=== PATIENT | female | born 1990 | race Caucasian/White ===

== ENCOUNTER 2016-11-08 14:32 | Emergency (ER) | payer OTHER ==
[2016-11-08 14:39] VITALS: BP 137/76; RESP 20; TEMP 97.5
[2016-11-08] MEDS ORDERED: IPRATROPIUM-ALBUTEROL 3 ML NEB INHALATION STA (15:11)
[2016-11-08] MEDS ORDERED: ACETAMINOPHEN TAB 500 MG TAB PO STA (15:12)
--- NOTE | 2016-11-08 15:16 | ED ---
General Adult HPI - General Chief complaint: Recheck/Abnormal Lab/Rx Stated complaint: Abd Pain Time Seen by Provider: 11/08/16 15:06 Source: patient Mode of arrival: ambulatory Limitations: no limitations - History of Present Illness Initial comments: This 25-year-old white female presents with a complaint of some suprapubic abdominal pain which started approximately 3 hours ago. She also complains of some shortness of breath. She has had a cough for the past 3 days. She does have a history of asthma. She denies any production. She denies any actual fever. Severity is mild. The abdominal pain has resolved upon evaluation. She denies any urinary symptoms or possibility of . No other complaints or modifying factors. - Related Data Previous Rx's Medication Instructions Recorded Albuterol Sulfate [Proair Hfa] 1 - 2 puff INHALATION Q6HR PRN #1 11/08/16 inhaler Allergies Allergy/AdvReac Type Severity Reaction Status Date / Time No Known Allergies Allergy Verified 11/08/16 15:13 Review of Systems ROS Statement: Those systems with pertinent positive or pertinent negative responses have been documented in the HPI. ROS Other: All systems not noted in ROS Statement are negative. Past Medical History Past Medical History: Asthma History of Any Multi-Drug Resistant Organisms: None Reported Past Surgical History: Appendectomy, Section Additional Past Surgical History / Comment(s): duodenal surgery in childhood Past Anesthesia/Blood Transfusion Reactions: No Reported Reaction Past Psychological History: No Psychological Hx Reported Smoking Status: Never smoker - Past Family History Mother Family Medical History: No Reported History General Exam - General Exam Comments Initial Comments: GENERAL: The patient is well nourished and well hydrated. VITAL SIGNS: Heart rate, blood pressure, respiratory rate reviewed as recorded in nurse's notes. EYES: Pupils are round and reactive. Extraocular movements are intact. No conjunctival / lid redness or swelling. ENT: No external evidence of injury, swelling, or ecchymosis. Airway is patent. Throat is clear. NECK: Nontender. No swelling or evidence of injury. No subcutaneous emphysema. Trachea is midline. No thyroid mass. HEART: Regular rate and rhythm. Good peripheral pulses. LUNGS/CHEST: Breath sounds clear and equal bilaterally. No rales, rhonchi, or wheezes. No ecchymosis, subcutaneous emphysema, or tenderness. ABDOMEN: Abdomen soft without tenderness. No palpable masses or organomegaly. No peritoneal signs. No abdominal wall swelling or ecchymosis. EXTREMITIES: No extremity tenderness. Normal muscle tone and function. No thoracolumbar tenderness. NEUROLOGIC: Sensation is grossly intact. Cranial nerve exam reveals face is symmetrical, tongue is midline, speech is clear. SKIN: No abrasions or ecchymosis is noted. No induration or masses noted. PSYCHIATRIC: Alert and oriented. Appropriate behavior and judgment. Limitations: no limitations Course Vital Signs 11/08/16 11/08/16 11/08/16 14:36 15:16 15:35 Temperature 97.5 F L Pulse Rate 99 99 102 H Respiratory 20 Rate Blood Pressure 137/76 O2 Sat by Pulse 100 Oximetry Medical Decision Making - Medical Decision Making The patient was seen and examined. All diagnostics were reviewed. She does receive some Tylenol as well as DuoNeb breathing treatment. The chest x-ray does not show any acute processes. The abdominal portion x-rays negative. The urinalysis does not show any evidence of infection. The test is negative. The exact cause of patient's symptoms are not definitively determined. It is felt as though she is stable for discharge. She may have had a slight degree of asthma exacerbation will be prescribed an inhaler. She is instructed to take Tylenol and/or Motrin if needed for pain and leaves in no distress. - Lab Data Lab Results 11/08/16 11/08/16 Range/Units 15:19 15:19 Urine Color Yellow Urine Appearance Clear (Clear) Urine pH 7.0 (5.0-8.0) Ur Specific [place] 1.017 (1.001-1.035) Urine Protein Trace H (Negative) Urine Glucose (UA) Negative (Negative) Urine Ketones Negative (Negative) Urine Blood Negative (Negative) Urine Nitrite Negative (Negative) Urine Bilirubin Negative (Negative) Urine Urobilinogen <2.0 (<2.0) mg/dL Ur Leukocyte Esterase Negative (Negative) Urine HCG, Qual Not Detected (Not Detectd) Disposition Clinical Impression: Abdominal pain, Dyspnea, Asthma Disposition: HOME SELF-CARE Condition: Good Instructions: Abdominal Pain (ED), Dyspnea (ED), Asthma (ED) Additional Instructions: Please take Tylenol and/or Motrin if needed for pain. Prescriptions: Albuterol Sulfate [Proair Hfa] 1 - 2 puff INHALATION Q6HR PRN #1 inhaler PRN Reason: Shortness Of Breath Or Wheezing Referrals: None,Stated [Primary Care Provider] - 1-2 days Time of Disposition: 17:03
[2016-11-08 15:24] LABS: Appearance,Urine Clear (Clear); Bilirubin,Urine Negative (Negative); Glucose,Urine (UA) Negative (Negative); Ketones,Urine Negative (Negative); Leukocyte Esterase,Urine Negative (Negative); Nitrite,Urine Negative (Negative); Protein,Urine Trace (Negative); Specific Gravity,Urine 1.017 (1.001-1.035); UA Billing (MACRO vs. MICRO) CHEM; Urobilinogen,Urine <2.0 mg/dL (<2.0)
[2016-11-08 15:35] VITALS: PULSE 102
--- NOTE | 2016-11-08 16:52 | XR ---
EXAMINATION TYPE: XR abdomen acute w cxr DATE OF EXAM: 11/08/2016 COMPARISON: NONE HISTORY: Chest pain TECHNIQUE: Supine, upright, and left side down lateral decubitus views of the abdomen are obtained. FINDINGS: Heart and mediastinum are normal. Lungs are clear. Diaphragm is normal. Bowel gas pattern is normal. There is no sign of intestinal obstruction or pneumoperitoneum. Fecal pa ttern is normal. There are no pathologic calcifications over the kidneys. IMPRESSION: Nonacute abdomen. Normal chest. Chest is stable compared to 10/12/2008.
== END 2016-11-08 17:19 | disposition home or self-care (01) ==
LOC: EC 14:32
DX: J45.909 Unspecified asthma, uncomplicated (principal); R10.30 Lower abdominal pain, unspecified; Z90.49 Acquired absence of other specified parts of digestive tract
CPT/HCPCS: 74022; 81003; 81025; 94640; 99285

== ENCOUNTER 2016-12-21 06:22 | Emergency (ER) | payer OTHER ==
[2016-12-21 06:26] VITALS: BP 156/72; PULSE 105; TEMP 97.1
--- NOTE | 2016-12-21 06:27 | ED ---
General Adult HPI - General Stated complaint: BRANDEN Time Seen by Provider: 12/21/16 06:22 Source: RN notes reviewed - History of Present Illness Initial comments: This is a 26-year-old female with past medical history significant for asthma. Patient states she was at work he started having some difficulty breathing took a couple of puffs on her inhaler and then became anxious she states that she couldn't tell she is having difficulty breathing or was anxiety. Patient called the ambulance and was arrived they stated that she was 98% on room air and having no ability breathing objectively. They did give the patient one breathing treatment when she arrived at the emergency department she was oxygenating 100%. Patient denies any fever chills or cough. Patient denies any chest pain or palpitations. Patient states she's feeling back to her baseline at this time. - Related Data Previous Rx's Medication Instructions Recorded Albuterol Sulfate [Proair Hfa] 1 - 2 puff INHALATION Q6HR PRN #1 11/08/16 inhaler Allergies Allergy/AdvReac Type Severity Reaction Status Date / Time No Known Allergies Allergy Verified 11/08/16 15:13 Review of Systems ROS Statement: Those systems with pertinent positive or pertinent negative responses have been documented in the HPI. ROS Other: All systems not noted in ROS Statement are negative. Past Medical History Past Medical History: Asthma History of Any Multi-Drug Resistant Organisms: None Reported Past Surgical History: Appendectomy, Section Additional Past Surgical History / Comment(s): duodenal surgery in childhood Past Anesthesia/Blood Transfusion Reactions: No Reported Reaction Past Psychological History: No Psychological Hx Reported Smoking Status: Never smoker - Past Family History Mother Family Medical History: No Reported History General Exam - General Exam Comments Initial Comments: GENERAL: Patient is well-developed and well-nourished. Patient is nontoxic and well- hydrated and is in no distress. ENT: Neck is soft and supple. No significant lymphadenopathy is noted. Oropharynx is clear. Moist mucous membranes. Neck has full range of motion without eliciting any pain. EYES: The sclera were anicteric and conjunctiva were pink and moist. Extraocular movements were intact and pupils were equal round and reactive to light. Eyelids were unremarkable. PULMONARY: Unlabored respirations. Good breath sounds bilaterally. No audible rales rhonchi or wheezing was noted. CARDIOVASCULAR: There is a regular rate and rhythm without any murmurs gallops or rubs. ABDOMEN: Soft and nontender with normal bowel sounds. SKIN: Skin is clear with no lesions or rashes and otherwise unremarkable. NEUROLOGIC: Patient is alert and oriented x3. Cranial nerves II through XII are grossly intact. Motor and sensory are also intact. Normal speech, volume and content. Symmetrical smile. MUSCULOSKELETAL: Normal extremities with adequate strength and full range of motion. No lower extremity swelling or edema. No calf tenderness. LYMPHATICS: No significant lymphadenopathy is noted PSYCHIATRIC: Normal psychiatric evaluation. Disposition Clinical Impression: Asthma attack Disposition: HOME SELF-CARE Condition: Good Instructions: Asthma (ED) Referrals: None,Stated [Primary Care Provider] - 1-2 days Time of Disposition: 06:27
[2016-12-21 06:31] VITALS: RESP 18
== END 2016-12-21 06:51 | disposition home or self-care (01) ==
LOC: EC 06:22
DX: J45.909 Unspecified asthma, uncomplicated (principal)
CPT/HCPCS: 99285

== ENCOUNTER 2017-09-22 11:37 | Emergency (ER) | payer OTHER ==
[2017-09-22 11:46] VITALS: BP 138/94; PULSE 92; RESP 20; TEMP 98.1
--- NOTE | 2017-09-22 12:23 | ED ---
Extremity Problem HPI - General Chief complaint: Extremity Problem,Nontraumatic Stated complaint: Foot Pain Time Seen by Provider: 09/22/17 12:08 Source: patient, RN notes reviewed Mode of arrival: ambulatory Limitations: no limitations - History of Present Illness Initial comments: This this is a 26-year-old female who presents to the emergency department with chief complaint of left foot pain. Patient states that she has been experiencing plantar foot pain for the past couple of months. Pain is from the heel to the pad of the foot. She states that the pain is made worse after working. Patient describes the pain as sharp and shooting. She states that she has to walk on the lateral aspect of her foot to take pressure off of the bottom of her foot. She currently states that she is experiencing no pain, however over the past few days she has been unable to walk on the foot due to pain. Patient denies any specific injuries or trauma. She does state that her foot becomes swollen after being on it all day. She states that she has been elevating it and taking ibuprofen with minimal relief. Denies fevers or chills , chest pain or shortness of breath, abdominal pain, nausea or vomiting. - Related Data Previous Rx's Medication Instructions Recorded Albuterol Sulfate [Proair Hfa] 1 - 2 puff INHALATION Q6HR PRN #1 11/08/16 inhaler Allergies Allergy/AdvReac Type Severity Reaction Status Date / Time No Known Allergies Allergy Verified 09/22/17 11:46 Review of Systems ROS Statement: Those systems with pertinent positive or pertinent negative responses have been documented in the HPI. ROS Other: All systems not noted in ROS Statement are negative. Past Medical History Past Medical History: Asthma History of Any Multi-Drug Resistant Organisms: None Reported Past Surgical History: Appendectomy, Section Additional Past Surgical History / Comment(s): duodenal surgery in childhood Past Anesthesia/Blood Transfusion Reactions: No Reported Reaction Past Psychological History: No Psychological Hx Reported Smoking Status: Never smoker Past Alcohol Use History: None Reported Past Drug Use History: None Reported - Past Family History Mother Family Medical History: No Reported History General Exam - General Exam Comments Initial Comments: General: Awake and alert, well-developed; in no apparent distress. Patient sitting comfortably on ED stretcher. HEENT: Head atraumatic, normocephalic. Pupils are equal, round and reactive to light. Extraocular movements intact. Oropharynx moist without erythema or exudate. Neck: Supple. Normal ROM. Cardiovascular: Regular rate and rhythm. No murmurs, rubs or gallops. Chest symmetrical. Respiratory: Lungs clear to auscultation bilaterally. No wheezes, rales or rhonchi. Normal respiratory effort with no use of accessory muscles. Musculoskeletal: Normal range of motion of the left foot and digits. No tenderness on palpation of entire foot. No erythema, swelling, ecchymosis or gross deformities noted. Sensation is intact. Pedal pulses are 2+ equal and palpable bilaterally. Ambulating normally. Skin: Coqui, warm and dry without rashes or lesions. Neurological: Alert and oriented x3. CN II-XII grossly intact. Speech is fluent and answers are appropriate. No focal neuro deficits. Psychiatric: Normal mood and affect. No overt signs of depression or anxiety noted. Limitations: no limitations Course Vital Signs 09/22/17 11:43 Temperature 98.1 F Pulse Rate 92 Respiratory 20 Rate Blood Pressure 138/94 O2 Sat by Pulse 98 Oximetry Medical Decision Making - Medical Decision Making This is a 26 year-old female who presents to the emergency department with chief complaint of left foot pain for two months. Pain increases after being on the foot for long periods of time, specifically after finishing her shift at work. Pain is described as sharp and shooting from the heel to the pad of the left foot. Currently, no pain is reported. Patient is ambulating normally and there is no tenderness on palpation. X-ray of the left foot was obtained and revealed no acute fractures but did note a small plantar spur. Patient likely suffering from plantar fasciitis. Recommended ibuprofen, ice and arch support shoe inserts. Recommended following up with PCP. Vital signs are stable and patient is in no acute distress. She will be discharged home at this time. She is in agreement with plan and voices understanding. All questions answered. - Radiology Data Radiology results: report reviewed, image reviewed X-ray left foot impression: Small plantar spur. Disposition Clinical Impression: Plantar fasciitis, Calcaneal spur Disposition: HOME SELF-CARE Condition: Good Instructions: Plantar Fasciitis (ED), Heel Spur (ED) Additional Instructions: Please rest, ice, elevate, take ibuprofen and use heel/arch support shoe inserts. Please follow up with primary care provider within 1-2 days. Return to emergency department if symptoms should worsen or any concerns arise. Is patient prescribed a controlled substance at d/c from ED?: No Referrals: Prudence Forrest MD [Primary Care Provider] - 1-2 days Time of Disposition: 12:41
--- NOTE | 2017-09-22 12:34 | XR ---
Left foot HISTORY: Left foot pain 3 views of the left foot Bone mineralization, joint spaces and alignment are maintained. There is no fracture or dislocation. No periostitis or radiopaque foreign body. There is a small plantar cranial spur. IMPRESSION: Small plantar spur.
== END 2017-09-22 12:47 | disposition home or self-care (01) ==
LOC: EC 11:37
DX: M72.2 Plantar fascial fibromatosis (principal); M77.32 Calcaneal spur, left foot
CPT/HCPCS: 99283

== ENCOUNTER 2017-10-10 13:30 | Emergency (ER) | payer OTHER ==
[2017-10-10 13:42] VITALS: RESP 18
--- NOTE | 2017-10-10 13:51 | ED ---
General Adult HPI - General Chief complaint: Extremity Injury, Upper Stated complaint: Fingernail removed Time Seen by Provider: 10/10/17 13:50 Source: patient, RN notes reviewed Mode of arrival: ambulatory Limitations: no limitations - History of Present Illness Initial comments: This is a 26-year-old female with past medical history of asthma who presents today for chief complaint of right third finger nail hanging off. Patient states that about a month ago she slammed her right middle finger into a door, the nail bruise and eventually began to fall off. Patient denies pain in the finger since the time of injury. Patient states that for the past 2 weeks the finger-nose but again, and everything, she states that this is bothersome and [facility] the right middle nail. Patient denies any pain in the right middle finger today, paresthesias, numbness, tingling, loss of sensation, erythema of the right middle finger, lacerations or abrasions to the nailbed or striking tissues of the right middle finger. In addition patient denies any recent fever, chills, shortness of breath, chest pain, back pain, abdominal pain, nausea or vomiting, numbness or tingling, dysuria or hematuria, constipation or diarrhea, headaches or visual changes, or any other complaints. - Related Data Home Medications Medication Instructions Recorded Confirmed No Known Home Medications 10/10/17 10/10/17 Allergies Allergy/AdvReac Type Severity Reaction Status Date / Time No Known Allergies Allergy Verified 10/10/17 13:48 Review of Systems ROS Statement: Those systems with pertinent positive or pertinent negative responses have been documented in the HPI. ROS Other: All systems not noted in ROS Statement are negative. Past Medical History Past Medical History: Asthma History of Any Multi-Drug Resistant Organisms: None Reported Past Surgical History: Appendectomy, Section Additional Past Surgical History / Comment(s): duodenal surgery in childhood Past Anesthesia/Blood Transfusion Reactions: No Reported Reaction Past Psychological History: No Psychological Hx Reported Smoking Status: Never smoker Past Alcohol Use History: None Reported Past Drug Use History: None Reported - Past Family History Mother Family Medical History: No Reported History General Exam - General Exam Comments Initial Comments: General: The patient is awake and alert, in no distress, and does not appear acutely ill. Eye: Pupils are equal, round and reactive to light, extra-ocular movements are intact. No nystagmus. There is normal conjunctiva bilaterally. No signs of icterus. Ears, nose, mouth and throat: There are moist mucous membranes and no oral lesions. Neck: The neck is supple, there is no tenderness or JVD. Cardiovascular: There is a regular rate and rhythm. No murmur, rub or gallop is appreciated. Respiratory: Lungs are clear to auscultation, respirations are non-labored, breath sounds are equal. No wheezes, stridor, rales, or rhonchi. Musculoskeletal: Upon inspection of the right hand the right middle finger nail is not adhered to the nailbed, there is new nail growth present. No evidence of damage to the nailbed or surrounding soft tissues. Patient is full sensation of the right hand and all 5 digits equally bilaterally. Full range of motion and strength of the DIP, PIP and MCP joint of all 5 digits of the right hand that is equal in comparison of the left. No tenderness to palpation over the right middle finger. Pulses equal bilaterally 2+ radial. Neurological: A&O x 3. CN II-XII intact, There are no obvious motor or sensory deficits. Coordination appears grossly intact. Speech is normal. Skin: Skin is warm and dry and no rashes or lesions are noted. Psychiatric: Cooperative, appropriate mood & affect, normal judgment. Limitations: no limitations Course Vital Signs 10/10/17 13:38 Temperature 98.1 F Pulse Rate 84 Respiratory 18 Rate Blood Pressure 121/76 O2 Sat by Pulse 98 Oximetry Medical Decision Making - Medical Decision Making Area was cleansed with a chlorhexidine White, 3/4 of the right middle nail were removed using scissors. The remaining 1/4 was adhered to the nail bed. Pt was instructed to leave this area on for nail bed protection and to cut it back with finger nail clippers as it grow out with the new nail growth. A bandage was applied to the nail. Procedure went without complications. pt was instructed to return to the ER if the are became red, pain, warm or began draining. Pt agreed with plan. Plan was discussed with Dr. Esquivel in detail. pt was discharged in stable condition. Disposition Clinical Impression: Nail remnant, finger Disposition: HOME SELF-CARE Condition: Good Instructions: Nail Removal (ED) Additional Instructions: Please follow-up with family doctor in the next 2 days of symptoms have not improved. Please return to emergency room if the symptoms increase or worsen or for any other concerns. Is patient prescribed a controlled substance at d/c from ED?: No Referrals: Prudence Forrest MD [Primary Care Provider] - 1-2 days Time of Disposition: 14:08
[2017-10-10 14:15] VITALS: BP 131/88; PULSE 90; TEMP 96.4
== END 2017-10-10 14:13 | disposition home or self-care (01) ==
LOC: EC 13:30
DX: S61.302A Unspecified open wound of right middle finger with damage to nail, initial encounter (principal); W22.8XXA Striking against or struck by other objects, initial encounter; Y92.009 Unspecified place in unspecified non-institutional (private) residence as the place of occurrence of the external cause
CPT/HCPCS: 11730; 99283

== ENCOUNTER → 2017-12-05 | Outpatient (CLI) | payer OTHER ==
--- NOTE | 2017-12-05 09:12 | US ---
EXAMINATION TYPE: US abdomen complete DATE OF EXAM: 12/05/2017 COMPARISON: NONE CLINICAL HISTORY: R11.0 Chronic nausea. x 3 months EXAM MEASUREMENTS: Liver Length: 12.1 cm Gallbladder Wall: 0.1 cm CBD: 0.3 cm Spleen: 11.5 cm Right Kidney: 10.5 x 3.6 x 3.4 cm Left Kidney: 10.6 x 4.8 x 4.7 cm Pancreas: Partially obscured by overlying bowel gas Liver: Increased attenuation Gallbladder: wnl Evidence for sonographic Keating's sign: No CBD: wnl Spleen: wnl Right Kidney: Obscured by overlying bowel gas, Difficult to evaluate mid/lower pole. Left Kidney: wnl Upper IVC: wnl Abd Aorta: wnl The visualized liver is heterogeneously hyperechoic. No worrisome intrahepatic ductal dilatation is s een. Evaluation for focal masses suboptimal due to the heterogeneity. The intrahepatic portion of the IVC and proximal abdominal aorta are within normal limits. There is no evidence of cholelithiasis. Common bile duct is unremarkable. The visualized portions of the pancreas are homogenous. Portions of pancreatic head and tail are obscured by overlying bowel gas on images saved. The spleen is unrema rkable. Kidneys are symmetric and free of hydronephrosis. No renal lesions are seen. IMPRESSION: Suboptimal study without acute finding identified to account for patient's symptoms.
== END ==
LOC: RADUSWWP 07:31
PROVIDERS: ATTEND Family Medicine
DX: R11.0 Nausea (principal)
CPT/HCPCS: 76700

== ENCOUNTER → 2018-02-21 | Outpatient (CLI) | payer OTHER ==
--- NOTE | 2018-02-21 10:55 | NM ---
EXAMINATION TYPE: NM hepatobiliary w EF DATE OF EXAM: 02/21/2018 COMPARISON: NONE HISTORY: R11.0 Nausea alone / R74.8 Abn serum enzymes TECHNIQUE: After the intravenous administration of 5.17 mCi Tc 99m Mebrofenin hepatobiliary scintigra phy is performed. Immediate images post injection. FINDINGS: There is satisfactory initial accumulation of tracer by the liver. The gallbladder is visualized wit hin 8 minutes. The small bowel activity is noted within 54 minutes. At one hour 8 ounces of oral en sure plus is given to mimic CCK and gallbladder ejection fraction is calculated at 86%. IMPRESSION: Elevated gallbladder ejection fraction may reflect hypercontractile state.
== END | disposition home or self-care (01) ==
LOC: RADNMMAIN 08:14
PROVIDERS: ATTEND Family Medicine
DX: R11.0 Nausea (principal); R74.8 Abnormal levels of other serum enzymes
CPT/HCPCS: 78226; A9537

== ENCOUNTER 2018-03-13 07:29 | Observation (INO) | payer OTHER ==
[2018-03-10 15:30] VITALS: BMI 39.2
[~2018-03-13 07:29] MED LIST: DEXAMETHASONE SOD PHOSPHATE 10 MG/ML 1 ML VIAL IV ONE; HEPARIN SODIUM,PORCINE 5,000 UNIT/ML 1 ML VIAL SQ ONE; LIDOCAINE 1% 20 ML VIAL (10MG/ML) FOR IV START INTRADERMA PRN; MIDAZOLAM (PF) 2 MG/2 ML VIAL IV PRN; ONDANSETRON 4 MG/2 ML VIAL IVP ONE; ceFAZolin IN SWFI 2 GM/20 ML SYRINGE IVP ONE; fentaNYL (PF) 50 MCG/ML 2 ML AMP IV PRN
--- NOTE | 2018-03-13 08:10 | P.GSHP ---
History of Present Illness H&P Date: 03/13/18 Chief Complaint: Right upper quadrant pain This is a 27-year-old female who's had complete the right quadrant pain. Her recent HIDA scan shows an elevated ejection fraction consistent with biliary hyperkinesia's. She presents today for laparoscopic cholecystectomy. Past Medical History Past Medical History: Asthma Additional Past Medical History / Comment(s): GALLBLADDER DISORDER History of Any Multi-Drug Resistant Organisms: None Reported Past Surgical History: Appendectomy, Section Additional Past Surgical History / Comment(s): duodenal surgery in childhood Past Anesthesia/Blood Transfusion Reactions: No Reported Reaction Smoking Status: Never smoker - Past Family History Mother Family Medical History: No Reported History Medications and Allergies Home Medications Medication Instructions Recorded Confirmed Type Ranitidine HCl 150 mg PO BID 03/10/18 03/13/18 History Allergies Allergy/AdvReac Type Severity Reaction Status Date / Time No Known Allergies Allergy Verified 03/13/18 07:53 Surgical - Exam Vital Signs Pulse Resp BP Pulse Ox 89 16 144/88 98 03/13/18 08:04 03/13/18 08:04 03/13/18 08:04 03/13/18 08:04 - General well developed, no distress - Eyes PERRL - ENT normal pinna - Neck no masses - Respiratory normal expansion - Cardiovascular Rhythm: regular - Abdomen Abdomen: soft, non tender Assessment and Plan Assessment: Right upper quadrant pain Abnormal HIDA scan Chronic cholecystitis We'll perform laparoscopic cholecystectomy
[2018-03-13] MEDS: LACTATED RINGERS 1,000 ML IV SCH ×2 (08:27→09:06)
[2018-03-13] MEDS ORDERED: ceFAZolin IN SWFI 2 GM/20 ML SYRINGE IVP ONE (08:38)
[2018-03-13] MEDS ORDERED: BUPIVACAIN-EPI 0.25%-1:200,000 30 ML VIAL SQ ONE (08:51)
[2018-03-13] MEDS ORDERED: ONDANSETRON 4 MG/2 ML VIAL IVP PRN (10:14)
[2018-03-13] MEDS ORDERED: traMADol 50 MG TAB PO PRN (10:14)
[2018-03-13] MEDS ORDERED: NALOXONE 0.4 MG/ML 1 ML VIAL IV PRN (10:14)
[2018-03-13] MEDS ORDERED: ACETAMINOPHEN TAB 325 MG TAB PO PRN (10:14)
[2018-03-13] MEDS ORDERED: LACTATED RINGERS 1,000 ML IV ONE (10:14)
--- NOTE | 2018-03-13 10:21 | P.OP ---
Date of Procedure: 03/13/18 Preoperative Diagnosis: Cholecystitis Postoperative Diagnosis: Adhesions Cholecystitis Procedure(s) Performed: Laparoscopic lysis of extensive adhesions Open cholecystectomy Anesthesia: ALIN Surgeon: Javi Cooley Estimated Blood Loss (ml): 10 Pathology: other (Gallbladder) Condition: stable Disposition: PACU Operative Findings: Extensive adhesions Description of Procedure: Patient's placed the operative table in the supine position. She received general anesthesia. Her abdomen was prepped and draped usual sterile fashion. Patient had a transverse right mid abdominal incision and evidence of previous drains on the left side of the abdomen. Per history she had a duodenal injury as an 9-year-old child. The skin incision sites were anesthetized 1% local Xylocaine. Using 11 blade in an infraumbilical skin incision was made and then using a pair of [place] clamps the fascia was grasped and a Veress needles placed into the peritoneal Cavity. Position of the Veress needle was confirmed with a positive drop test. After adequate insufflation a 5 mm trochars placed into the peritoneal cavity. The laparoscope was placed the pleural cavity. The patient had significant adhesions across the midabdomen. Another 5 mm trocar was placed under direct vision in the right upper quadrant. And then approximately 20 minutes of operative time used to lyse adhesions. It was determined that there were 2 adhesions to safely do anal laparoscopic cholestatic. And at this point the procedure is converted to the open procedure. The trochars withdrawn. A standard right subcostal incision was made and then using cautery the abdominal wall was transected. The Leblanc retractors placed in the wound. Adhesions were lysed using sharp dissection. The gallbladder is visualized. The gallbladder was then grasped. Yasmeen clamps and then the gallbladder was taken down in a dome down fashion. The cystic artery was visualized and dissected. Cystic artery was then clipped and divided. Next the cystic duct was visualized. In the PDS Endoloop was placed around the gallbladder and secured around the cystic duct. The cystic duct was then transected and then the cystic stump was clipped. The Bovie was used to provide hemostasis of liver bed. The abdomen was irrigated. There is no bleeding seen. The fascia was closed in 2 layers using the PDS #1 suture. The skin was closed hussein. Patient tolerated the procedure well and was sent to recovery room in stable condition.
[2018-03-13] MEDS: KETOROLAC 30 MG/ML 1 ML VIAL IVP SCH ×3 (12:35→23:14)
[2018-03-13] MEDS: HYDROmorphone 0.5 MG/0.5 ML SYRINGE IVP PRN ×2 (12:50→17:43)
--- NOTE | 2018-03-13 14:53 | P.CONS ---
History of Present Illness - Reason for Consult Perioperative complication management - History of Present Illness 27-year-old admitted for elective to laparoscopic cholecystectomy for biliary hypokinesia, patient was having right upper quadrant abdominal pain. Patient successfully underwent surgery. Patient is still coming out of anesthesia denied any symptoms except for right upper quadrant abdominal pain denied any nausea and vomiting. Denied any fever chills dysuria. Review of Systems REVIEW OF SYSTEMS: CONSTITUTIONAL: No fever, no malaise, no fatigue. HEENT: No recent visual problems or hearing problems. Denied any sore throat. CARDIOVASCULAR: No chest pain, orthopnea, PND, no palpitations, no syncope. PULMONARY: No shortness of breath, no cough, no hemoptysis. GASTROINTESTINAL: No diarrhea, no nausea, no vomiting, NEUROLOGICAL: No headaches, no weakness, no numbness. HEMATOLOGICAL: Denies any bleeding or petechiae. GENITOURINARY: Denies any burning micturition, frequency, or urgency. MUSCULOSKELETAL/RHEUMATOLOGICAL: Denies any joint pain, swelling, or any muscle pain. ENDOCRINE: Denies any polyuria or polydipsia. The rest of the 14-point review of systems is negative. Past Medical History Past Medical History: Asthma Additional Past Medical History / Comment(s): GALLBLADDER DISORDER History of Any Multi-Drug Resistant Organisms: None Reported Past Surgical History: Appendectomy, Section Additional Past Surgical History / Comment(s): duodenal surgery in childhood Past Anesthesia/Blood Transfusion Reactions: No Reported Reaction Past Psychological History: No Psychological Hx Reported Smoking Status: Never smoker Past Alcohol Use History: None Reported Past Drug Use History: None Reported - Past Family History Mother Family Medical History: No Reported History Brother(s) Family Medical History: No Reported History Medications and Allergies Home Medications Medication Instructions Recorded Confirmed Type Ranitidine HCl 150 mg PO BID 03/10/18 03/13/18 History Allergies Allergy/AdvReac Type Severity Reaction Status Date / Time No Known Allergies Allergy Verified 03/13/18 07:53 Physical Exam Vitals: Vital Signs Temp Pulse Resp BP Pulse Ox 03/13/18 11:05 78 16 136/92 96 03/13/18 10:45 74 16 148/98 96 03/13/18 10:30 72 16 142/93 100 03/13/18 10:18 71 16 133/89 100 03/13/18 10:02 97.0 F L 71 18 146/97 95 03/13/18 08:05 98.4 F 03/13/18 08:04 89 16 144/88 98 Intake and Output 03/12/18 03/13/18 03/13/18 22:59 06:59 14:59 Intake Total 1600 Output Total 10 Balance 1590 Intake: IV 1600 Output: Estimated Blood Loss 10 Other: Weight 107.048 kg PHYSICAL EXAMINATION: GENERAL: The patient is alert and oriented x3, not in any acute distress. Well developed, well nourished. HEENT: Pupils are round and equally reacting to light. EOMI. No scleral icterus. No conjunctival pallor. Normocephalic, atraumatic. No pharyngeal erythema. No thyromegaly. CARDIOVASCULAR: S1 and S2 present. No murmurs, rubs, or gallops. PULMONARY: Chest is clear to auscultation, no wheezing or crackles. ABDOMEN: Soft, nontender, vaginal site area appears to be clean. MUSCULOSKELETAL: No joint swelling or deformity. EXTREMITIES: No cyanosis, clubbing, or pedal edema. NEUROLOGICAL: Gross neurological examination did not reveal any focal deficits. SKIN: No rashes. Assessment and Plan Plan: -Postoperative day 0 status post laparoscopic cholecystectomy for biliary hypokinesia: Pain management and due to prophylaxis as per primary service -Gastroesophageal reflux disease patient will be started on Pepcid IV Will monitor for any postoperative complications including infection, hypotension and will treat appropriately if she ends up having any of these.
[2018-03-14] MEDS: HYDROmorphone 0.5 MG/0.5 ML SYRINGE IVP PRN (03:08)
[2018-03-14] MEDS: KETOROLAC 30 MG/ML 1 ML VIAL IVP SCH ×4 (05:00→21:24)
[2018-03-14] MEDS: HYDROcodone/APAP 5-325MG 1 EACH TAB PO PRN ×2 (07:34→23:37)
[2018-03-14] MEDS: LACTATED RINGERS 1,000 ML IV SCH (10:33)
--- NOTE | 2018-03-14 10:33 | P.PN ---
Subjective 27-year-old admitted for laparoscopic cholecystectomy successfully underwent surgery does have good bowel sounds not pass gas yet did burp today. Does have good bowel sounds. It is comparing of some soreness in the surgical site area. Constitutional: Denied any fatigue denied any fever. Cardio vascular: denied any chest pain, palpitations Gastrointestinal denied any nausea vomiting Pulmonary: Denied any shortness of breath cough Neurologic denied any new focal deficits All inpatient medications were reviewed and appropriate changes in these medications as dictated in the interval history and assessment and plan. Objective - Vital Signs Vital signs: Vital Signs Temp 98.5 F 03/13/18 23:18 Pulse 89 03/13/18 23:18 Resp 16 03/13/18 23:18 BP 149/102 03/13/18 23:18 Pulse Ox 100 03/13/18 23:18 Intake & Output 03/13/18 03/14/18 03/14/18 18:59 06:59 18:59 Intake Total 1780 1250 Output Total 260 Balance 1520 1250 Weight 107.048 kg Intake: IV 1600 Intake, IV Titration 1250 Amount Lactated Ringers 1,000 ml 1250 @ 125 mls/hr IV .Q8H [facility] Rx#:[id number] Oral 180 Output: Urine 250 Estimated Blood Loss 10 Other: # Voids 1 - Exam PHYSICAL EXAMINATION: GENERAL: The patient is alert and oriented x3, not in any acute distress. Well developed, well nourished. HEENT: Pupils are round and equally reacting to light. EOMI. No scleral icterus. No conjunctival pallor. Normocephalic, atraumatic. No pharyngeal erythema. No thyromegaly. CARDIOVASCULAR: S1 and S2 present. No murmurs, rubs, or gallops. PULMONARY: Chest is clear to auscultation, no wheezing or crackles. ABDOMEN: Soft, nontender, vaginal site area appears to be clean. MUSCULOSKELETAL: No joint swelling or deformity. EXTREMITIES: No cyanosis, clubbing, or pedal edema. NEUROLOGICAL: Gross neurological examination did not reveal any focal deficits. SKIN: No rashes. Assessment and Plan Plan: -Postoperative day 0 status post laparoscopic cholecystectomy for biliary hypokinesia: Pain management and due to prophylaxis as per primary service -Gastroesophageal reflux disease, patient will continue Zantac upon discharge Patient probably will be discharged today, I asked patient to ambulate in the hallways
[2018-03-14] MEDS: ENOXAPARIN 40 MG/0.4 ML SYRINGE SQ SCH (10:35)
--- NOTE | 2018-03-14 14:03 | P.PN ---
Progress Note - Text Progress Note Date: 03/14/18 The patient's postoperative day 1 from scopic lysis of adhesions and open cholecystectomy. She has complaints of incisional pain. On exam her vital signs are stable. Her abdomen soft. Incision site is clean dry and intact. Patient is doing fairly well. She will discharge home tomorrow.
[2018-03-15] MEDS: KETOROLAC 30 MG/ML 1 ML VIAL IVP SCH (03:53)
[2018-03-15 07:38] VITALS: BP 142/97; PULSE 88; RESP 16; TEMP 98.1
[2018-03-15] MEDS: LACTATED RINGERS 1,000 ML IV SCH (07:41)
[2018-03-15] MEDS: HYDROcodone/APAP 5-325MG 1 EACH TAB PO PRN (07:44)
[2018-03-15] MEDS: ENOXAPARIN 40 MG/0.4 ML SYRINGE SQ SCH (07:44)
--- NOTE | 2018-03-15 10:05 | P.PN ---
Subjective Progress Note Date: 03/15/18 Principal diagnosis: Cholecystitis Patient doing well today. Pain is improved. Tolerating some of her diet. Not very active thus far. No labs. Objective - Vital Signs Vital signs: Vital Signs Temp 98.1 F 03/15/18 07:00 Pulse 88 03/15/18 07:00 Resp 16 03/15/18 07:45 BP 142/97 03/15/18 07:00 Pulse Ox 96 03/15/18 07:00 Intake & Output 03/14/18 03/15/18 03/15/18 18:59 06:59 18:59 Intake Total 160 Balance 160 Intake: Intake, IV Titration 160 Amount Lactated Ringers 1,000 ml 160 @ 20 mls/hr IV .Q24H [facility] Rx#:[id number] Other: Voiding Method Toilet - Exam Endocrine: Soft, nondistended, incision is clean and dry, mild tenderness Assessment and Plan Plan: Check morning labs. Possible discharge later today or tomorrow morning if more active. Prescription for [place] provided.
[2018-03-15 10:59] LABS: Basophils % (A) 0 %; Eosinophils # (A) 0.1 k/uL (0-0.7); Eosinophils % (A) 1 %; HCT 36.9 % (34.0-46.0); Lymphocytes # (A) 2.4 k/uL (1.0-4.8); Lymphocytes % (A) 26 %; MCH 25.8 pg (25.0-35.0); MCHC 32.4 g/dL (31.0-37.0); MCV 79.8 fL (80.0-100.0); Monocytes # (A) 0.8 k/uL (0-1.0); Monocytes % (A) 8 %; Neutrophils # (A) 5.6 k/uL (1.3-7.7); Neutrophils % (A) 62 %; Platelet Count 238 k/uL (150-450); RBC 4.63 m/uL (3.80-5.40); RDW 14.5 % (11.5-15.5)
[2018-03-15 11:18] LABS: ALT 61 U/L (9-52); AST 54 U/L (14-36); Albumin 3.5 g/dL (3.5-5.0); Alkaline Phosphatase 93 U/L (38-126); Anion Gap 6 mmol/L; Blood Urea Nitrogen 11 mg/dL (7-17); Calcium 9.2 mg/dL (8.4-10.2); Carbon Dioxide 29 mmol/L (22-30); Chloride 105 mmol/L (98-107); Glucose 88 mg/dL (74-99); Potassium 4.1 mmol/L (3.5-5.1); Sodium 140 mmol/L (137-145); Total Bilirubin 0.3 mg/dL (0.2-1.3); Total Protein 6.4 g/dL (6.3-8.2)
--- NOTE | 2018-03-15 12:03 | P.PN ---
Subjective 27-year-old admitted for laparoscopic cholecystectomy successfully underwent surgery does have good bowel sounds not pass gas yet did burp today. Does have good bowel sounds. It is comparing of some soreness in the surgical site area. 03/15/2018 Patient is clinically doing well at this time no overnight events did pass gas last night did not move her bowel yet still complaining of some soreness in the right upper quadrant Constitutional: Denied any fatigue denied any fever. Cardio vascular: denied any chest pain, palpitations Gastrointestinal denied any nausea vomiting Pulmonary: Denied any shortness of breath cough Neurologic denied any new focal deficits All inpatient medications were reviewed and appropriate changes in these medications as dictated in the interval history and assessment and plan. Objective - Vital Signs Vital signs: Vital Signs Temp 98.1 F 03/15/18 07:00 Pulse 88 03/15/18 07:00 Resp 16 03/15/18 07:45 BP 142/97 03/15/18 07:00 Pulse Ox 96 03/15/18 07:00 Intake & Output 03/14/18 03/15/18 03/15/18 18:59 06:59 18:59 Intake Total 160 Balance 160 Intake: Intake, IV Titration 160 Amount Lactated Ringers 1,000 ml 160 @ 20 mls/hr IV .Q24H [facility] Rx#:[id number] Other: Voiding Method Toilet - Exam PHYSICAL EXAMINATION: GENERAL: The patient is alert and oriented x3, not in any acute distress. Well developed, well nourished. HEENT: Pupils are round and equally reacting to light. EOMI. No scleral icterus. No conjunctival pallor. Normocephalic, atraumatic. No pharyngeal erythema. No thyromegaly. CARDIOVASCULAR: S1 and S2 present. No murmurs, rubs, or gallops. PULMONARY: Chest is clear to auscultation, no wheezing or crackles. ABDOMEN: Soft, nontender, vaginal site area appears to be clean. MUSCULOSKELETAL: No joint swelling or deformity. EXTREMITIES: No cyanosis, clubbing, or pedal edema. NEUROLOGICAL: Gross neurological examination did not reveal any focal deficits. SKIN: No rashes. - Labs CBC & Chem 7: 03/15/18 10:36 03/15/18 10:36 Labs: Abnormal Lab Results - Last 24 Hours (Table) 03/15/18 03/15/18 Range/Units 10:36 10:36 MCV 79.8 L (80.0-100.0) fL AST 54 H (14-36) U/L ALT 61 H (9-52) U/L Assessment and Plan Plan: -Postoperative day 0 status post laparoscopic cholecystectomy for biliary hypokinesia: Pain management and due to prophylaxis as per primary service -Gastroesophageal reflux disease, patient will continue Zantac upon discharge Patient probably will be discharged today.
== END 2018-03-15 14:06 | disposition home health service (06) ==
LOC: OR 07:29 → 4SSUR 10:11 → OR 03-14 05:55
PROVIDERS: ADMIT Surgery; ATTEND Surgery
DX: K81.1 Chronic cholecystitis (principal); K66.0 Peritoneal adhesions (postprocedural) (postinfection); J45.909 Unspecified asthma, uncomplicated; Z79.899 Other long term (current) drug therapy; K21.9 Gastro-esophageal reflux disease without esophagitis
CPT/HCPCS: 81025; 88304; 80053; 85025; 47600; G0378 ×2; J1644; J1100; J2405; J1650 ×2; J1885 ×3; J1170 ×2; J0690

== ENCOUNTER 2018-04-07 16:09 | Emergency (ER) | payer OTHER ==
[2018-04-07 16:35] VITALS: TEMP 98
[2018-04-07] MEDS ORDERED: KETOROLAC 30 MG/ML 1 ML VIAL IVP STA (17:51)
[2018-04-07] MEDS ORDERED: SODIUM CHLORIDE 0.9% 1,000 ML IV STA (17:51)
--- NOTE | 2018-04-07 18:43 | XR ---
EXAMINATION TYPE: XR chest 2V DATE OF EXAM: 04/07/2018 COMPARISON: 10/12/2008 HISTORY: Right-sided pain TECHNIQUE: Frontal and lateral views of the chest are obtained. FINDINGS: Heart and mediastinum are normal. Lungs are clear. Diaphragm is normal. Bony thorax appear s normal. IMPRESSION: Normal chest. No change.
--- NOTE | 2018-04-07 19:01 | CT ---
EXAMINATION TYPE: CT abdomen pelvis wo con DATE OF EXAM: 04/07/2018 COMPARISON: None HISTORY: Upper right quadrant and flank pain. CT DLP: 993.9 mGycm Automated exposure control for dose reduction was used. TECHNIQUE: Helical acquisition of images was performed from the lung bases through the pelvis. FINDINGS: Lung bases are clear. There is no pleural effusion. Heart appears enlarged. Spleen is slightly enlarg ed and measures 14 cm. Stomach appears normal. There are clips from cholecystectomy. Liver shows norm al size and contour. Bile ducts are not dilated. There is no adrenal mass. There is some lobulation of the contours of the kidneys and more on the rig ht side. There is a small right kidney. There is no retroperitoneal adenopathy. Ureters are do not ap pear dilated. Bladder distends smoothly. There is no inguinal hernia. There are a few bilateral ingui nal lymph nodes. There is no ascites. Uterus is anteverted. I see no free fluid in the pelvis. There is no mesenteric edema or adenopathy. There is no ascites. There is no evidence of a bowel obstructio n. There is no intestinal wall thickening. There is no evidence of thickened appendix. The lumbar vertebra have fairly normal spacing and alignment. There is no compression fracture. Poste rior elements are intact. Bony pelvis is intact. IMPRESSION: THERE IS DEFORMITY OF BOTH KIDNEYS AND MUCH MORE ON THE RIGHT SIDE CONSISTENT WITH SCARRING AND CHRON IC PYELONEPHRITIS. RIGHT RENAL ATROPHY. NO EVIDENCE OF RENAL STONE OR OBSTRUCTION. MILD SPLENOMEGALY.
[2018-04-07 19:08] LABS: Basophils % (A) 0 %; Eosinophils # (A) 0.2 k/uL (0-0.7); Eosinophils % (A) 2 %; HCT 37.8 % (34.0-46.0); HGB 12.4 gm/dL (11.4-16.0); Lymphocytes # (A) 3.2 k/uL (1.0-4.8); Lymphocytes % (A) 37 %; MCHC 32.9 g/dL (31.0-37.0); MCV 78.8 fL (80.0-100.0); Mean Platelet Volume 6.7; Monocytes # (A) 0.7 k/uL (0-1.0); Monocytes % (A) 8 %; Neutrophils # (A) 4.3 k/uL (1.3-7.7); Neutrophils % (A) 49 %; Platelet Count 300 k/uL (150-450); RBC 4.79 m/uL (3.80-5.40); WBC 8.7 k/uL (3.8-10.6)
[2018-04-07 19:16] LABS: Appearance,Urine Cloudy (Clear); Bacteria,Urine Occasional /hpf; Bilirubin,Urine Negative (Negative); Blood,Urine Negative (Negative); Color,Urine Yellow; Glucose,Urine (UA) Negative (Negative); Ketones,Urine Negative (Negative); Leukocyte Esterase,Urine Negative (Negative); Mucus,Urine Rare /hpf; Nitrite,Urine Negative (Negative); PH, Urine 6.5 (5.0-8.0); Protein,Urine Trace (Negative); RBC,Urine 1 /hpf (0-5); Specific Gravity,Urine 1.019 (1.001-1.035); Squamous Epithelial Cell,Urine 7 /hpf (0-4); Urobilinogen,Urine <2.0 mg/dL (<2.0); WBC,Urine 3 /hpf (0-5)
--- NOTE | 2018-04-07 19:16 | ED ---
Abdominal Pain HPI - General Chief Complaint: Abdominal Pain Stated Complaint: side pain Time Seen by Provider: 04/07/18 17:50 Source: patient Mode of arrival: ambulatory Limitations: no limitations - History of Present Illness Initial Comments: 27 year [id number] with past medical history of recent cholecystectomy and asthma presenting for right upper quadrant and right flank pain x 1 week. Patient states that she had her gallbladder removed the summer, she states she had postoperative pain however this resolved shortly after. Patient states that about a week ago she began experiencing fluctuating pain in the right upper quadrant and right flank region. Patient has any nausea, vomiting, diarrhea, fever, chills, urgency, frequency or dysuria. Patient denies any cough. Patient denies or vaginal discharge. Patient states that she presented to the [facility] for evaluation yesterday evening, where abdominal x-rays were obtained as well as laboratory studies revealing no Sudafed findings and patient was discharged. Patient presents today for evaluation when symptoms persisted. Remainder of ROS negative, patient denies any recent fever, chills, shortness of breath, chest pain, back pain, nausea or vomiting, numbness or tingling, dysuria or hematuria, constipation or diarrhea, headaches or visual changes, or any other complaints. Upon arrival pt appear uncomfortable, but no acute distress or toxicity. - Related Data Home Medications Medication Instructions Recorded Confirmed Ibuprofen [Motrin Ib] 800 mg PO Q6H PRN 04/07/18 04/07/18 Allergies Allergy/AdvReac Type Severity Reaction Status Date / Time No Known Allergies Allergy Verified 04/07/18 17:20 Review of Systems ROS Statement: Those systems with pertinent positive or pertinent negative responses have been documented in the HPI. ROS Other: All systems not noted in ROS Statement are negative. Past Medical History Past Medical History: Asthma Additional Past Medical History / Comment(s): GALLBLADDER DISORDER History of Any Multi-Drug Resistant Organisms: None Reported Past Surgical History: Appendectomy, Section, Cholecystectomy Additional Past Surgical History / Comment(s): duodenal surgery in childhood Past Anesthesia/Blood Transfusion Reactions: No Reported Reaction Past Psychological History: No Psychological Hx Reported Smoking Status: Never smoker Past Alcohol Use History: None Reported Past Drug Use History: None Reported - Past Family History Mother Family Medical History: No Reported History Brother(s) Family Medical History: No Reported History General Exam - General Exam Comments Initial Comments: General: The patient is awake and alert, in no distress, and does not appear acutely ill. Eye: Pupils are equal, round and reactive to light, extra-ocular movements are intact. No nystagmus. There is normal conjunctiva bilaterally. No signs of icterus. Ears, nose, mouth and throat: There are moist mucous membranes and no oral lesions. Neck: The neck is supple, there is no tenderness or JVD. Cardiovascular: There is a regular rate and rhythm. No murmur, rub or gallop is appreciated. Respiratory: Lungs are clear to auscultation, respirations are non-labored, breath sounds are equal. No wheezes, stridor, rales, or rhonchi. Gastrointestinal: Upon inspection there is a large surgical incision over the right upper quadrant. Soft, non-distended, abdomen without masses or organomegaly noted. There is mild RUQ pain to deep palpation, no epigastric pain. There is no rebound or guarding present. No CVA tenderness. Bowel sounds are unremarkable. Musculoskeletal: Normal ROM, no tenderness. Strength 5/5. Sensation intact. Pulses equal bilaterally 2+. Neurological: A&O x 3. CN II-XII intact, There are no obvious motor or sensory deficits. Coordination appears grossly intact. Speech is normal. Skin: Skin is warm and dry and no rashes or lesions are noted. Psychiatric: Cooperative, appropriate mood & affect, normal judgment. Limitations: no limitations Course Vital Signs 04/07/18 16:32 Temperature 98.0 F Pulse Rate 93 Respiratory 18 Rate Blood Pressure 136/84 O2 Sat by Pulse 98 Oximetry Medical Decision Making - Medical Decision Making 27yo female s/p cystectomy on 03/13/2018 presents today for right upper quadrant /right flank pain. Patient appears well, nontoxic. No evidence of jaundice. Patient is tender in the right upper quadrant to palpation. No CVA tenderness. Urinalysis unremarkable. Laboratory studies revealed mild elevation of AST and ALT however upon chart review this is present on 03/15/2018. No acute findings. CT was obtained given differential diagnosis of renal calculi. Negative for renal calculi, there is noted and malleus of the kidney, however these appear chronic. There is no evidence of current infection, including pyelonephritis. No elevation of white blood cell count. I discussed these findings with patient who will follow up with primary care provider for further evaluation. Kidney function including creatinine and BUN are within acceptable limits. At this time because of the Route of dental pain is unclear, I do feel patient is stable for discharge, patient does have a scheduled appointment with her surgeon tomorrow at 2:30 PM for evaluation. Patient states that she does feel couple discharge and outpatient follow-up. Patient was given strict return for worse for any worsening symptoms. Patient is agreeable plan discharge. Patient discharged in stable condition appearing well. Case discussed with Dr Holly who agreed with impression and plan. - Lab Data Result diagrams: 04/07/18 18:47 04/07/18 18:47 Lab Results 04/07/18 04/07/18 04/07/18 Range/Units 18:47 18:47 18:47 WBC 8.7 (3.8-10.6) k/uL RBC 4.79 (3.80-5.40) m/uL Hgb 12.4 (11.4-16.0) gm/dL Hct 37.8 (34.0-46.0) % MCV 78.8 L (80.0-100.0) fL MCH 26.0 (25.0-35.0) pg MCHC 32.9 (31.0-37.0) g/dL RDW 15.0 (11.5-15.5) % Plt Count 300 (150-450) k/uL Neutrophils % 49 % Lymphocytes % 37 % Monocytes % 8 % Eosinophils % 2 % Basophils % 0 % Neutrophils # 4.3 (1.3-7.7) k/uL Lymphocytes # 3.2 (1.0-4.8) k/uL Monocytes # 0.7 (0-1.0) k/uL Eosinophils # 0.2 (0-0.7) k/uL Basophils # 0.0 (0-0.2) k/uL Sodium 142 (137-145) mmol/L Potassium 4.3 (3.5-5.1) mmol/L Chloride 108 H (98-107) mmol/L Carbon Dioxide 26 (22-30) mmol/L Anion Gap 8 mmol/L BUN 16 (7-17) mg/dL Creatinine 0.91 (0.52-1.04) mg/dL Est GFR (CKD-EPI)AfAm >90 (>60 ml/min/1.73 sqM) Est GFR (CKD-EPI)NonAf 87 (>60 ml/min/1.73 sqM) Glucose 88 (74-99) mg/dL Calcium 9.7 (8.4-10.2) mg/dL Total Bilirubin 0.3 (0.2-1.3) mg/dL AST 58 H (14-36) U/L ALT 69 H (9-52) U/L Alkaline Phosphatase 115 (38-126) U/L Total Protein 6.9 (6.3-8.2) g/dL Albumin 3.9 (3.5-5.0) g/dL Amylase 97 (30-110) U/L Lipase 163 (23-300) U/L Urine Color Yellow Urine Appearance Cloudy H (Clear) Urine pH 6.5 (5.0-8.0) Ur Specific [place] 1.019 (1.001-1.035) Urine Protein Trace H (Negative) Urine Glucose (UA) Negative (Negative) Urine Ketones Negative (Negative) Urine Blood Negative (Negative) Urine Nitrite Negative (Negative) Urine Bilirubin Negative (Negative) Urine Urobilinogen <2.0 (<2.0) mg/dL Ur Leukocyte Esterase Negative (Negative) Urine RBC 1 (0-5) /hpf Urine WBC 3 (0-5) /hpf Ur Squamous Epith Cells 7 H (0-4) /hpf Urine Bacteria Occasional H (None) /hpf Urine Mucus Rare H (None) /hpf Disposition Clinical Impression: RUQ pain Disposition: HOME SELF-CARE Condition: Good Instructions: Abdominal Pain (ED) Additional Instructions: Please use medication as discussed. Please follow-up with Dr. Hanson as scheduled for tomorrow at 2:30 PM. Please return to emergency room if the symptoms increase or worsen or for any other concerns. Is patient prescribed a controlled substance at d/c from ED?: No Referrals: Prudence Forrest MD [Primary Care Provider] - 1-2 days Javi Cooley MD [STAFF PHYSICIAN] - 1-2 days Time of Disposition: 19:38
[2018-04-07 19:22] LABS: ALT 69 U/L (9-52); AST 58 U/L (14-36); Albumin 3.9 g/dL (3.5-5.0); Alkaline Phosphatase 115 U/L (38-126); Amylase 97 U/L (30-110); Anion Gap 8 mmol/L; Blood Urea Nitrogen 16 mg/dL (7-17); Calcium 9.7 mg/dL (8.4-10.2); Carbon Dioxide 26 mmol/L (22-30); Chloride 108 mmol/L (98-107); Glucose 88 mg/dL (74-99); Lipase 163 U/L (23-300); Potassium 4.3 mmol/L (3.5-5.1); Sodium 142 mmol/L (137-145); Total Bilirubin 0.3 mg/dL (0.2-1.3); Total Protein 6.9 g/dL (6.3-8.2)
[2018-04-07 19:56] VITALS: BP 137/93; PULSE 87; RESP 19
== END 2018-04-07 19:54 | disposition home or self-care (01) ==
LOC: EC 16:09
DX: R10.11 Right upper quadrant pain (principal); Z87.19 Personal history of other diseases of the digestive system; Z90.49 Acquired absence of other specified parts of digestive tract; Z98.890 Other specified postprocedural states
CPT/HCPCS: 36415; 80053; 82150; 83690; 85025; 81001; 71046; 74176; 99284; 96374; 96361; J1885

== ENCOUNTER 2018-05-16 13:02 | Emergency (ER) | payer OTHER ==
[2018-05-16 13:06] VITALS: BP 159/95; PULSE 86; RESP 20; TEMP 98.9
--- NOTE | 2018-05-16 13:20 | ED ---
Lower Extremity Injury HPI - General Chief Complaint: Extremity Injury, Lower Stated Complaint: Fall,knee injury Time Seen by Provider: 05/16/18 13:09 Source: patient Mode of arrival: ambulatory Limitations: no limitations - History of Present Illness Initial Comments: 27-year-old female with no pertinent past medical history presenting today for chief complaint of right knee pain. Patient states 2 days prior she tripped down 2 stairs landing on her right knee. Patient denies falling hitting head, loss of conciousness, neck or back injury patient denies any injury to the chest or abdomen. Patient states she did hit her left elbow however this has not been bothering her since the fall,She states there is a small superficial bruise however she is able to fully range without difficulty or pain. Patient states that since the fall she noticed mild right knee swelling, a bruise and increased pain with range of motion. Patient is able to fully weight-bear and ambulate. She is able to extend at the right knee. She denies any numbness, tingling, loss sensation, pallor or coolness of the extremity. Patient denied any dislocation. Remaining review of systems negative, patient denies any recent fever, chills, shortness of breath, chest pain, back pain, abdominal pain , nausea or vomiting, numbness or tingling, dysuria or hematuria, constipation or diarrhea, headaches or visual changes, or any other complaints. Upon arrival patient is pleasant, well-appearing. - Related Data Home Medications Medication Instructions Recorded Confirmed Ibuprofen [Motrin Ib] 800 mg PO Q6H PRN 04/07/18 04/07/18 Allergies Allergy/AdvReac Type Severity Reaction Status Date / Time No Known Allergies Allergy Verified 05/16/18 13:05 Review of Systems ROS Statement: Those systems with pertinent positive or pertinent negative responses have been documented in the HPI. ROS Other: All systems not noted in ROS Statement are negative. Past Medical History Past Medical History: Asthma Additional Past Medical History / Comment(s): GALLBLADDER DISORDER History of Any Multi-Drug Resistant Organisms: None Reported Past Surgical History: Appendectomy, Section, Cholecystectomy Additional Past Surgical History / Comment(s): duodenal surgery in childhood Past Anesthesia/Blood Transfusion Reactions: No Reported Reaction Past Psychological History: No Psychological Hx Reported Smoking Status: Never smoker Past Alcohol Use History: None Reported Past Drug Use History: None Reported - Past Family History Mother Family Medical History: No Reported History Brother(s) Family Medical History: No Reported History General Exam - General Exam Comments Initial Comments: General: The patient is awake and alert, in no distress, and does not appear acutely ill. Eye: Pupils are equal, round and reactive to light, extra-ocular movements are intact. No nystagmus. There is normal conjunctiva bilaterally. No signs of icterus. Ears, nose, mouth and throat: There are moist mucous membranes and no oral lesions. Neck: The neck is supple, there is no tenderness or JVD. Cardiovascular: There is a regular rate and rhythm. No murmur, rub or gallop is appreciated. Respiratory: Lungs are clear to auscultation, respirations are non-labored, breath sounds are equal. No wheezes, stridor, rales, or rhonchi. Musculoskeletal: Upon inspection of the knees bilaterally there are equal. There is no sniff Soft tissue swelling or ecchymosis, contusions abrasions or lacerations. Patient is tender to palpation of the knee anteriorly. Patient is able to fully range at the knees bilaterally with full extension and flexion complain of mild discomfort of the right knee. Extensor mechanism intact bilaterally. Strength 5/5 of the upper and lower extremities equal comparison. Including at the right knees.. Sensation intact of the upper and lower extremities equal bilaterally including proximal distal to the right knee. Compartments soft and compressible. No evidence of foot drop. DP pulses equal bilaterally 2+. Capillary refill less than 2 seconds Neurological: A&O x 3. CN II-XII intact, There are no obvious motor or sensory deficits. Coordination appears grossly intact. Speech is normal. Skin: Skin is warm and dry and no rashes or lesions are noted. Psychiatric: Cooperative, appropriate mood & affect, normal judgment. 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 No significant examination findings patient does have mild tenderness. This does not appear out of proportion. Patient neurovascularly intact. Patient was given Toradol which she states helped alleviate symptoms. Patient was instructed to use rest and ice, compression and elevation. In addition take [id number] ibuprofen and Tylenol. This time I do feel patient is stable for discharge I have low suspicion for any ligamentous or tendinous injury at this time given physical exam findings and history. Patient denies any head injury or any other areas of complaints. Patient discharged in stable condition appearing well denied questions at this time. Return parameters were discussed at length the patient who verbalized understanding. Patient was instructed to follow-up with orthopedic surgery if symptoms are persistent. Disposition Clinical Impression: Strain of right knee, Right anterior knee pain Disposition: HOME SELF-CARE Condition: Good Instructions (If sedation given, give patient instructions): Knee Sprain (ED), R.I.C.E. Treatment (ED) Additional Instructions: Please use medication as discussed. Please follow-up with family doctor in the next 2 days. Please return to emergency room if the symptoms increase or worsen or for any other concerns. Is patient prescribed a controlled substance at d/c from ED?: No Referrals: Prudence Forrest MD [Primary Care Provider] - 1-2 days Santos Pritchett DO [Medical Doctor] - 1-2 days Time of Disposition: 13:47
[2018-05-16] MEDS ORDERED: KETOROLAC 60 MG/2 ML VIAL IM STA (13:21)
--- NOTE | 2018-05-16 13:39 | XR ---
EXAMINATION TYPE: XR knee complete RT DATE OF EXAM: 05/16/2018 COMPARISON: None HISTORY: Pain, swelling TECHNIQUE: Three-view right knee FINDINGS: No acute fractures are evident. Soft tissues are normal. No joint effusion is evident. IMPRESSION: 1. Normal three-view Right knee
== END 2018-05-16 14:00 | disposition home or self-care (01) ==
LOC: EC 13:02
DX: S86.811A Strain of other muscle(s) and tendon(s) at lower leg level, right leg, initial encounter (principal); W10.9XXA Fall (on) (from) unspecified stairs and steps, initial encounter
CPT/HCPCS: 96372; 99283

== ENCOUNTER → 2018-09-30 | Outpatient (CLI) | payer OTHER ==
--- NOTE | 2018-09-30 08:34 | US ---
EXAMINATION TYPE: US abdomen complete DATE OF EXAM: 09/30/2018 COMPARISON: ct 2019, us 2018 CLINICAL HISTORY: R74.8 Abnormal levels of other serum enzymes. Large body habitus, hx cholecystectomy 2018 EXAM MEASUREMENTS: Liver Length: 12.4 cm Gallbladder Wall: Surgically absent CBD: 0.4 cm Spleen: 10.9 cm Right Kidney: 6.2 x 3.2 x 2.7 cm Left Kidney: 10.1 x 4.5 x 4.4 cm Pancreas: Obscured by bowel gas Liver: wnl Gallbladder: Surgically absent Evidence for sonographic Keating's sign: No CBD: wnl Spleen: wnl Right Kidney: Lobular contour may represent prior renal scarring. Poor cortical medullary differentia tion and atrophy are seen. Left Kidney: Lobulated contour. Upper IVC: wnl Abd Aorta: wnl The liver is homogenous. The intrahepatic portion of the IVC and proximal abdominal aorta are within normal limits. Common bile duct is unremarkable. The visualized portions of the pancreas are homoge nous. The spleen is unremarkable. Kidneys are symmetric and free of hydronephrosis. No renal lesio ns are seen. IMPRESSION: 1. Lobulated contour of both kidneys is seen with right renal atrophy is noted on the prior CT. Evalu ation for renal mass is markedly suboptimal and dynamic enhanced CT abdomen or MRI would be recommend ed to exclude mass, particularly on the right given the focal lobulated contour laterally in the midp ole. 2. Surgical absence of the gallbladder and partial obscuration the pancreas.
== END | disposition home or self-care (01) ==
LOC: RADUSWWP 07:31
PROVIDERS: ATTEND Family Medicine
DX: N26.1 Atrophy of kidney (terminal) (principal); Z90.49 Acquired absence of other specified parts of digestive tract; Z90.411 Acquired partial absence of pancreas
CPT/HCPCS: 76700

== ENCOUNTER → 2018-12-27 | Outpatient (CLI) | payer OTHER ==
--- NOTE | 2018-12-27 15:04 | CT ---
EXAMINATION TYPE: CT abdomen w con DATE OF EXAM: 12/27/2018 COMPARISON: 04/07/2018 HISTORY: Elevated liver enzymes CT DLP: 1298.5 mGycm Automated exposure control for dose reduction was used. TECHNIQUE: Helical acquisition of images was performed from the lung bases through the top of iliac crest to include entire abdomen. CONTRAST: Performed with Oral Contrast and with IV Contrast, patient injected with 100 mL of Isovue 300. FINDINGS: Lung bases are clear. There is no pleural effusion. Heart size is normal. There is no pericardial eff usion. Liver spleen stomach pancreas appear normal. Bile ducts are not dilated. There are clips from cholecystectomy. There is no adrenal mass. There are multiple areas of cortical thinning in both kidneys and much more severe in the right kidney consistent with scarring and chronic pyelonephritis. There is no hydronep hrosis. There is no retroperitoneal adenopathy. Ureters are not dilated. The noncontrast images show no renal calculus. Appendix is not definitely seen. There is no sign of thickened appendix. There is no bowel obstruction. There is no mesenteric edema. There is no sign of ascites or free air. Lumbar spine is intact. IMPRESSION: CHANGES IN BOTH KIDNEYS CONSISTENT WITH SCARRING AND CHRONIC PYELONEPHRITIS. NO CHANGE COMPARED TO OL D EXAM.
== END | disposition home or self-care (01) ==
LOC: RADCTMAIN 07:33
PROVIDERS: ATTEND Family Medicine
DX: N11.9 Chronic tubulo-interstitial nephritis, unspecified (principal); N28.89 Other specified disorders of kidney and ureter
CPT/HCPCS: 74160; Q9967

== ENCOUNTER → 2019-05-23 | Outpatient (CLI) | payer OTHER ==
--- NOTE | 2019-05-23 12:03 | MR ---
EXAMINATION TYPE: MR knee RT wo con DATE OF EXAM: 05/23/2019 11:44 AM COMPARISON: NONE HISTORY: Right knee pain TECHNIQUE: Multiplanar, multiecho imaging of the right knee is performed without IV contrast. FINDINGS: There is a small joint effusion. Mild degree of bone bruising noted involving the medial femoral condyle. There is more extensive bony bruising involving the lateral femoral condyle and the lateral aspect of tibial plateau as well as t he sulcus terminalis. There is some pseudocyst formation just inferior to the intercondylar spines wi thin the tibia. The posterior cruciate ligament is intact. Anterior cruciate ligament is torn and cannot be positivel y identified. Both menisci appear intact. There is grade 3 strain of the medial collateral ligament. The lateral collateral ligament complexes intact. Iliotibial band inserts normally upon Gerdy's tubercle. The popliteus muscle and tendon are intact. There is moderate swelling in the Hoffa fat space. There is no significant chondromalacia. IMPRESSION: 1. COMPLETE TEAR OF THE ANTERIOR CRUCIATE LIGAMENT WITH ASSOCIATED KISSING CONTUSIONS.
== END | disposition home or self-care (01) ==
LOC: RADMRIMAIN 10:27
PROVIDERS: ATTEND Family Medicine
DX: S83.511D Sprain of anterior cruciate ligament of right knee, subsequent encounter (principal); S80.01XD Contusion of right knee, subsequent encounter

== ENCOUNTER 2020-09-30 | Emergency (ER) | payer OTHER | END 2020-09-30 13:50 | disposition home or self-care (01) ==

== ENCOUNTER 2020-10-27 16:55 | Emergency (ER) | payer OTHER ==
[2020-10-27] MEDS ORDERED: predniSONE 20 MG TAB PO STA (17:18)
[2020-10-27] MEDS ORDERED: IPRATROPIUM-ALBUTEROL 3 ML NEB INHALATION STA ×2 (17:18→18:31)
[2020-10-27] MEDS ORDERED: ASPIRIN 81 MG PO STA (17:20)
[2020-10-27 17:44] LABS: Basophils # (A) 0.1 k/uL (0-0.2); Basophils % (A) 1 %; Eosinophils # (A) 0.4 k/uL (0-0.7); Eosinophils % (A) 4 %; HCT 37.5 % (34.0-46.0); Lymphocytes % (A) 28 %; MCH 24.4 pg (25.0-35.0); MCHC 31.9 g/dL (31.0-37.0); MCV 76.4 fL (80.0-100.0); Mean Platelet Volume 7.8; Microcytosis Slight; Monocytes # (A) 0.6 k/uL (0-1.0); Monocytes % (A) 6 %; Neutrophils # (A) 6.3 k/uL (1.3-7.7); Neutrophils % (A) 59 %; Platelet Count 359 k/uL (150-450); RBC 4.91 m/uL (3.80-5.40); WBC 10.6 k/uL (3.8-10.6)
[2020-10-27 17:50] LABS: HCG,Qualitative Serum Not Detected
[2020-10-27 17:58] LABS: African American GFR (CKD) >90 (>60 ml/min/1.73 sqM); Anion Gap 9 mmol/L; Blood Urea Nitrogen 12 mg/dL (7-17); Calcium 9.3 mg/dL (8.4-10.2); Carbon Dioxide 21 mmol/L (22-30); Chloride 106 mmol/L (98-107); Glucose 126 mg/dL (74-99); INR 0.9 (<1.2); Magnesium 1.9 mg/dL (1.6-2.3); Non-African American GFR(CKD) 89 (>60 ml/min/1.73 sqM); Partial Thromboplastin Time 22.9 sec (22.0-30.0); Potassium 3.6 mmol/L (3.5-5.1); Prothrombin Time 9.7 sec (9.0-12.0); Sodium 136 mmol/L (137-145)
--- NOTE | 2020-10-27 18:07 | XR ---
EXAMINATION TYPE: XR chest 2V DATE OF EXAM: 10/27/2020 COMPARISON: 04/07/2018 HISTORY: Difficulty breathing TECHNIQUE: Frontal and lateral views of the chest are obtained. FINDINGS AND IMPRESSION: No evidence of focal airspace disease, pneumothorax or pleural effusion. Normal cardiomediastinal silhouette noted. No acute osseous abnormality. No significant change since prior.
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
[2020-10-27 19:58] VITALS: BP 159/89; PULSE 92; RESP 18; TEMP 98
== END 2020-10-27 19:58 | disposition home or self-care (01) ==
LOC: EC 16:55
DX: J45.901 Unspecified asthma with (acute) exacerbation (principal)
CPT/HCPCS: 36415; 94640; 93005; 85379; 80048; 83735; 84484; 85025; 85610; 85730; 84703; 71046; 99285; J7512

== ENCOUNTER 2020-10-29 20:41 | Emergency (ER) | payer OTHER ==
[2020-10-29] MEDS ORDERED: IPRATROPIUM-ALBUTEROL 3 ML NEB INHALATION STA (21:01)
[2020-10-29] MEDS ORDERED: SODIUM CHLORIDE 0.9% 1,000 ML IV STA (21:01)
[2020-10-29] MEDS ORDERED: LORazepam 2 MG/ML INJ IV STA (21:02)
--- NOTE | 2020-10-29 21:22 | XR ---
EXAMINATION TYPE: XR chest 2V DATE OF EXAM: 10/29/2020 COMPARISON: 10/27/2020 HISTORY: Chest pain TECHNIQUE: 2 views FINDINGS: Heart and mediastinum are normal. Lungs are clear. Diaphragm is normal. Bony thorax is inta ct. IMPRESSION: Normal chest. No change.
[2020-10-29 21:27] LABS: Basophils # (A) 0.1 k/uL (0-0.2); Basophils % (A) 0 %; Eosinophils % (A) 0 %; HCT 33.4 % (34.0-46.0); HGB 10.8 gm/dL (11.4-16.0); Hypochromasia Slight; Lymphocytes # (A) 2.9 k/uL (1.0-4.8); Lymphocytes % (A) 22 %; MCHC 32.5 g/dL (31.0-37.0); MCV 76.8 fL (80.0-100.0); Microcytosis Slight; Monocytes # (A) 0.8 k/uL (0-1.0); Monocytes % (A) 6 %; Neutrophils # (A) 9.3 k/uL (1.3-7.7); Neutrophils % (A) 70 %; Platelet Count 347 k/uL (150-450); RBC 4.35 m/uL (3.80-5.40); RDW 15.7 % (11.5-15.5); WBC 13.3 k/uL (3.8-10.6)
[2020-10-29 21:32] LABS: ALT 21 U/L (4-34); AST 21 U/L (14-36); African American GFR (CKD) >90 (>60 ml/min/1.73 sqM); Albumin 3.6 g/dL (3.5-5.0); Alkaline Phosphatase 119 U/L (38-126); Anion Gap 9 mmol/L; Blood Urea Nitrogen 13 mg/dL (7-17); Calcium 8.9 mg/dL (8.4-10.2); Carbon Dioxide 18 mmol/L (22-30); Chloride 110 mmol/L (98-107); Glucose 132 mg/dL (74-99); Non-African American GFR(CKD) >90 (>60 ml/min/1.73 sqM); Potassium 3.7 mmol/L (3.5-5.1); Sodium 137 mmol/L (137-145); Total Bilirubin <0.1 mg/dL (0.2-1.3); Total Protein 6.3 g/dL (6.3-8.2)
[2020-10-29 21:41] LABS: INR 0.9 (<1.2); Prothrombin Time 9.7 sec (9.0-12.0)
[2020-10-29 21:44] LABS: Partial Thromboplastin Time 21.3 sec (22.0-30.0)
--- NOTE | 2020-10-29 22:10 | ED ---
General Adult HPI - General Chief complaint: Shortness of Breath Stated complaint: BRANDEN Time Seen by Provider: 10/29/20 20:51 Source: patient, EMS Mode of arrival: EMS Limitations: no limitations - History of Present Illness Initial comments: 29-year-old female with history of anxiety, asthma presenting to emergency Department with a chief complaint of shortness of breath. Patient reports she was here 2 days ago and she is experiencing similar symptoms. Patient reports she was eating until when she felt sudden onset of shortness of breath and some chest tightness. States she also felt a flushing sensation and some paresthesias in her arms that have since resolved. She reports she contacted the ambulance and was brought here by EMS. States she was also here 2 days ago for similar occurrence and was discharged after treatment for asthma exac erbation. States she has been taking the steroids at home as directed. She denies any visual changes or headaches nausea vomiting diarrhea. - Related Data Previous Rx's Medication Instructions Recorded Albuterol Inhaler [Ventolin Hfa 1 puff INHALATION RT-QID #1 inhaler 10/27/20 Inhaler] predniSONE [Deltasone] 40 mg PO DAILY 5 Days #10 tab 10/27/20 ALPRAZolam [Xanax] 0.5 mg PO TID PRN #9 tablet 10/29/20 Allergies Allergy/AdvReac Type Severity Reaction Status Date / Time No Known Allergies Allergy Verified 10/29/20 21:23 Review of Systems ROS Statement: Those systems with pertinent positive or pertinent negative responses have been documented in the HPI. ROS Other: All systems not noted in ROS Statement are negative. Past Medical History Past Medical History: Asthma Additional Past Medical History / Comment(s): GALLBLADDER DISORDER History of Any Multi-Drug Resistant Organisms: None Reported Past Surgical History: Appendectomy, Section, Cholecystectomy Additional Past Surgical History / Comment(s): duodenal surgery in childhood Past Anesthesia/Blood Transfusion Reactions: No Reported Reaction Past Psychological History: No Psychological Hx Reported Smoking Status: Never smoker Past Alcohol Use History: None Reported Past Drug Use History: None Reported - Past Family History Mother Family Medical History: No Reported History Brother(s) Family Medical History: No Reported History General Exam Limitations: no limitations General appearance: alert, in no apparent distress, anxious, obese Head exam: Present: atraumatic, normocephalic, normal inspection Eye exam: Present: normal appearance, PERRL, EOMI Pupils: Present: normal accommodation ENT exam: Present: normal exam, normal oropharynx, mucous membranes moist Neck exam: Present: normal inspection, full ROM. Absent: tenderness, lymphadenopathy Respiratory exam: Present: normal lung sounds bilaterally. Absent: respiratory distress, wheezes, rales, rhonchi, stridor, chest wall tenderness, accessory muscle use Cardiovascular Exam: Present: regular rate, normal rhythm, normal heart sounds. Absent: systolic murmur GI/Abdominal exam: Present: soft. Absent: distended, tenderness Extremities exam: Present: normal inspection, full ROM, normal capillary refill. Absent: tenderness, pedal edema, joint swelling Back exam: Present: normal inspection, full ROM. Absent: tenderness, CVA tenderness (R), CVA tenderness (L) Neurological exam: Present: alert, oriented X3, CN II-XII intact, normal gait Psychiatric exam: Present: normal affect, normal mood, anxious Skin exam: Present: warm, dry, intact, normal color Course Vital Signs 10/29/20 10/29/20 10/29/20 20:43 20:54 21:44 Temperature 98.0 F Pulse Rate 76 74 Respiratory 18 18 18 Rate Blood Pressure 164/98 152/110 O2 Sat by Pulse 100 100 Oximetry 10/29/20 10/29/20 10/29/20 22:17 22:39 23:19 Temperature Pulse Rate 80 88 104 H Respiratory 18 Rate Blood Pressure 136/81 O2 Sat by Pulse 98 Oximetry 10/29/20 23:40 Temperature 98.1 F Pulse Rate 100 Respiratory 20 Rate Blood Pressure 138/90 O2 Sat by Pulse 100 Oximetry Medical Decision Making - Medical Decision Making 29-year-old female with history of anxiety, asthma presenting to emergency Department with a chief complaint of shortness of breath. On physical examination, patient is quite anxious and is hyperventilating. She is tachycardic as well. Patient was given a breathing treatment and Ativan which helped improve her symptoms. Lungs are clear to auscultation. No signs of wheezing. Oxygen saturation is 100% on room air. I do not suspect asthma exacerbation to because of her symptoms. Laboratory work obtained showed a mild leukocytosis. She'll had a negative d-dimer, however she was here 2 days ago and she continued to complain of the same chest pain. So CT was obtained to rule out a pulmonary embolism. Given the results were negative for PE. I suspect the patient's symptoms are secondary to her acute anxiety. Her brother and mother also agreed that she has panic attacks and they appear to be rather similar. Patient does not have any homicidal, suicidal thoughts or ideations. I will give the patient Xanax for the next 3 days until she is able to follow with the primary care and then go to a therapist. Strict return parameters were thoroughly discussed the patient was understanding and agreeable. Case discussed with physician. - Lab Data Result diagrams: 10/29/20 21:04 10/29/20 21:04 Lab Results 10/29/20 10/29/20 10/29/20 Range/Units 21:04 21:04 21:04 WBC 13.3 H (3.8-10.6) k/uL RBC 4.35 (3.80-5.40) m/uL Hgb 10.8 L (11.4-16.0) gm/dL Hct 33.4 L (34.0-46.0) % MCV 76.8 L (80.0-100.0) fL MCH 25.0 (25.0-35.0) pg MCHC 32.5 (31.0-37.0) g/dL RDW 15.7 H (11.5-15.5) % Plt Count 347 (150-450) k/uL MPV 7.0 Neutrophils % 70 % Lymphocytes % 22 % Monocytes % 6 % Eosinophils % 0 % Basophils % 0 % Neutrophils # 9.3 H (1.3-7.7) k/uL Lymphocytes # 2.9 (1.0-4.8) k/uL Monocytes # 0.8 (0-1.0) k/uL Eosinophils # 0.0 (0-0.7) k/uL Basophils # 0.1 (0-0.2) k/uL Hypochromasia Slight Microcytosis Slight PT 9.7 (9.0-12.0) sec INR 0.9 (<1.2) APTT 21.3 L (22.0-30.0) sec D-Dimer 0.20 (<0.60) mg/L FEU Sodium 137 (137-145) mmol/L Potassium 3.7 (3.5-5.1) mmol/L Chloride 110 H (98-107) mmol/L Carbon Dioxide 18 L (22-30) mmol/L Anion Gap 9 mmol/L BUN 13 (7-17) mg/dL Creatinine 0.78 (0.52-1.04) mg/dL Est GFR (CKD-EPI)AfAm >90 (>60 ml/min/1.73 sqM) Est GFR (CKD-EPI)NonAf >90 (>60 ml/min/1.73 sqM) Glucose 132 H (74-99) mg/dL Calcium 8.9 (8.4-10.2) mg/dL Total Bilirubin <0.1 L (0.2-1.3) mg/dL AST 21 (14-36) U/L ALT 21 (4-34) U/L Alkaline Phosphatase 119 (38-126) U/L Troponin I (0.000-0.034) ng/mL Total Protein 6.3 (6.3-8.2) g/dL Albumin 3.6 (3.5-5.0) g/dL 10/29/20 Range/Units 21:04 WBC (3.8-10.6) k/uL RBC (3.80-5.40) m/uL Hgb (11.4-16.0) gm/dL Hct (34.0-46.0) % MCV (80.0-100.0) fL MCH (25.0-35.0) pg MCHC (31.0-37.0) g/dL RDW (11.5-15.5) % Plt Count (150-450) k/uL MPV Neutrophils % % Lymphocytes % % Monocytes % % Eosinophils % % Basophils % % Neutrophils # (1.3-7.7) k/uL Lymphocytes # (1.0-4.8) k/uL Monocytes # (0-1.0) k/uL Eosinophils # (0-0.7) k/uL Basophils # (0-0.2) k/uL Hypochromasia Microcytosis PT (9.0-12.0) sec INR (<1.2) APTT (22.0-30.0) sec D-Dimer (<0.60) mg/L FEU Sodium (137-145) mmol/L Potassium (3.5-5.1) mmol/L Chloride (98-107) mmol/L Carbon Dioxide (22-30) mmol/L Anion Gap mmol/L BUN (7-17) mg/dL Creatinine (0.52-1.04) mg/dL Est GFR (CKD-EPI)AfAm (>60 ml/min/1.73 sqM) Est GFR (CKD-EPI)NonAf (>60 ml/min/1.73 sqM) Glucose (74-99) mg/dL Calcium (8.4-10.2) mg/dL Total Bilirubin (0.2-1.3) mg/dL AST (14-36) U/L ALT (4-34) U/L Alkaline Phosphatase (38-126) U/L Troponin I <0.012 (0.000-0.034) ng/mL Total Protein (6.3-8.2) g/dL Albumin (3.5-5.0) g/dL Disposition Clinical Impression: Acute anxiety Disposition: HOME SELF-CARE Condition: Stable Instructions (If sedation given, give patient instructions): Anxiety (ED) Additional Instructions: Please return to the Emergency Department if symptoms worsen or any other concerns. Follow up with a psychiatrist. Take prescribed medication as directed. Prescriptions: ALPRAZolam [Xanax] 0.5 mg PO TID PRN #9 tablet PRN Reason: Anxiety Is patient prescribed a controlled substance at d/c from ED?: Yes If prescribed controlled substance>3 days was MAPS reviewed?: Prescribed <3 Days Referrals: Prudence Forrest MD [Primary Care Provider] - 1-2 days Time of Disposition: 23:23
--- NOTE | 2020-10-29 23:20 | CT ---
EXAMINATION TYPE: CT chest angio for PE DATE OF EXAM: 10/29/2020 COMPARISON: None HISTORY: sob and chest pain CT DLP: 526.8 mGycm Automated exposure control for dose reduction was used. CONTRAST: Performed with IV Contrast, patient injected with 60 mL of Isovue 370. Images obtained from the thoracic inlet to the diaphragm with IV contrast. There are 3-D post process ed images. The lungs are clear of consolidation. There is no pleural effusion. There is no evidence of a pulmona ry mass. There is no pericardial effusion. Heart appears borderline enlarged. There is no evidence of filling defect in the pulmonary arteries. There are no hilar masses. There is no mediastinal adenopathy. Thoracic aorta is intact. There is no aneurysm. The ascending aorta measu res 3.4 cm. The bony thorax is intact. IMPRESSION: Negative exam. No evidence of pulmonary embolism.
[2020-10-29 23:42] VITALS: BP 138/90; PULSE 100; RESP 20; TEMP 98.1
== END 2020-10-29 23:42 | disposition home or self-care (01) ==
LOC: EC 20:41
DX: F41.9 Anxiety disorder, unspecified (principal); R06.02 Shortness of breath; R07.89 Other chest pain; J45.909 Unspecified asthma, uncomplicated
CPT/HCPCS: 36415; 94640; 93005; 85379; 80053; 84484; 85025; 85610; 85730; 71046; 71275; 99285; 96374; 96361; J2060; Q9967

== ENCOUNTER → 2020-12-06 | Outpatient (CLI) | payer OTHER | END | disposition home or self-care (01) | LOC: CPPFTMAIN 08:46 | PROVIDERS: ATTEND Family Medicine | DX: R06.02 Shortness of breath (principal) | CPT/HCPCS: 94060; 94726; 94729 ==

== ENCOUNTER → 2021-02-24 | Outpatient (CLI) | payer OTHER ==
[2021-02-24 17:08] LABS: HCT 35.8 % (34.0-46.0); HGB 11.5 gm/dL (11.4-16.0); Hypochromasia Slight; MCH 24.3 pg (25.0-35.0); MCV 75.8 fL (80.0-100.0); Mean Platelet Volume 7.6; Microcytosis Slight; Platelet Count 299 k/uL (150-450); RBC 4.73 m/uL (3.80-5.40); RDW 14.7 % (11.5-15.5); WBC 8.5 k/uL (3.8-10.6)
[2021-02-24 17:21] LABS: African American GFR (CKD) >90 (>60 ml/min/1.73 sqM); Anion Gap 8 mmol/L; Blood Urea Nitrogen 15 mg/dL (7-17); Carbon Dioxide 25 mmol/L (22-30); Chloride 106 mmol/L (98-107); Non-African American GFR(CKD) 87 (>60 ml/min/1.73 sqM); Potassium 4.2 mmol/L (3.5-5.1); Sodium 139 mmol/L (137-145)
== END | disposition home or self-care (01) ==
LOC: LABPAT 14:30
PROVIDERS: ATTEND Internal Medicine Cardiovascular Disease
DX: Z01.812 Encounter for preprocedural laboratory examination (principal); I42.0 Dilated cardiomyopathy
CPT/HCPCS: 36415; 80051; 82565; 84520; 85027

== ENCOUNTER 2021-03-06 09:07 | Day surgery (SDC) | payer OTHER ==
[2021-03-02 11:34] VITALS: BMI 39.9
[~2021-03-06 09:07] MED LIST changes: +ALPRAZolam 0.25 MG TAB PO PRN; +ALPRAZolam 0.5 MG TAB PO PRN; +ASPIRIN 325 MG TAB PO STA; +ATORVASTATIN 80 MG TAB PO STA; -DEXAMETHASONE SOD PHOSPHATE 10 MG/ML 1 ML VIAL IV ONE; -HEPARIN SODIUM,PORCINE 5,000 UNIT/ML 1 ML VIAL SQ ONE; -LIDOCAINE 1% 20 ML VIAL (10MG/ML) FOR IV START INTRADERMA PRN; -MIDAZOLAM (PF) 2 MG/2 ML VIAL IV PRN; +NITROGLYCERIN SL TABS 0.4 MG TAB SUBLINGUAL PRN; -ONDANSETRON 4 MG/2 ML VIAL IVP ONE; +SODIUM CHLORIDE 0.9% 1,000 ML in EMPTY BAG 1 BAG IV SCH; -ceFAZolin IN SWFI 2 GM/20 ML SYRINGE IVP ONE; -fentaNYL (PF) 50 MCG/ML 2 ML AMP IV PRN
[2021-03-06] MEDS ORDERED: SODIUM CHLORIDE 0.9% 1,000 ML IV ONE (09:52)
[2021-03-06 10:02] VITALS: RESP 16; TEMP 98.8
[2021-03-06] MEDS ORDERED: HEPARIN SODIUM 1,000 UN/ML (10ML VL) ONE (10:24)
[2021-03-06] MEDS ORDERED: VERAPAMIL 2.5 MG/ML 2 ML AMP ONE (10:24)
[2021-03-06] MEDS ORDERED: LIDOCAINE 1% INJ 10MG/ML (20 ML MDV) ONE (10:24)
[2021-03-06] MEDS: MIDAZOLAM 2 MG/2 ML VIAL IV ONE ×2 (10:39→10:57)
[2021-03-06] MEDS: fentaNYL (PF) 50 MCG/ML 5 ML AMP IV ONE ×2 (10:39→10:57)
[2021-03-06] MEDS ORDERED: LIDOCAINE 1% INJ 10MG/ML (20 ML MDV) SQ ONE (10:43)
[2021-03-06] MEDS ORDERED: VERAPAMIL SYRINGE (5 MG/10 ML) INTRAARTER ONE ×2 (10:45→10:54)
[2021-03-06] MEDS ORDERED: HEPARIN SODIUM 1,000 UN/ML (10ML VL) IV ONE (10:47)
[2021-03-06] MEDS ORDERED: IOPAMIDOL-370 125ML BTL INJ ONE (11:08)
[2021-03-06] MEDS ORDERED: HYDROmorphone 0.5 MG/0.5 ML SYRINGE IVP STA (11:30)
[2021-03-06] MEDS ORDERED: NITROGLYCERIN OINT 1 INCH/GM PACKET TOPICAL ONE (11:33)
[2021-03-06] MEDS ORDERED: NITROGLYCERIN OINT 1 INCH/GM PACKET TOPICAL STA (11:40)
[2021-03-06] MEDS ORDERED: RX INFO: IV CONTRAST WAS GIVEN 1 EACH MISC MISCELLANE PRN (12:34)
[2021-03-06] MEDS ORDERED: SODIUM CHLORIDE 0.9% 1,000 ML IV SCH (12:45)
--- NOTE | 2021-03-06 14:16 | CC ---
CARDIAC CATHETERIZATION REPORT INDICATION: New-onset cardiomyopathy. PROCEDURE NOTE: After obtaining informed consent, left heart catheterization and coronary angiogram were performed via the right radial artery using a size 4 right Guy catheter and size 3.5 left Guy catheter. Left ventricular pressures were obtained by the left Guy. Patient tolerated the procedure well without any obvious immediate complications. Patient received moderate conscious sedation. Total sedation time was 26 minutes. The right radial artery access was obtained using Seldinger technique. Local and IV sedation was given. Under fluoroscopic guidance, guidewire and subsequently catheters were manipulated into the ascending aorta and catheters were exchanged in the ascending aorta. Patient received 5 mg of verapamil initially and I repeated a second dose of 5 mg of verapamil to deal with vasospasm. Patient also received 4000 units of intravenous heparin and completed the procedure uneventfully. A TR band was used for hemostasis using the standard protocol, and 100% pulse ox was documented. FINDINGS: HEMODYNAMICS: Left ventricular end-diastolic pressure is 18 to 20 mm. There is no significant gradient across the aortic valve. LEFT VENTRICULOGRAM: Left ventriculogram was not performed. ANGIOGRAPHIC DATA: Left main coronary artery: Left main coronary artery is a normal-sized vessel and is free of stenosis. It divides into left anterior descending coronary artery and circumflex coronary artery. Circumflex coronary artery is a small nondominant vessel and is free of significant disease. LAD and its branches are free of significant disease. Right coronary artery is a large dominant vessel and is without any stenosis. CONCLUSIONS: 1. Normal coronary arteries. 2. Elevated left ventricular end-diastolic pressure. 3. Nonischemic cardiomyopathy. PLAN: Patient will be treated with optimal medical therapy and we will repeat an echo on her [address] MMODL / IJN: [id number] /
[2021-03-06 15:06] VITALS: PULSE 77
[2021-03-06 15:17] VITALS: BP 117/53
== END 2021-03-06 15:52 | disposition home or self-care (01) ==
LOC: CATHCVL 09:07
PROVIDERS: ATTEND Internal Medicine Cardiovascular Disease
DX: I42.0 Dilated cardiomyopathy (principal); Z20.822 Contact with and (suspected) exposure to COVID-19; Z79.899 Other long term (current) drug therapy
CPT/HCPCS: 93458; 81025; 87635; C1894; C1769; J2250; J2001; J3010; J1644; J1170; Q9967

== ENCOUNTER 2021-05-29 10:20 | Emergency (ER) | payer OTHER ==
[2021-05-29 10:27] VITALS: TEMP 97.6
[2021-05-29] MEDS ORDERED: KETOROLAC 15 MG/ML 1 ML VIAL IM STA (10:45)
--- NOTE | 2021-05-29 10:58 | XR ---
Left shoulder HISTORY: Pain 3 views of the left shoulder Bone mineralization, joint spaces and alignment are maintained. Distal acromion is downturned. Left l audrey apex as visualized is normal. No fracture or dislocation. IMPRESSION: Correlate for possible impingement. Shoulder MRI may be of benefit.
--- NOTE | 2021-05-29 10:58 | ED ---
Upper Extremity HPI - General Chief Complaint: Extremity Injury, Upper Stated Complaint: Lt shoulder pain Time Seen by Provider: 05/29/21 10:29 Source: patient, RN notes reviewed Mode of arrival: ambulatory Limitations: no limitations - History of Present Illness Initial Comments: This is a 30-year-old female who presents to the emergency department for 2 weeks of left shoulder pain. The pain radiates up into the side of her left neck, and down into her elbow. Most of the pain is in the anterior aspect of the shoulder. Denies any known injury. States that the pain occurs intermittently, so she is unsure if is worse in the morning or at night. Denies any rashes or swelling. She has tried using a heat pack, Tylenol, and Motrin, without any relief. 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 This pain is significantly impacting her ability to work. Onset/Timin -: week(s) Worsens With: movement of extremity - Related Data Home Medications Medication Instructions Recorded Confirmed Losartan Potassium [Cozaar] 25 mg PO DAILY 03/02/21 05/29/21 Metoprolol Succinate (ER) [Toprol 25 mg PO DAILY 03/02/21 05/29/21 Xl] Furosemide [Lasix] 20 mg PO DAILY 05/29/21 05/29/21 Loratadine [Claritin] 10 mg PO DAILY 05/29/21 05/29/21 Potassium Chloride ER [K-Dur 10] 10 meq PO DAILY 05/29/21 05/29/21 Previous Rx's Medication Instructions Recorded methylPREDNISolone Dose Pack 4 mg PO DIRECTED #1 packet 05/29/21 [Medrol Dose Pack] Allergies Allergy/AdvReac Type Severity Reaction Status Date / Time No Known Allergies Allergy Verified 05/29/21 11:17 Review of Systems ROS Statement: Those systems with pertinent positive or pertinent negative responses have been documented in the HPI. ROS Other: All systems not noted in ROS Statement are negative. Constitutional: Denies: fever, chills ENT: Denies: ear pain, throat pain Respiratory: Denies: cough, dyspnea Cardiovascular: Denies: chest pain, palpitations Gastrointestinal: Denies: abdominal pain, nausea, vomiting, diarrhea Musculoskeletal: Reports: back pain, other (left shoulder pain) Skin: Denies: rash, lesions Neurological: Denies: headache Past Medical History Past Medical History: Asthma Additional Past Medical History / Comment(s): GALLBLADDER DISORDER History of Any Multi-Drug Resistant Organisms: None Reported Past Surgical History: Appendectomy, Section, Cholecystectomy Additional Past Surgical History / Comment(s): duodenal surgery in childhood Past Anesthesia/Blood Transfusion Reactions: No Reported Reaction Past Psychological History: No Psychological Hx Reported Smoking Status: Never smoker Past Alcohol Use History: None Reported Past Drug Use History: None Reported - Past Family History Mother Family Medical History: No Reported History Brother(s) Family Medical History: No Reported History General Exam Limitations: no limitations General appearance: alert, in distress Head exam: Present: atraumatic, normocephalic, normal inspection Respiratory exam: Present: normal lung sounds bilaterally. Absent: respiratory distress, wheezes, rales, rhonchi, stridor Cardiovascular Exam: Present: regular rate, normal rhythm, normal heart sounds. Absent: systolic murmur, diastolic murmur, rubs, gallop, clicks Left Shoulder Exam: Present: normal inspection, tenderness over AC joint. Absent: full ROM (Unable to lift arm past 90 degrees due to pain), swelling, abrasion, laceration, ecchymosis, deformity, crepitus, dislocation, erythema Upper Arm exam: Present: normal inspection. Absent: tenderness, swelling, ab rasion, laceration, ecchymosis, deformity Elbow exam: Present: normal inspection. Absent: tenderness, swelling, laceration, ecchymosis, deformity, crepitus, dislocation Forearm Wrist exam: Present: normal inspection Hand Wrist exam: Present: normal inspection Vascular: Present: normal capillary refill. Absent: vascular compromise, Pallo Neurological exam: Present: alert, oriented X3, CN II-XII intact Psychiatric exam: Present: normal affect, normal mood Skin exam: Present: warm, dry, intact, normal color. Absent: rash Course Vital Signs 05/29/21 05/29/21 10:25 11:16 Temperature 97.6 F Pulse Rate 94 79 Respiratory 18 16 Rate Blood Pressure 150/90 120/77 O2 Sat by Pulse 100 99 Oximetry Medical Decision Making - Medical Decision Making This is a 30-year-old female who presents to the emergency department for left shoulder pain. X-ray obtained, revealing impingement syndrome. This is likely related to the patient's overuse at work. Toradol was administered in the ED, with no relief. Patient given a starter pack for Tylenol No. 3, and a prescription for a Medrol Dose [place]. Referral placed to orthopedics. Continue with Tylenol and heat for pain relief, NSAIDS can be used as well, however they should not be used in combination with the Medrol Dosepak. Return precautions reviewed in depth, the patient is instructed to return to the emergency department if symptoms worsen or do not improve. Patient verbalized understanding. This case was discussed in detail with the attending ED physician. Presentation, findings, and treatment plan discussed in detail as well. Disposition Clinical Impression: Impingement syndrome, shoulder, left Disposition: HOME SELF-CARE Instructions (If sedation given, give patient instructions): Shoulder Impingement Syndrome (ED) Additional Instructions: Return to the emergency department if symptoms worsen or do not improve. Make an appointment with the orthopedic provider as scheduled on your discharge paperwork for further evaluation. Prescriptions: methylPREDNISolone Dose Pack [Medrol Dose Pack] 4 mg PO DIRECTED #1 packet Is patient prescribed a controlled substance at d/c from ED?: No Referrals: Prudence Forrest MD [Primary Care Provider] - 1-2 days Davi Diehl PAC [PHYSICIAN PROPULSION MOTOR AND GENERATOR REPAIRER] - 1-2 days
[2021-05-29 11:18] VITALS: BP 120/77; PULSE 79; RESP 16
[2021-05-29] MEDS ORDERED: ACET/COD 300 MG/30 MG STARTER PACK 6 TAB BTL PO STA (12:00)
== END 2021-05-29 12:10 | disposition home or self-care (01) ==
LOC: EC 10:20
DX: M75.42 Impingement syndrome of left shoulder (principal); J45.909 Unspecified asthma, uncomplicated
CPT/HCPCS: 73030; 99283; 96372; J1885

== ENCOUNTER → 2021-06-08 | Outpatient (CLI) | payer OTHER ==
[2021-06-08 18:03] LABS: African American GFR (CKD) 100.1 (60.0-200.0); Anion Gap 12.4 mmol/L (10.00-18.00); BUN/Creat Ratio 21.22 Ratio (12.00-20.00); Blood Urea Nitrogen 19.1 mg/dL (9.0-27.0); Calcium 8.9 mg/dL (8.7-10.3); Carbon Dioxide 24.6 mmol/L (20.0-27.5); Non-African American GFR(CKD) 86.4 (60.0-200.0); Potassium 3.9 mmol/L (3.5-5.5)
== END | disposition home or self-care (01) ==
LOC: LABWHC1 08:34
PROVIDERS: ATTEND Internal Medicine Cardiovascular Disease
DX: Z00.00 Encounter for general adult medical examination without abnormal findings (principal)
CPT/HCPCS: 36415; 80048; 83880

== ENCOUNTER 2021-06-21 08:25 | Emergency (ER) | payer OTHER ==
[2021-06-21 08:27] VITALS: TEMP 98.4
[2021-06-21] MEDS ORDERED: HYDROcodone/APAP 5-325MG 1 EACH TAB PO STA (08:51)
[2021-06-21] MEDS ORDERED: CYCLOBENZAPRINE 10 MG TAB PO STA (08:51)
[2021-06-21] MEDS ORDERED: ACET/COD 300 MG/30 MG STARTER PACK 6 TAB BTL PO STA (08:52)
--- NOTE | 2021-06-21 08:55 | ED ---
Upper Extremity HPI - General Chief Complaint: Extremity Injury, Upper Stated Complaint: Lt shoulder pain Time Seen by Provider: 06/21/21 08:32 Source: patient, RN notes reviewed Mode of arrival: ambulatory Limitations: no limitations - History of Present Illness Initial Comments: This a 30-year-old female presents emergency Department with chief complaint of left shoulder pain. Patient states pain started approximately one month ago and has progressively worsened. She feels pain primarily in her trapezius. Patient states that it is worse with movement better rest radiates towards her neck, the left arm. Patient denies any paresthesias. 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 - Related Data Home Medications Medication Instructions Recorded Confirmed Losartan Potassium [Cozaar] 25 mg PO DAILY 03/02/21 05/29/21 Metoprolol Succinate (ER) [Toprol 25 mg PO DAILY 03/02/21 05/29/21 Xl] Furosemide [Lasix] 20 mg PO DAILY 05/29/21 05/29/21 Loratadine [Claritin] 10 mg PO DAILY 05/29/21 05/29/21 Potassium Chloride ER [K-Dur 10] 10 meq PO DAILY 05/29/21 05/29/21 Previous Rx's Medication Instructions Recorded methylPREDNISolone Dose Pack 4 mg PO DIRECTED #1 packet 05/29/21 [Medrol Dose Pack] Cyclobenzaprine [Flexeril] 10 mg PO TID PRN #15 tab 06/21/21 Ibuprofen [Motrin] 600 mg PO Q8HR PRN #30 tab 06/21/21 Allergies Allergy/AdvReac Type Severity Reaction Status Date / Time No Known Allergies Allergy Verified 06/21/21 08:27 Review of Systems ROS Statement: Those systems with pertinent positive or pertinent negative responses have been documented in the HPI. ROS Other: All systems not noted in ROS Statement are negative. Past Medical History Past Medical History: Asthma Additional Past Medical History / Comment(s): GALLBLADDER DISORDER History of Any Multi-Drug Resistant Organisms: None Reported Past Surgical History: Appendectomy, Section, Cholecystectomy Additional Past Surgical History / Comment(s): duodenal surgery in childhood Past Anesthesia/Blood Transfusion Reactions: No Reported Reaction Past Psychological History: No Psychological Hx Reported Smoking Status: Never smoker Past Alcohol Use History: None Reported Past Drug Use History: None Reported - Past Family History Mother Family Medical History: No Reported History Brother(s) Family Medical History: No Reported History General Exam Limitations: no limitations General appearance: alert, in no apparent distress Head exam: Present: atraumatic, normocephalic, normal inspection Neck exam: Present: normal inspection, tenderness (Tenderness over the left trapezius), full ROM. Absent: meningismus, lymphadenopathy Respiratory exam: Present: normal lung sounds bilaterally. Absent: respiratory distress, wheezes, rales, rhonchi, stridor Cardiovascular Exam: Present: regular rate, normal rhythm, normal heart sounds. Absent: systolic murmur, diastolic murmur, rubs, gallop, clicks Extremities exam: Present: other (Pain with range of motion left shoulder, left shoulder tenderness primarily on the posterior aspect, neurovascular intact no discoloration) Back exam: Present: full ROM. Absent: tenderness Neurological exam: Present: alert, oriented X3, CN II-XII intact Course Vital Signs 06/21/21 08:25 Temperature 98.4 F Pulse Rate 98 Respiratory 18 Rate Blood Pressure 155/88 O2 Sat by Pulse 99 Oximetry Medical Decision Making - Medical Decision Making Patient has left trapezius muscle strain, spasms noted patient may have left shoulder also deficiency versus impingement syndrome patient advised to follow- up with PCP, orthopedics for further evaluation, physical therapy. Disposition Clinical Impression: Trapezius muscle spasm, Left shoulder pain Disposition: HOME SELF-CARE Condition: Stable Instructions (If sedation given, give patient instructions): Shoulder Sprain (ED) Additional Instructions: Please return to the Emergency Department if symptoms worsen or any other concerns. Prescriptions: Cyclobenzaprine [Flexeril] 10 mg PO TID PRN #15 tab PRN Reason: Muscle Spasm Ibuprofen [Motrin] 600 mg PO Q8HR PRN #30 tab PRN Reason: Pain Is patient prescribed a controlled substance at d/c from ED?: No Referrals: Prudence Forrest MD [Primary Care Provider] - 1-2 days Shay Keating MD [STAFF PHYSICIAN] - 1-2 days Time of Disposition: 08:55
[2021-06-21 09:13] VITALS: BP 134/84; PULSE 70; RESP 16
== END 2021-06-21 09:13 | disposition home or self-care (01) ==
LOC: EC 08:25
DX: M25.512 Pain in left shoulder (principal); M62.838 Other muscle spasm; J45.909 Unspecified asthma, uncomplicated
CPT/HCPCS: 99283

== ENCOUNTER → 2021-07-14 | Outpatient (CLI) | payer OTHER ==
--- NOTE | 2021-07-14 23:08 | MR ---
EXAMINATION TYPE: MR shoulder LT wo con DATE OF EXAM: 07/14/2021 COMPARISON: None HISTORY: Left shoulder pain for 2 months Multiplanar multiecho imaging of the left shoulder without contrast. The glenoid eugene appear intact. Biceps tendon is intact. There are small shoulder joint effusion. Th e subscapularis tendon appears intact. The AC joint appears normal. No subacromial impingement. The supraspinatus tendon appears intact. The re is no retraction. No evidence of a fracture. The infraspinatus tendon is intact. IMPRESSION: No evidence of rotator cuff tear. Small shoulder joint effusion suggestive of mild synovitis.
== END | disposition home or self-care (01) ==
LOC: RADMRIMAIN 20:47
PROVIDERS: ATTEND Family Medicine
DX: M25.512 Pain in left shoulder (principal); G89.29 Other chronic pain

== ENCOUNTER → 2021-11-16 | Outpatient (CLI) | payer OTHER ==
--- NOTE | 2021-11-17 04:51 | MR ---
EXAMINATION TYPE: MR cervical spine wo con DATE OF EXAM: 11/16/2021 COMPARISON: None HISTORY: Neck pain, left shoulder pain and weakness Multiplanar multiecho imaging of the cervical spine with no contrast. The cervical vertebra have normal alignment. Disc spaces are fairly normal. No compression fracture. There is minimal posterior disc bulging at C5-6 and C6-7. No spinal stenosis. There is developmentall y adequate spinal canal. Cervical spinal cord has normal signal pattern. No edema. No cervical parasp inal mass. IMPRESSION: Minimal disc bulging at C5-6 and C6-7. No fracture. No spinal stenosis.
== END | disposition home or self-care (01) ==
LOC: RADMRIMAIN 15:29
PROVIDERS: ATTEND Orthopaedic Surgery
DX: M25.512 Pain in left shoulder (principal); M54.12 Radiculopathy, cervical region
CPT/HCPCS: 72141

== ENCOUNTER → 2021-12-04 | Outpatient (CLI) | payer OTHER ==
[2021-12-04 20:29] LABS: African American GFR (CKD) 88.2 (60.0-200.0); Anion Gap 14.2 mmol/L (10.00-18.00); BUN/Creat Ratio 12.4 Ratio (12.00-20.00); Blood Urea Nitrogen 12.4 mg/dL (9.0-27.0); Calcium 9.8 mg/dL (8.7-10.3); Carbon Dioxide 21.8 mmol/L (20.0-27.5); Non-African American GFR(CKD) 76.1 (60.0-200.0); Potassium 4.1 mmol/L (3.5-5.5)
== END | disposition home or self-care (01) ==
LOC: LABWHC1 12:01
PROVIDERS: ATTEND Internal Medicine Cardiovascular Disease
DX: I50.22 Chronic systolic (congestive) heart failure (principal)
CPT/HCPCS: 36415; 80048; 83880

== ENCOUNTER 2022-06-14 09:07 | Day surgery (SDC) | payer OTHER ==
[2022-06-12 10:21] VITALS: BMI 43.2
--- NOTE | 2022-06-14 07:19 | HP ---
HISTORY AND PHYSICAL DATE OF SURGERY: 06/14/2022. HISTORY OF PRESENT ILLNESS: Ana Trent is a 31-year-old patient seen with progressive left shoulder pain. We discussed options for treatment, status post left shoulder arthroscopy. Consent regarding the procedure was obtained. PAST MEDICAL HISTORY: Hypertension. PAST SURGICAL HISTORY: Appendectomy, section, cholecystectomy. DAILY MEDICATIONS: Furosemide, losartan, metoprolol, Motrin. ALLERGIES: None. SOCIAL HISTORY: She denies current tobacco use. PHYSICAL EVALUATION OF THE LEFT SHOULDER: Flexion is 110 degrees, abduction 70 degrees, external rotation is 30 degrees with pain and weakness. Tenderness along the anterolateral acromion and rotator cuff insertion. Impingement is positive at 70 degrees. Drop-arm sign is positive. Distal neurovascular exam is intact. Left shoulder radiographs revealed a type 2 acromion. MRI of left shoulder revealed a partial rotator cuff tendon tear. IMPRESSION: 1. Left shoulder impingement with partial rotator cuff tear. 2. Hypertension. PLAN: Left shoulder arthroscopy with subacromial decompression, possible arthroscopic rotator cuff repair and debridement. MMODL / IJN: [id number] /
[~2022-06-14 09:07] MED LIST changes: -ALPRAZolam 0.25 MG TAB PO PRN; -ALPRAZolam 0.5 MG TAB PO PRN; -ASPIRIN 325 MG TAB PO STA; -ATORVASTATIN 80 MG TAB PO STA; +DEXAMETHASONE SOD PHOSPHATE 4 MG/ML 1 ML VIAL IV ONE; +HYDROmorphone 0.5 MG/0.5 ML SYRINGE IVP PRN; +LACTATED RINGERS 1,000 ML IV SCH; +LIDOCAINE 1% (10MG/ML) FOR IV START INTRADERMA PRN; -NITROGLYCERIN SL TABS 0.4 MG TAB SUBLINGUAL PRN; +ONDANSETRON 4 MG/2 ML VIAL IVP ONE; -SODIUM CHLORIDE 0.9% 1,000 ML in EMPTY BAG 1 BAG IV SCH
[2022-06-14] MEDS ORDERED: fentaNYL (PF) 50 MCG/ML 2 ML AMP IVP ONE (10:38)
[2022-06-14] MEDS ORDERED: MIDAZOLAM 2 MG/2 ML VIAL IVP ONE (10:38)
[2022-06-14] MEDS ORDERED: SUCCINYLCHOLINE CHLORIDE 200 MG/10 ML VIAL IV ONE (11:41)
[2022-06-14] MEDS ORDERED: LIDOCAINE 2% INJ 20 MG/ML (2 ML VIAL) ONE (11:41)
[2022-06-14] MEDS ORDERED: PROPOFOL 10 MG/ML 20 ML VIAL IV ONE (11:41)
[2022-06-14] MEDS ORDERED: ROCURONIUM 10 MG/ML (5 ML VIAL) IV ONE (11:41)
[2022-06-14] MEDS ORDERED: fentaNYL (PF) 50 MCG/ML 2 ML AMP ONE (11:41)
[2022-06-14] MEDS ORDERED: KETOROLAC 15 MG/ML 1 ML VIAL ONE (11:41)
[2022-06-14] MEDS ORDERED: ROPIVACAINE 5 MG/ML 30 ML VIAL ONE (11:41)
[2022-06-14 13:08] VITALS: TEMP 97.3
--- NOTE | 2022-06-14 13:11 | P.OP ---
Date of Procedure: 06/14/22 Preoperative Diagnosis: Left shoulder impingement Postoperative Diagnosis: 1. Left shoulder rotator cuff tear 2. Left shoulder impingement Procedure(s) Performed: 1. Left shoulder arthroscopic rotator cuff repair 2. Left shoulder arthroscopic subacromial decompression Implants: 14.75 Arthrex swivel lock anchor Anesthesia: GETA, regional (Interscalene Block) Surgeon: Cristhian Goodman Roading Engineer #1: Davi Diehl Estimated Blood Loss (ml): 10 Pathology: none sent Condition: stable Disposition: PACU Indications for Procedure: 31-year-old patient seen with progressive left shoulder pain. After having treatment options discussed, she elected to proceed with arthroscopy. Operative Findings: See description of procedure Description of Procedure: Patient underwent an interscalene block by department of anesthesia. The patient was then taken to the operative suite. The patient underwent a general anesthetic by the department of anesthesia. The patient was placed into a lateral position and secured. There was appropriate padding of the bony prominence. Left shoulder was then prepped and draped in normal sterile orthopedic fashion. We placed the extremity in 10 pounds of longitudinal traction. A posterior incision was now made for a posterior working portal site. The trocar and cannula were inserted into the glenohumeral joint. Arthroscopy was initiated. Spinal needle was now inserted anteriorly, to ascertain the anterior working portal site. An incision was now made in that area, a trocar was inserted followed by a probe. The glenohumeral joint appeared unremarkable. The labrum was stable. The biceps was stable. At this point instruments removed from subacromial space. Utilizing the posterior working portal site, the trocar and cannula were inserted into the subacromial space. Arthroscopy initiated. I made an incision 2 fingerbreadths lateral to the acromion. I introduced my trocar followed by my ArthroCare ablator. I now began ablating thick subacromial bursal tissue, which exposed the undersurface of the anterior acromion. There was diminished subacromial space. I introduced a motorized bur and I performed a subacromial d ecompression. We had achieved adequate decompression of the subacromial space. I now turned my attention to the rotator cuff tendon. There was some significant fraying and tearing along the distal supraspinatus tendon. Upon probing the area I did come across a full-thickness perforation. I debrided the margins getting down to stable tendon tissue. The tear/defect measured approximately 11.5 cm. I abraded the footprint with a motorized bur. With the assistance of Edgardo MUELLER I now passed 2 everted mattress sutures through good bites of rotator cuff tendon. I punched a hole the footprint area for insertion of an anchor. All 4 limbs of the suture were passed through the eyelets of a 4.75 Arthrex swivel lock anchor. I placed the eyelet of the anchor into our pre-punch hole. I held the eyelet in position while Edgardo MUELLER tensioned all 4 limbs of suture and deployed the anchor with good fixation noted. All residual suture limbs were now clipped. We had good compression of the tendon along the entire footprint. Instruments now removed from the portal sites. All portal sites were approximated with nylon suture. Sterile dressings were applied followed by a shoulder sling. Davi MUELLER assisted in this complex case. The patient was awakened, transferred to a bed, and taken to recovery in stable condition.
--- NOTE | 2022-06-14 15:11 | P.ANPRN ---
Procedure Note - Anesthesia - Nerve Block Performed Left Interscalene Single Time Out Performed: Yes (1037) Date of Procedure: 06/14/22 Procedure Start Time: 10:38 Procedure Stop Time: 10:42 Location of Patient: PreOp Indication: Acute Post-Operative Pain, Requested by Surgeon Specifically requested for management of pain by DrJerrica: Cristhian Goodman Sedation Type: Sedate with meaningful contact maintained Preparation: Sterile Prep Position: Supine Catheter: None Needle Types: Pajunk Needle Gauge: 21 Ultrasound used to visualize needle placement: Yes Ultrasound used to observe medication spread: Yes Injectate: 0.5% Ropivacaine (see comment for volume) (30cc) Blood Aspirated: No Pain Paresthesia on Injection Noted: No Resistance on Injection: Normal Image Stored and Saved: Yes Events: Uneventful and Well Tolerated
[2022-06-14 15:25] VITALS: PULSE 83
[2022-06-14 15:44] VITALS: BP 130/89; RESP 17
== END 2022-06-14 16:20 | disposition home or self-care (01) ==
LOC: OR 09:07
PROVIDERS: ATTEND Orthopaedic Surgery
DX: M75.122 Complete rotator cuff tear or rupture of left shoulder, not specified as traumatic (principal); M75.42 Impingement syndrome of left shoulder; G89.18 Other acute postprocedural pain; I10 Essential (primary) hypertension; Z90.49 Acquired absence of other specified parts of digestive tract; Z98.890 Other specified postprocedural states; Z79.1 Long term (current) use of non-steroidal anti-inflammatories (NSAID); Z79.899 Other long term (current) drug therapy; J45.909 Unspecified asthma, uncomplicated
CPT/HCPCS: 29827; 29826; 64415; 76942; 81025; C1713 ×2; J2250; J0330; J1100; J0690; J2405; J3010; J2795; J1885; J2704; J1790; J2001

== ENCOUNTER 2022-09-27 16:51 | Emergency (ER) | payer OTHER ==
[2022-09-27 18:34] VITALS: RESP 18; TEMP 98.6
--- NOTE | 2022-09-27 18:38 | ED ---
General Adult HPI - General Source: patient Mode of arrival: ambulatory Limitations: no limitations <Christina Kumar - Last Filed: 09/27/22 18:36> <Juan Duarte - Last Filed: 09/27/22 22:28> - General Chief complaint: Abdominal Pain Stated complaint: Abd Pain spreading to back - History of Present Illness Initial comments: 31-year-old female presents to the emergency department chief complaint of right-sided upper abdominal pain 3 hours. She states the pain radiates around to her back. She reports nausea without vomiting. Denies diarrhea, urinary frequency, dysuria. Past surgical history includes cholecystectomy, appendectomy. (Christina Kumar) Dictation was produced using [employer] dictation software. please excuse any grammatical, word or spelling errors. Chief Complaint: 31-year-old female past medical history of cholecystectomy presents to the ER for right upper quadrant pain History of Present Illness: She is 31-year-old female that she has history of cholecystectomy performed 2-3 years ago. She states that since around 3:00 PM she has had epigastric pain that radiates to the right flank. She does competitive some nausea. No vomiting. No diarrhea. No fevers. Patient denies of the pain radiates to her back. The ROS documented in this emergency department record has been reviewed and confirmed by me. Those systems with pertinent positive or negative responses h ave been documented in the HPI. All other systems are other negative and/or noncontributory. (Juan Duarte) - Related Data Home Medications Medication Instructions Recorded Confirmed Metoprolol Succinate (ER) [Toprol 25 mg PO DAILY 03/02/21 09/27/22 Xl] Furosemide [Lasix] 20 mg PO DAILY 05/29/21 09/27/22 Potassium Chloride ER [K-Dur 10] 10 meq PO DAILY 05/29/21 09/27/22 HYDROcodone/APAP 5-325MG [[place] 1 tab PO TID PRN 09/27/22 09/27/22 5-325] Losartan Potassium 50 mg PO DAILY 09/27/22 09/27/22 Allergies Allergy/AdvReac Type Severity Reaction Status Date / Time No Known Allergies Allergy Verified 09/27/22 18:34 Review of Systems ROS Other: All systems not noted in ROS Statement are negative. <Christina Kumar - Last Filed: 09/27/22 18:36> ROS Other: All systems not noted in ROS Statement are negative. <Juan Duarte - Last Filed: 09/27/22 22:28> ROS Statement: Those systems with pertinent positive or pertinent negative responses have been documented in the HPI. Past Medical History Past Medical History: Asthma Additional Past Medical History / Comment(s): GALLBLADDER DISORDER History of Any Multi-Drug Resistant Organisms: None Reported Past Surgical History: Appendectomy, Section, Cholecystectomy, Orthopedic Surgery Additional Past Surgical History / Comment(s): duodenal surgery in childhood, lt shoulder Past Anesthesia/Blood Transfusion Reactions: No Reported Reaction Past Psychological History: No Psychological Hx Reported Smoking Status: Never smoker Past Alcohol Use History: None Reported Past Drug Use History: None Reported - Past Family History Mother Family Medical History: No Reported History Brother(s) Family Medical History: No Reported History <Christina Kumar - Last Filed: 09/27/22 18:36> General Exam Limitations: no limitations <Christina Kumar - Last Filed: 09/27/22 18:36> <Juan Duarte - Last Filed: 09/27/22 22:28> - General Exam Comments Initial Comments: Visual Physical Exam Vital signs reviewed General: Well-appearing, nontoxic, no acute distress. Head: Normocephalic, atraumatic Eyes: PERRLA, EOMI ENT: Airway patent Chest: Nonlabored breathing Skin: No visual rash, normal skin tone Neuro: Alert and oriented 3 Musculoskeletal: No gross abnormalities (Christina Kumar) PHYSICAL EXAM: General Impression: Alert and oriented x3, not in acute distress HEENT: Normocephalic atraumatic, extra-ocular movements intact, pupils equal and reactive to light bilaterally, mucous membranes moist. Cardiovascular: Heart regular rate and rhythm Chest: Able to complete full sentences, no retractions, no tachypnea Abdomen: abdomen soft, mild palpatory tenderness to the epigastric and right upper quadrant, negative Keating sign, non-distended, no organomegaly Musculoskeletal: Pulses present and equal in all extremities, no peripheral edema Motor: no focal deficits noted Neurological: CN II-XII grossly intact, no focal motor or sensory deficits noted Skin: Intact with no visualized rashes Psych: Normal affect and mood (Juan Duarte) Course Vital Signs 09/27/22 09/27/22 18:30 21:20 Temperature 98.6 F Pulse Rate 79 75 Respiratory 18 18 Rate Blood Pressure 125/74 125/93 O2 Sat by Pulse 97 99 Oximetry Medical Decision Making - Lab Data Result diagrams: 09/27/22 19:50 09/27/22 19:50 <Juan Duarte - Last Filed: 09/27/22 22:28> - Medical Decision Making Was pt. sent in by a medical professional or institution (, PA, NEGATIVE TURNER APPRENTICE, urgent care, hospital, or group home...) When possible be specific @ -No Did you speak to anyone other than the patient for history (EMS, parent, family, police, friend...)? What history was obtained from this source @ -No Did you review nursing and triage notes (agree or disagree)? Why? @ -I reviewed and agree with nursing and triage notes Were old charts reviewed (outside hosp., previous admission, EMS record, old EKG, old radiological studies, urgent care reports/EKG's, group home records)? Report findings @ -No old charts were reviewed Differential Diagnosis (chest pain, altered mental status, abdominal pain women, abdominal pain men, vaginal bleeding, musculoskeletal, weakness, fever, dyspnea, syncope, headache, dizziness, GI bleed, back pain, seizure, CVA, palpatations, mental health)? @ -Differential Abdominal Pain Women: Appendicitis, Cholecystitis, diverticulosis, ischemic bowel, pancreatitis, hepatitis, UTI, gastroenteritis, AAA, incarcerated hernia, bowel obstruction, constipation, inflammatory bowel, hepatitis, peptic ulcer disease, splenic infarction, perforated viscus, vulvitis, ovarian torsion, PID, kidney stone, placenta abruption, this is not meant to be an all-inclusive list EKG interpreted by me (3pts min.). @ -None done X-rays interpreted by me (1pt min.). @ -None done CT interpreted by me (1pt min.). @ -None done U/S interpreted by me (1pt. min.). @ -Right upper quadrant abdomen ultrasound shows no acute processes What testing was considered but not performed or refused? (CT, X-rays, U/S, labs )? Why? @ -None What meds were considered but not given or refused? Why? @ -None Did you discuss the management of the patient with other professionals (professionals i.e. , PA, NEGATIVE TURNER APPRENTICE, lab, RT, psych nurse, pediatric social worker, video editing internship, teacher, surveillance officer, rifle case repairer)? Give summary @ -No Was smoking cessation discussed for >3mins.? @ -No Was critical care preformed (if so, how long)? @ -No Were there social determinants of health that impacted care today? How? (Homelessness, low income, unemployed, alcoholism, drug addiction, transportation, low edu. Level, literacy, decrease access to med. care, fci, rehab)? @ -No Was there de-escalation of care discussed even if they declined (Discuss DNR or withdrawal of care, Hospice)? DNR status @ -No What co-morbidities impacted this encounter? (DM, HTN, Smoking, COPD, CAD, Cancer, CVA, ARF, Chemo, Hep., AIDS, mental health diagnosis, sleep apnea, morbid obesity)? @ -Morbid obesity Was patient admitted / discharged? Hospital course, mention meds given and route, prescriptions, significant lab abnormalities, going to OR and other pertinent info. @ -31-year-old female presents to the emergency department for abdominal pain. Vital signs upon arrival are within acceptable limits. Laboratory evaluation obtained. CBC metabolic panel is unremarkable. Liver enzymes lipase negative. Urinalysis within acceptable limits. Ultrasound negative. Exacerbation symptoms likely musculoskeletal. She has history of cholecystectomy. Patient given analgesics and discharge. Undiagnosed new problem with uncertain prognosis? @ -No Drug Therapy requiring intensive monitoring for toxicity (Heparin, Nitro, Insulin, Cardizem)? @ -No Were any procedures done? @ -No Diagnosis/symptom? Acute, or Chronic, or Acute on Chronic? Uncomplicated (without systemic symptoms) or Complicated (systemic symptoms)? @ -1. Abdominal pain, no obvious source, no high-risk features Side effects of treatment? @ -No Exacerbation, Progression, or Severe Exacerbation? @ -No Poses a threat to life or bodily function? How? (Chest pain, [place], [place], pneumonia, PE, COPD, DKA, ARF, appy, cholecystitis, CVA, Diverticulitis, Homicidal, Suicidal, threat to staff... and all critical care pts) @ -No (Juan Duarte) - Lab Data Lab Results 09/27/22 09/27/22 09/27/22 Range/Units 18:34 18:34 19:50 WBC 7.9 (3.8-10.6) k/uL RBC 4.95 (3.80-5.40) m/uL Hgb 12.8 (11.4-16.0) gm/dL Hct 38.9 (34.0-46.0) % MCV 78.6 L (80.0-100.0) fL MCH 25.9 (25.0-35.0) pg MCHC 32.9 (31.0-37.0) g/dL RDW 14.7 (11.5-15.5) % Plt Count 300 (150-450) k/uL MPV 7.7 Neutrophils % 44 % Lymphocytes % 44 % Monocytes % 6 % Eosinophils % 4 % Basophils % 1 % Neutrophils # 3.5 (1.3-7.7) k/uL Lymphocytes # 3.4 (1.0-4.8) k/uL Monocytes # 0.5 (0-1.0) k/uL Eosinophils # 0.3 (0-0.7) k/uL Basophils # 0.0 (0-0.2) k/uL Hypochromasia Slight Sodium (137-145) mmol/L Potassium (3.5-5.1) mmol/L Chloride (98-107) mmol/L Carbon Dioxide (22-30) mmol/L Anion Gap mmol/L BUN (7-17) mg/dL Creatinine (0.52-1.04) mg/dL Est GFR (CKD-EPI)AfAm (>60 ml/min/1.73 sqM) Est GFR (CKD-EPI)NonAf (>60 ml/min/1.73 sqM) Glucose (74-99) mg/dL Calcium (8.4-10.2) mg/dL Total Bilirubin (0.2-1.3) mg/dL AST (14-36) U/L ALT (4-34) U/L Alkaline Phosphatase (38-126) U/L Total Protein (6.3-8.2) g/dL Albumin (3.5-5.0) g/dL Amylase (30-110) U/L Lipase (23-300) U/L Urine Color Light Yellow Urine Appearance Clear (Clear) Urine pH 5.5 (5.0-8.0) Ur Specific [place] 1.012 (1.001-1.035) Urine Protein Negative (Negative) Urine Glucose (UA) Negative (Negative) Urine Ketones Negative (Negative) Urine Blood Negative (Negative) Urine Nitrite Negative (Negative) Urine Bilirubin Negative (Negative) Urine Urobilinogen <2.0 (<2.0) mg/dL Ur Leukocyte Esterase Small H (Negative) Urine RBC <1 (0-5) /hpf Urine WBC 2 (0-5) /hpf Ur Squamous Epith Cells 4 (0-4) /hpf Urine Bacteria Moderate H (None) /hpf Urine Mucus Occasional H (None) /hpf Urine HCG, Qual Not Detected (Not Detectd) 09/27/22 Range/Units 19:50 WBC (3.8-10.6) k/uL RBC (3.80-5.40) m/uL Hgb (11.4-16.0) gm/dL Hct (34.0-46.0) % MCV (80.0-100.0) fL MCH (25.0-35.0) pg MCHC (31.0-37.0) g/dL RDW (11.5-15.5) % Plt Count (150-450) k/uL MPV Neutrophils % % Lymphocytes % % Monocytes % % Eosinophils % % Basophils % % Neutrophils # (1.3-7.7) k/uL Lymphocytes # (1.0-4.8) k/uL Monocytes # (0-1.0) k/uL Eosinophils # (0-0.7) k/uL Basophils # (0-0.2) k/uL Hypochromasia Sodium 140 (137-145) mmol/L Potassium 4.0 (3.5-5.1) mmol/L Chloride 105 (98-107) mmol/L Carbon Dioxide 23 (22-30) mmol/L Anion Gap 12 mmol/L BUN 12 (7-17) mg/dL Creatinine 0.95 (0.52-1.04) mg/dL Est GFR (CKD-EPI)AfAm >90 (>60 ml/min/1.73 sqM) Est GFR (CKD-EPI)NonAf 81 (>60 ml/min/1.73 sqM) Glucose 100 H (74-99) mg/dL Calcium 9.4 (8.4-10.2) mg/dL Total Bilirubin 0.4 (0.2-1.3) mg/dL AST 21 (14-36) U/L ALT 20 (4-34) U/L Alkaline Phosphatase 107 (38-126) U/L Total Protein 8.1 (6.3-8.2) g/dL Albumin 4.5 (3.5-5.0) g/dL Amylase 82 (30-110) U/L Lipase 103 (23-300) U/L Urine Color Urine Appearance (Clear) Urine pH (5.0-8.0) Ur Specific [place] (1.001-1.035) Urine Protein (Negative) Urine Glucose (UA) (Negative) Urine Ketones (Negative) Urine Blood (Negative) Urine Nitrite (Negative) Urine Bilirubin (Negative) Urine Urobilinogen (<2.0) mg/dL Ur Leukocyte Esterase (Negative) Urine RBC (0-5) /hpf Urine WBC (0-5) /hpf Ur Squamous Epith Cells (0-4) /hpf Urine Bacteria (None) /hpf Urine Mucus (None) /hpf Urine HCG, Qual (Not Detectd) Disposition <Christina Kumar - Last Filed: 09/27/22 18:36> Is patient prescribed a controlled substance at d/c from ED?: No Time of Disposition: 22:28 <Juan Duarte - Last Filed: 09/27/22 22:28> Clinical Impression: Abdominal pain Disposition: HOME SELF-CARE Condition: Good Instructions (If sedation given, give patient instructions): Abdominal Pain (ED) Referrals: Prudence Forrest MD [Primary Care Provider] - 1-2 days
[2022-09-27 19:07] LABS: Appearance,Urine Clear (Clear); Bacteria,Urine Moderate /hpf; Bilirubin,Urine Negative (Negative); Blood,Urine Negative (Negative); Color,Urine Light Yellow; Glucose,Urine (UA) Negative (Negative); Ketones,Urine Negative (Negative); Leukocyte Esterase,Urine Small (Negative); Mucus,Urine Occasional /hpf; Nitrite,Urine Negative (Negative); PH, Urine 5.5 (5.0-8.0); Protein,Urine Negative (Negative); RBC,Urine <1 /hpf (0-5); Specific Gravity,Urine 1.012 (1.001-1.035); Squamous Epithelial Cell,Urine 4 /hpf (0-4); Urobilinogen,Urine <2.0 mg/dL (<2.0); WBC,Urine 2 /hpf (0-5)
[2022-09-27 19:59] LABS: Basophils % (A) 1 %; Eosinophils # (A) 0.3 k/uL (0-0.7); Eosinophils % (A) 4 %; HCT 38.9 % (34.0-46.0); HGB 12.8 gm/dL (11.4-16.0); Hypochromasia Slight; Lymphocytes # (A) 3.4 k/uL (1.0-4.8); Lymphocytes % (A) 44 %; MCH 25.9 pg (25.0-35.0); MCHC 32.9 g/dL (31.0-37.0); MCV 78.6 fL (80.0-100.0); Mean Platelet Volume 7.7; Monocytes # (A) 0.5 k/uL (0-1.0); Monocytes % (A) 6 %; Neutrophils # (A) 3.5 k/uL (1.3-7.7); Neutrophils % (A) 44 %; Platelet Count 300 k/uL (150-450); RBC 4.95 m/uL (3.80-5.40); RDW 14.7 % (11.5-15.5); WBC 7.9 k/uL (3.8-10.6)
[2022-09-27 20:21] LABS: ALT 20 U/L (4-34); AST 21 U/L (14-36); African American GFR (CKD) >90 (>60 ml/min/1.73 sqM); Albumin 4.5 g/dL (3.5-5.0); Alkaline Phosphatase 107 U/L (38-126); Amylase 82 U/L (30-110); Anion Gap 12 mmol/L; Blood Urea Nitrogen 12 mg/dL (7-17); Calcium 9.4 mg/dL (8.4-10.2); Carbon Dioxide 23 mmol/L (22-30); Chloride 105 mmol/L (98-107); Glucose 100 mg/dL (74-99); Lipase 103 U/L (23-300); Non-African American GFR(CKD) 81 (>60 ml/min/1.73 sqM); Sodium 140 mmol/L (137-145); Total Bilirubin 0.4 mg/dL (0.2-1.3); Total Protein 8.1 g/dL (6.3-8.2)
--- NOTE | 2022-09-27 21:57 | US ---
EXAMINATION TYPE: US abdomen limited DATE OF EXAM: 09/27/2022 COMPARISON: 09/30/18, CT: 12/27/18 CLINICAL INDICATION: Female, 31 years old with history of epigastric pain and RUQ pain; Epigastric an d RUQ pain. Cholecystectomy. Hx of chronic pyelonephritis TECHNIQUE: Multiple sonographic images of the right upper quadrant are obtained. FINDINGS: EXAM MEASUREMENTS: Liver Length: 11.8 cm Gallbladder Wall: Surgically absent cm CBD: 0.33 cm Right Kidney: 8.2 x 3.3 x 3.5 cm COMMAND POST SUPERINTENDENT NOTES: Pancreas: Obscured by bowel gas Liver: Within normal limits. Gallbladder: Surgically absent Evidence for sonographic Keating's sign: No CBD: Within normal limits Right Kidney: Anechoic cyst in the right upper pole measures 1.3 x 1.1 x 1.0cm . No evidence for hyd ronephrosis of the right kidney is visualized. IMPRESSION: No sonographic evidence for acute right upper quadrant abnormality.
[2022-09-27] MEDS ORDERED: MORPHINE SULFATE 2 MG/ML SYRINGE IVP STA (22:26)
[2022-09-27] MEDS ORDERED: ACET/COD 300 MG/30 MG STARTER PACK 6 TAB BTL PO STA (22:26)
[2022-09-27 22:45] VITALS: BP 111/79; PULSE 79
== END 2022-09-27 22:50 | disposition home or self-care (01) ==
LOC: EC 16:51
DX: R10.11 Right upper quadrant pain (principal); J45.909 Unspecified asthma, uncomplicated; E66.01 Morbid (severe) obesity due to excess calories; Z90.49 Acquired absence of other specified parts of digestive tract; Z79.899 Other long term (current) drug therapy; Z68.41 Body mass index [BMI] 40.0-44.9, adult
CPT/HCPCS: 99284 ×2; 96374 ×2; 36415; 80053; 82150; 83690; 85025; 81001; 81025; 76705; J2270

== ENCOUNTER 2022-09-28 15:48 | Observation (INO) | payer OTHER ==
[2022-09-28] MEDS ORDERED: SODIUM CHLORIDE 0.9% 1,000 ML IV STA (16:07)
[2022-09-28] MEDS ORDERED: KETOROLAC 15 MG/ML 1 ML VIAL IVP STA (16:19)
[2022-09-28] MEDS ORDERED: PANTOPRAZOLE 40 MG/10 ML VIAL IVP STA (16:19)
[2022-09-28] MEDS ORDERED: FAMOTIDINE 20 MG/2 ML VIAL IV STA (16:19)
[2022-09-28 16:54] LABS: Basophils % (A) 0 %; Eosinophils # (A) 0.4 k/uL (0-0.7); Eosinophils % (A) 5 %; HCT 38.7 % (34.0-46.0); HGB 12.1 gm/dL (11.4-16.0); Hypochromasia Slight; Lymphocytes # (A) 3.5 k/uL (1.0-4.8); Lymphocytes % (A) 41 %; MCH 24.7 pg (25.0-35.0); MCHC 31.2 g/dL (31.0-37.0); MCV 79.2 fL (80.0-100.0); Mean Platelet Volume 7.8; Monocytes # (A) 0.6 k/uL (0-1.0); Monocytes % (A) 7 %; Neutrophils # (A) 3.9 k/uL (1.3-7.7); Neutrophils % (A) 45 %; Platelet Count 300 k/uL (150-450); RBC 4.88 m/uL (3.80-5.40); RDW 14.7 % (11.5-15.5); WBC 8.7 k/uL (3.8-10.6)
[2022-09-28 17:07] LABS: Appearance,Urine Clear (Clear); Bacteria,Urine Moderate /hpf; Bilirubin,Urine Negative (Negative); Blood,Urine Negative (Negative); Color,Urine Light Yellow; Glucose,Urine (UA) Negative (Negative); Ketones,Urine Negative (Negative); Leukocyte Esterase,Urine Trace (Negative); Mucus,Urine Rare /hpf; Nitrite,Urine Negative (Negative); Protein,Urine Negative (Negative); RBC,Urine <1 /hpf (0-5); Specific Gravity,Urine 1.007 (1.001-1.035); Squamous Epithelial Cell,Urine 2 /hpf (0-4); Urobilinogen,Urine <2.0 mg/dL (<2.0); WBC,Urine 2 /hpf (0-5)
[2022-09-28 17:08] LABS: Partial Thromboplastin Time 23.3 sec (22.0-30.0); Prothrombin Time 10.1 sec (9.0-12.0)
[2022-09-28 17:16] LABS: ALT 14 U/L (4-34); AST 16 U/L (14-36); African American GFR (CKD) >90 (>60 ml/min/1.73 sqM); Alkaline Phosphatase 77 U/L (38-126); Anion Gap 5 mmol/L; Blood Urea Nitrogen 10 mg/dL (7-17); Calcium 6.8 mg/dL (8.4-10.2); Carbon Dioxide 20 mmol/L (22-30); Chloride 115 mmol/L (98-107); Glucose 66 mg/dL (74-99); Lipase 68 U/L (23-300); Non-African American GFR(CKD) >90 (>60 ml/min/1.73 sqM); Potassium 3.1 mmol/L (3.5-5.1); Sodium 140 mmol/L (137-145); Total Bilirubin 0.2 mg/dL (0.2-1.3); Total Protein 5.6 g/dL (6.3-8.2)
--- NOTE | 2022-09-28 17:34 | CT ---
EXAMINATION TYPE: CT abdomen pelvis wo con CT DLP: 1522 mGycm, Automated exposure control for dose reduction was used. DATE OF EXAM: 09/28/2022 5:12 PM COMPARISON: CT abdomen pelvis most recent from 12/27/2018 CLINICAL INDICATION:Female, 31 years old with history of RUQ pain; RUQ pain x2 days TECHNIQUE: Axial CT of the abdomen and pelvis. Sagittal and coronal reformats were created on a [employer] workstation. Contrast used: mL of , (none if empty) Oral contrast used: without Oral Contrast (none if empty) FINDINGS: LOWER CHEST: The heart is mildly enlarged for size. ABDOMEN LIVER: Unremarkable GALLBLADDER AND BILE DUCTS: The gallbladder is surgically absent. PANCREAS: Unremarkable. SPLEEN: Unremarkable. ADRENAL GLANDS: Unremarkable. KIDNEYS AND URETERS: Atrophic right kidney left kidney demonstrates multiple lobulations. PELVIS BLADDER: Unremarkable REPRODUCTIVE: Unremarkable. ABDOMEN & PELVIS STOMACH AND BOWEL: No evidence of bowel obstruction. PERITONEUM/RETROPERITONEUM: No evidence of pneumoperitoneum or free fluid. VASCULATURE: No evidence of aortic aneurysm. MUSCULOSKELETAL: No acute osseous abnormalities LYMPH NODES: No gross evidence for lymphadenopathy. SOFT TISSUE/ABDOMINAL WALL: Fat-containing umbilical hernia. IMPRESSION: 1. No evidence for acute right upper quadrant process to explain the patient's pain. The gallbladder is surgically absent. 2. There is atrophic appearing right kidney with nodular contour. The left kidney also demonstrates a nodular contour. Clinical correlation for kidney failure is recommended.
[2022-09-28] MEDS ORDERED: POTASSIUM CHLORIDE ER 20 MEQ TAB.ER PO STA (17:36)
[2022-09-28] MEDS ORDERED: HYDROmorphone 0.5 MG/0.5 ML SYRINGE IVP STA (18:20)
[2022-09-28] MEDS ORDERED: NALOXONE 0.4 MG/ML 1 ML VIAL IV PRN (18:30)
[2022-09-28] MEDS ORDERED: CALCIUM GLUCONATE IN NACL 1 GM in SALINE 1 100ML.BAG IVPB ONE (18:30)
[2022-09-28] MEDS ORDERED: HYDROmorphone 0.5 MG/0.5 ML SYRINGE IVP PRN (18:36)
--- NOTE | 2022-09-28 18:39 | ED ---
Abdominal Pain HPI - General Chief Complaint: Abdominal Pain Stated Complaint: abd pain Time Seen by Provider: 09/28/22 16:04 Source: patient Mode of arrival: EMS Limitations: no limitations - History of Present Illness Initial Comments: Patient is a 31-year-old female presents to the emergency department for abdominal pain. She has history of cholecystectomy and appendectomy. Patient reports pain in her right upper abdomen started yesterday. It radiates to the right flank. She reports nausea with decreased oral intake. No vomiting. No fever, chills, diarrhea, blood in stool. No urinary symptoms or concern for sexually infections. No chest pain or shortness of breath. Patient did come to the emergency department yesterday she was discharged with pain medication. US and lab work were negative. States she is taking a Tylenol 3 without any improvement. - Related Data Home Medications Medication Instructions Recorded Confirmed Metoprolol Succinate (ER) [Toprol 25 mg PO DAILY 03/02/21 09/27/22 Xl] Furosemide [Lasix] 20 mg PO DAILY 05/29/21 09/27/22 Potassium Chloride ER [K-Dur 10] 10 meq PO DAILY 05/29/21 09/27/22 HYDROcodone/APAP 5-325MG [[place] 1 tab PO TID PRN 09/27/22 09/27/22 5-325] Losartan Potassium 50 mg PO DAILY 09/27/22 09/27/22 Allergies Allergy/AdvReac Type Severity Reaction Status Date / Time No Known Allergies Allergy Verified 09/27/22 18:34 Review of Systems ROS Statement: Those systems with pertinent positive or pertinent negative responses have been documented in the HPI. ROS Other: All systems not noted in ROS Statement are negative. Past Medical History Past Medical History: Asthma Additional Past Medical History / Comment(s): GALLBLADDER DISORDER History of Any Multi-Drug Resistant Organisms: None Reported Past Surgical History: Appendectomy, Section, Cholecystectomy, Orthopedic Surgery Additional Past Surgical History / Comment(s): duodenal surgery in childhood, lt shoulder Past Anesthesia/Blood Transfusion Reactions: No Reported Reaction Past Psychological History: No Psychological Hx Reported Smoking Status: Never smoker Past Alcohol Use History: None Reported Past Drug Use History: None Reported - Past Family History Mother Family Medical History: No Reported History Brother(s) Family Medical History: No Reported History General Exam Limitations: no limitations General appearance: alert, in no apparent distress Head exam: Present: atraumatic, normocephalic, normal inspection Eye exam: Present: normal appearance, PERRL, EOMI. Absent: scleral icterus, conjunctival injection, periorbital swelling Respiratory exam: Present: normal lung sounds bilaterally. Absent: respiratory distress, wheezes, rales, rhonchi, stridor Cardiovascular Exam: Present: regular rate, normal rhythm, normal heart sounds. Absent: systolic murmur, diastolic murmur, rubs, gallop, clicks GI/Abdominal exam: Present: soft, tenderness (RUQ), normal bowel sounds. Absent: distended, guarding, rebound, rigid Neurological exam: Present: alert, oriented X3, CN II-XII intact Psychiatric exam: Present: normal affect, normal mood Skin exam: Present: warm, dry, intact, normal color. Absent: rash Course Vital Signs 09/28/22 15:50 Temperature 98.1 F Pulse Rate 72 Respiratory 20 Rate Blood Pressure 108/75 O2 Sat by Pulse 99 Oximetry Medical Decision Making - Medical Decision Making EKG taken at 18:47, interpreted by myself Sinus rhythm, no ST segment or T-wave abnormality Ventricular rate 75, ID interval 162, QRS duration 88, QTC 420 Was pt. sent in by a medical professional or institution (, PA, RESIDENTIAL ROOFER, urgent care, hospital, or long term...) When possible be specific @ -No Did you speak to anyone other than the patient for history (EMS, parent, family, police, friend...)? What history was obtained from this source @ -No Did you review nursing and triage notes (agree or disagree)? Why? @ -I reviewed and agree with nursing and triage notes Were old charts reviewed (outside hosp., previous admission, EMS record, old EKG, old radiological studies, urgent care reports/EKG's, long term records)? Report findings @ -No old charts were reviewed Differential Diagnosis (chest pain, altered mental status, abdominal pain women, abdominal pain men, vaginal bleeding, weakness, fever, dyspnea, syncope, headache, dizziness, GI bleed, back pain, seizure, CVA, palpatations, mental health)? @ Differential Abdominal Pain Women: Appendicitis, Cholecystitis, diverticulosis, ischemic bowel, pancreatitis, h epatitis, UTI, gastroenteritis, AAA, incarcerated hernia, bowel obstruction, constipation, inflammatory bowel, hepatitis, peptic ulcer disease, splenic infarction, perforated viscus, vulvitis, ovarian torsion, PID, kidney stone, placenta abruption, this is not meant to be an all-inclusive list EKG interpreted by me (3pts min.). @ -As above X-rays interpreted by me (1pt min.). @ -None done CT interpreted by me (1pt min.). @ -No acute intra abdominal process to explain symptoms U/S interpreted by me (1pt. min.). @ -None done What testing was considered but not performed or refused? (CT, X-rays, U/S, labs)? Why? @ -None What meds were considered but not given or refused? Why? @ -None Did you discuss the management of the patient with other professionals (professionals i.e. , PA, RESIDENTIAL ROOFER, lab, RT, psych nurse, social media coordinator, mental measurements teacher, teacher, chief executive officer, case management manager)? Give summary @ -No Was smoking cessation discussed for >3mins.? @ -No Was critical care preformed (if so, how long)? @ -No Were there social determinants of health that impacted care today? How? (Homelessness, low income, unemployed, alcoholism, drug addiction, transportation, low edu. Level, literacy, decrease access to med. care, fdc, rehab)? @ -No Was there de-escalation of care discussed even if they declined (Discuss DNR or withdrawal of care, Hospice)? DNR status @ -No What co-morbidities impacted this encounter? (DM, HTN, Smoking, COPD, CAD, Cancer, CVA, ARF, Chemo, Hep., AIDS, mental health diagnosis, sleep apnea, morbid obesity)? @ -None Was patient admitted / discharged? Hospital course, mention meds given and route, prescriptions, significant lab abnormalities, going to OR and other pertinent info. @ -Admitted to obs for intractable abdominal pain, hypokalemia, hypocalcemia. Den from [facility] accepts Undiagnosed new problem with uncertain prognosis? @ -No Drug Therapy requiring intensive monitoring for toxicity (Heparin, Nitro, Insulin, Cardizem)? @ -No Were any procedures done? @ -No Diagnosis/symptom? @ intractable abdominal pain, hypokalemia, hypocalcemia Acute, or Chronic, or Acute on Chronic? @ -acute Uncomplicated (without systemic symptoms) or Complicated (systemic symptoms)? @ uncomplicated Side effects of treatment? @ -No Exacerbation, Progression, or Severe Exacerbation? @ -[No] Poses a threat to life or bodily function? How? (Chest pain, [place], [place], pneumonia, PE, COPD, DKA, ARF, appy, cholecystitis, CVA, Diverticulitis, Homicidal, Suicidal, threat to staff... and all critical care pts) @ -No Dr. Esquivel is my attending - Lab Data Result diagrams: 09/28/22 16:18 09/28/22 16:18 Lab Results 09/28/22 09/28/22 09/28/22 Range/Units 16:18 16:18 16:18 WBC 8.7 (3.8-10.6) k/uL RBC 4.88 (3.80-5.40) m/uL Hgb 12.1 (11.4-16.0) gm/dL Hct 38.7 (34.0-46.0) % MCV 79.2 L (80.0-100.0) fL MCH 24.7 L (25.0-35.0) pg MCHC 31.2 (31.0-37.0) g/dL RDW 14.7 (11.5-15.5) % Plt Count 300 (150-450) k/uL MPV 7.8 Neutrophils % 45 % Lymphocytes % 41 % Monocytes % 7 % Eosinophils % 5 % Basophils % 0 % Neutrophils # 3.9 (1.3-7.7) k/uL Lymphocytes # 3.5 (1.0-4.8) k/uL Monocytes # 0.6 (0-1.0) k/uL Eosinophils # 0.4 (0-0.7) k/uL Basophils # 0.0 (0-0.2) k/uL Hypochromasia Slight PT (9.0-12.0) sec INR (<1.2) APTT (22.0-30.0) sec Sodium 140 (137-145) mmol/L Potassium 3.1 L (3.5-5.1) mmol/L Chloride 115 H (98-107) mmol/L Carbon Dioxide 20 L (22-30) mmol/L Anion Gap 5 mmol/L BUN 10 (7-17) mg/dL Creatinine 0.86 (0.52-1.04) mg/dL Est GFR (CKD-EPI)AfAm >90 (>60 ml/min/1.73 sqM) Est GFR (CKD-EPI)NonAf >90 (>60 ml/min/1.73 sqM) Glucose 66 L (74-99) mg/dL Plasma Lactic Acid Brad (0.7-2.0) mmol/L Calcium 6.8 L (8.4-10.2) mg/dL Total Bilirubin 0.2 (0.2-1.3) mg/dL AST 16 (14-36) U/L ALT 14 (4-34) U/L Alkaline Phosphatase 77 (38-126) U/L Troponin I (0.000-0.034) ng/mL Total Protein 5.6 L (6.3-8.2) g/dL Albumin 3.0 L (3.5-5.0) g/dL Lipase 68 (23-300) U/L Urine Color Light Yellow Urine Appearance Clear (Clear) Urine pH 6.0 (5.0-8.0) Ur Specific [place] 1.007 (1.001-1.035) Urine Protein Negative (Negative) Urine Glucose (UA) Negative (Negative) Urine Ketones Negative (Negative) Urine Blood Negative (Negative) Urine Nitrite Negative (Negative) Urine Bilirubin Negative (Negative) Urine Urobilinogen <2.0 (<2.0) mg/dL Ur Leukocyte Esterase Trace H (Negative) Urine RBC <1 (0-5) /hpf Urine WBC 2 (0-5) /hpf Ur Squamous Epith Cells 2 (0-4) /hpf Urine Bacteria Moderate H (None) /hpf Urine Mucus Rare H (None) /hpf 09/28/22 09/28/22 09/28/22 Range/Units 16:18 16:20 16:20 WBC (3.8-10.6) k/uL RBC (3.80-5.40) m/uL Hgb (11.4-16.0) gm/dL Hct (34.0-46.0) % MCV (80.0-100.0) fL MCH (25.0-35.0) pg MCHC (31.0-37.0) g/dL RDW (11.5-15.5) % Plt Count (150-450) k/uL MPV Neutrophils % % Lymphocytes % % Monocytes % % Eosinophils % % Basophils % % Neutrophils # (1.3-7.7) k/uL Lymphocytes # (1.0-4.8) k/uL Monocytes # (0-1.0) k/uL Eosinophils # (0-0.7) k/uL Basophils # (0-0.2) k/uL Hypochromasia PT 10.1 (9.0-12.0) sec INR 1.0 (<1.2) APTT 23.3 (22.0-30.0) sec Sodium (137-145) mmol/L Potassium (3.5-5.1) mmol/L Chloride (98-107) mmol/L Carbon Dioxide (22-30) mmol/L Anion Gap mmol/L BUN (7-17) mg/dL Creatinine (0.52-1.04) mg/dL Est GFR (CKD-EPI)AfAm (>60 ml/min/1.73 sqM) Est GFR (CKD-EPI)NonAf (>60 ml/min/1.73 sqM) Glucose (74-99) mg/dL Plasma Lactic Acid Brad 0.9 (0.7-2.0) mmol/L Calcium (8.4-10.2) mg/dL Total Bilirubin (0.2-1.3) mg/dL AST (14-36) U/L ALT (4-34) U/L Alkaline Phosphatase (38-126) U/L Troponin I <0.012 (0.000-0.034) ng/mL Total Protein (6.3-8.2) g/dL Albumin (3.5-5.0) g/dL Lipase (23-300) U/L Urine Color Urine Appearance (Clear) Urine pH (5.0-8.0) Ur Specific [place] (1.001-1.035) Urine Protein (Negative) Urine Glucose (UA) (Negative) Urine Ketones (Negative) Urine Blood (Negative) Urine Nitrite (Negative) Urine Bilirubin (Negative) Urine Urobilinogen (<2.0) mg/dL Ur Leukocyte Esterase (Negative) Urine RBC (0-5) /hpf Urine WBC (0-5) /hpf Ur Squamous Epith Cells (0-4) /hpf Urine Bacteria (None) /hpf Urine Mucus (None) /hpf Disposition Clinical Impression: Intractable abdominal pain, Hypokalemia, Hypocalcemia Disposition: ADMITTED IP TO THIS HOSP Condition: Fair Referrals: Prudence Forrest MD [Primary Care Provider] - 1-2 days
[2022-09-28] MEDS: SODIUM CHLORIDE 0.9% 1,000 ML IV SCH (18:55)
[2022-09-28] MEDS ORDERED: Acetaminophen-Codeine 300-30mg TAB PO PRN (21:26)
[2022-09-28] MEDS ORDERED: ONDANSETRON 4 MG/2 ML VIAL IVP PRN (23:36)
[2022-09-29] MEDS: SODIUM CHLORIDE 0.9% 1,000 ML IV SCH ×4 (04:18→20:55)
--- NOTE | 2022-09-29 08:21 | P.HPIM ---
History of Present Illness H&P Date: 09/28/22 Chief Complaint: Abdominal pain 31-year-old female presents to the emergency department for abdominal pain. She has history of cholecystectomy and appendectomy. Patient reports pain in her right upper abdomen started yesterday. It radiates to the right flank. She reports nausea with decreased oral intake. No vomiting. No fever, chills, diarrhea, blood in stool. No urinary symptoms or concern for sexually infections. No chest pain or shortness of breath. Patient did come to the emergency department yesterday she was discharged with pain medication. US and lab work were negative. States she is taking a Tylenol 3 without any improvement. Blood work completed in ED visit WBC of 8.7, hemoglobin of 12.1 and platelet count of 300, sodium 140, potassium 4.5, BUN/creatinine of 10/0.8; AST/ALT of within normal limits; total bilirubin normal at 0.2; troponin less than 0.012 UA reveals trace leukocytes and moderate bacteria CT of the abdomen reveals no acute upper abdominal process; gallbladder is surgically absent Patient is admitted for further evaluation of intractable abdominal pain and hypokalemia Review of Systems REVIEW OF SYSTEMS: CONSTITUTIONAL: No fever, no malaise, no fatigue. HEENT: No recent visual problems or hearing problems. Denied any sore throat. CARDIOVASCULAR: No chest pain, orthopnea, PND, no palpitations, no syncope. PULMONARY: No shortness of breath, no cough, no hemoptysis. GASTROINTESTINAL: No diarrhea, no nausea, no vomiting, complaints of abdominal pain. NEUROLOGICAL: No headaches, no weakness, no numbness. HEMATOLOGICAL: Denies any bleeding or petechiae. GENITOURINARY: Denies any burning micturition, frequency, or urgency. MUSCULOSKELETAL/RHEUMATOLOGICAL: Denies any joint pain, swelling, or any muscle pain. ENDOCRINE: Denies any polyuria or polydipsia. The rest of the 14-point review of systems is negative. Past Medical History Past Medical History: Asthma Additional Past Medical History / Comment(s): GALLBLADDER DISORDER History of Any Multi-Drug Resistant Organisms: None Reported Past Surgical History: Appendectomy, Section, Cholecystectomy, Orthopedic Surgery Additional Past Surgical History / Comment(s): duodenal surgery in childhood, lt shoulder Past Anesthesia/Blood Transfusion Reactions: No Reported Reaction Past Psychological History: No Psychological Hx Reported Smoking Status: Never smoker Past Alcohol Use History: None Reported Past Drug Use History: None Reported - Past Family History Mother Family Medical History: No Reported History Brother(s) Family Medical History: No Reported History Medications and Allergies Home Medications Medication Instructions Recorded Confirmed Type Metoprolol Succinate (ER) [Toprol 25 mg PO DAILY 03/02/21 09/28/22 History Xl] Furosemide [Lasix] 20 mg PO DAILY 05/29/21 09/28/22 History Potassium Chloride ER [K-Dur 10] 10 meq PO DAILY 05/29/21 09/28/22 History Losartan Potassium 50 mg PO DAILY 09/27/22 09/28/22 History Acetaminophen-Codeine 300-30mg 1 tab PO DIRECTED PRN 09/28/22 09/28/22 History [Tylenol w/codeine #3] Allergies Allergy/AdvReac Type Severity Reaction Status Date / Time No Known Allergies Allergy Verified 09/28/22 19:02 Physical Exam Vitals: Vital Signs Temp Pulse Resp BP Pulse Ox 09/28/22 19:55 98.2 F 75 18 109/77 99 09/28/22 18:56 97.7 F 77 18 129/93 100 09/28/22 15:50 98.1 F 72 20 108/75 99 Intake and Output 09/28/22 09/28/22 09/28/22 06:59 14:59 22:59 Other: Weight 122.47 kg PHYSICAL EXAMINATION: GENERAL: The patient is alert and oriented x3, not in any acute distress. Well developed, well nourished. HEENT: Pupils are round and equally reacting to light. EOMI. No scleral icterus. No conjunctival pallor. Normocephalic, atraumatic. No pharyngeal erythema. No thyromegaly. CARDIOVASCULAR: S1 and S2 present. No murmurs, rubs, or gallops. PULMONARY: Chest is clear to auscultation, no wheezing or crackles. ABDOMEN: Soft, mild to moderate tenderness right upper quadrant, nondistended, normoactive bowel sounds. No palpable organomegaly. MUSCULOSKELETAL: No joint swelling or deformity. EXTREMITIES: No cyanosis, clubbing, or pedal edema. NEUROLOGICAL: Gross neurological examination did not reveal any focal deficits. SKIN: No rashes. Results CBC & Chem 7: 09/28/22 16:18 09/28/22 16:18 Labs: Abnormal Lab Results - Last 24 Hours (Table) 09/28/22 09/28/22 09/28/22 Range/Units 16:18 16:18 16:18 MCV 79.2 L (80.0-100.0) fL MCH 24.7 L (25.0-35.0) pg Potassium 3.1 L (3.5-5.1) mmol/L Chloride 115 H (98-107) mmol/L Carbon Dioxide 20 L (22-30) mmol/L Glucose 66 L (74-99) mg/dL Calcium 6.8 L (8.4-10.2) mg/dL Total Protein 5.6 L (6.3-8.2) g/dL Albumin 3.0 L (3.5-5.0) g/dL Ur Leukocyte Esterase Trace H (Negative) Urine Bacteria Moderate H (None) /hpf Urine Mucus Rare H (None) /hpf Assessment and Plan Assessment: 1. Intractable abdominal pain; etiology unclear - Workup completed in ED including a CT of the abdomen and pelvis, liver enzymes are within normal limits; lipase is normal at 68 - Patient is status post cholecystectomy - Patient is being admitted for observation; controlled with IV Dilaudid 0.5 mg every 4 hours when necessary - Patient will receive IV fluid hydration with normal saline at a rate of 130 mL - We will plan to consult surgery if patient continues to have pain 2. Hypokalemia; supplemented in ED - We'll monitor electrolytes closely with plans to supplement as needed; adonay nue with home dose of [place] 10 mEq daily 3. Possible UTI; urine is positive for leukocyte esterase and moderate bacteria; white blood count is normal and patient remains afebrile - Monitor patient clinically for any signs of infection with plans for empiric antibiotic therapy if abdominal pain continues without any source of pain 4. Hypertension; metoprolol 25 mg daily; Cozaar 50 mg daily; Lasix 20 mg daily DVT prophylaxis; SCDs CODE STATUS; full code
[2022-09-29 09:04] LABS: Basophils % (A) 0 %; Eosinophils # (A) 0.4 k/uL (0-0.7); Eosinophils % (A) 6 %; HCT 35.9 % (34.0-46.0); HGB 10.8 gm/dL (11.4-16.0); Hypochromasia Slight; Lymphocytes # (A) 2.7 k/uL (1.0-4.8); Lymphocytes % (A) 40 %; MCH 23.8 pg (25.0-35.0); MCHC 30.1 g/dL (31.0-37.0); MCV 78.8 fL (80.0-100.0); Mean Platelet Volume 8.1; Monocytes # (A) 0.4 k/uL (0-1.0); Monocytes % (A) 6 %; Neutrophils % (A) 45 %; Platelet Count 261 k/uL (150-450); RBC 4.55 m/uL (3.80-5.40); RDW 14.4 % (11.5-15.5); WBC 6.8 k/uL (3.8-10.6)
[2022-09-29 09:19] LABS: African American GFR (CKD) >90 (>60 ml/min/1.73 sqM); Anion Gap 5 mmol/L; Blood Urea Nitrogen 11 mg/dL (7-17); Calcium 8.1 mg/dL (8.4-10.2); Carbon Dioxide 23 mmol/L (22-30); Chloride 112 mmol/L (98-107); Glucose 86 mg/dL (74-99); Magnesium 1.8 mg/dL (1.6-2.3); Non-African American GFR(CKD) 83 (>60 ml/min/1.73 sqM); Sodium 140 mmol/L (137-145)
[2022-09-29] MEDS: PANTOPRAZOLE 40 MG/10 ML VIAL IVP SCH ×2 (09:19→20:54)
[2022-09-29] MEDS: LOSARTAN 50 MG TAB PO SCH (09:19)
[2022-09-29] MEDS: POTASSIUM CHLORIDE ER 10 MEQ TAB.ER.PRT PO SCH (09:19)
[2022-09-29] MEDS: FUROSEMIDE 20 MG TAB PO SCH (09:19)
[2022-09-29] MEDS: METOPROLOL SUCCINATE (ER) 25 MG TAB.ER.24H PO SCH (09:19)
[2022-09-30 07:00] VITALS: BP 117/76; PULSE 77; RESP 14; TEMP 97.7
--- NOTE | 2022-09-30 07:37 | P.PN ---
Subjective Progress Note Date: 09/29/22 31-year-old female presents to the emergency department for abdominal pain. She has history of cholecystectomy and appendectomy. Patient reports pain in her right upper abdomen started yesterday. It radiates to the right flank. She reports nausea with decreased oral intake. No vomiting. No fever, chills, diarrhea, blood in stool. No urinary symptoms or concern for sexually infections. No chest pain or shortness of breath. Patient did come to the emergency department yesterday she was discharged with pain medication. US and lab work were negative. States she is taking a Tylenol 3 without any improvement. Blood work completed in ED visit WBC of 8.7, hemoglobin of 12.1 and platelet count of 300, sodium 140, potassium 4.5, BUN/creatinine of 10/0.8; AST/ALT of within normal limits; total bilirubin normal at 0.2; troponin less than 0.012 UA reveals trace leukocytes and moderate bacteria CT of the abdomen reveals no acute upper abdominal process; gallbladder is surgically absent Patient is admitted for further evaluation of intractable abdominal pain and hypokalemia -- Patient is seen and evaluated in the room at bedside; reports improvement in nausea; continues to have abdominal pain but markedly improved compared to yesterday; computed tomography scan is negative for any acute abdominal process; patient hasn't been able to tolerate any diet because of abdominal pain and nausea; we will start patient on a diet and advance as tolerated; discharge in next 24 hours if able to tolerate diet and abdominal pain resolved Objective - Vital Signs Vital signs: Vital Signs Temp 97.8 F 09/29/22 07:00 Pulse 69 09/29/22 07:00 Resp 16 09/29/22 07:00 BP 131/87 09/29/22 07:00 Pulse Ox 100 09/29/22 07:00 FiO2 Intake & Output 09/28/22 09/29/22 09/29/22 18:59 06:59 18:59 Weight 122.47 kg 122.47 kg Other: # Voids 0 - Exam PHYSICAL EXAMINATION: GENERAL: The patient is alert and oriented x3, not in any acute distress. Well developed, well nourished. HEENT: Pupils are round and equally reacting to light. EOMI. No scleral icterus. No conjunctival pallor. Normocephalic, atraumatic. No pharyngeal erythema. No thyromegaly. CARDIOVASCULAR: S1 and S2 present. No murmurs, rubs, or gallops. PULMONARY: Chest is clear to auscultation, no wheezing or crackles. ABDOMEN: Soft, nontender, nondistended, normoactive bowel sounds. No palpable organomegaly. MUSCULOSKELETAL: No joint swelling or deformity. EXTREMITIES: No cyanosis, clubbing, or pedal edema. NEUROLOGICAL: Gross neurological examination did not reveal any focal deficits. SKIN: No rashes. - Labs CBC & Chem 7: 09/29/22 08:47 09/29/22 08:47 Labs: Abnormal Lab Results - Last 24 Hours (Table) 09/28/22 09/28/22 09/28/22 Range/Units 16:18 16:18 16:18 Hgb (11.4-16.0) gm/dL MCV 79.2 L (80.0-100.0) fL MCH 24.7 L (25.0-35.0) pg MCHC (31.0-37.0) g/dL Potassium 3.1 L (3.5-5.1) mmol/L Chloride 115 H (98-107) mmol/L Carbon Dioxide 20 L (22-30) mmol/L Glucose 66 L (74-99) mg/dL Calcium 6.8 L (8.4-10.2) mg/dL Total Protein 5.6 L (6.3-8.2) g/dL Albumin 3.0 L (3.5-5.0) g/dL Ur Leukocyte Esterase Trace H (Negative) Urine Bacteria Moderate H (None) /hpf Urine Mucus Rare H (None) /hpf 09/29/22 09/29/22 Range/Units 08:47 08:47 Hgb 10.8 L (11.4-16.0) gm/dL MCV 78.8 L (80.0-100.0) fL MCH 23.8 L (25.0-35.0) pg MCHC 30.1 L (31.0-37.0) g/dL Potassium (3.5-5.1) mmol/L Chloride 112 H (98-107) mmol/L Carbon Dioxide (22-30) mmol/L Glucose (74-99) mg/dL Calcium 8.1 L (8.4-10.2) mg/dL Total Protein (6.3-8.2) g/dL Albumin (3.5-5.0) g/dL Ur Leukocyte Esterase (Negative) Urine Bacteria (None) /hpf Urine Mucus (None) /hpf Assessment and Plan Assessment: 1. Intractable abdominal pain; etiology unclear - Workup completed in ED including a CT of the abdomen and pelvis, liver enzymes are within normal limits; lipase is normal at 68 - Patient is status post cholecystectomy - Patient is being admitted for observation; controlled with IV Dilaudid 0.5 mg every 4 hours when necessary - Patient will receive IV fluid hydration with normal saline at a rate of 130 mL - We will plan to consult surgery if patient continues to have pain 2. Hypokalemia; supplemented in ED - We'll monitor electrolytes closely with plans to supplement as needed; continue with home dose of [place] 10 mEq daily 3. Possible UTI; urine is positive for leukocyte esterase and moderate bacteria; white blood count is normal and patient remains afebrile - Monitor patient clinically for any signs of infection with plans for empiric antibiotic therapy if abdominal pain continues without any source of pain 4. Hypertension; metoprolol 25 mg daily; Cozaar 50 mg daily; Lasix 20 mg daily DVT prophylaxis; SCDs CODE STATUS; full code
[2022-09-30] MEDS: PANTOPRAZOLE 40 MG/10 ML VIAL IVP SCH (07:56)
[2022-09-30] MEDS: LOSARTAN 50 MG TAB PO SCH (07:56)
[2022-09-30] MEDS: FUROSEMIDE 20 MG TAB PO SCH (07:56)
[2022-09-30] MEDS: POTASSIUM CHLORIDE ER 10 MEQ TAB.ER.PRT PO SCH (07:57)
[2022-09-30] MEDS: SODIUM CHLORIDE 0.9% 1,000 ML IV SCH (07:57)
[2022-09-30] MEDS: METOPROLOL SUCCINATE (ER) 25 MG TAB.ER.24H PO SCH (07:57)
[2022-09-30 08:59] LABS: Basophils # (A) 0.1 k/uL (0-0.2); Basophils % (A) 1 %; Eosinophils # (A) 0.3 k/uL (0-0.7); Eosinophils % (A) 4 %; HCT 38.8 % (34.0-46.0); HGB 11.6 gm/dL (11.4-16.0); Hypochromasia Marked; Lymphocytes # (A) 2.4 k/uL (1.0-4.8); Lymphocytes % (A) 33 %; MCH 24.8 pg (25.0-35.0); MCHC 29.8 g/dL (31.0-37.0); MCV 83.2 fL (80.0-100.0); Mean Platelet Volume 7.6; Monocytes # (A) 0.5 k/uL (0-1.0); Monocytes % (A) 7 %; Neutrophils % (A) 54 %; Platelet Count 235 k/uL (150-450); RBC 4.66 m/uL (3.80-5.40); RDW 14.7 % (11.5-15.5); WBC 7.4 k/uL (3.8-10.6)
[2022-09-30 13:47] LABS: BUN/Creat Ratio 8.11 Ratio (12.00-20.00); Blood Urea Nitrogen 7.3 mg/dL (9.0-27.0); Calcium 8.7 mg/dL (8.7-10.3); Carbon Dioxide 20.9 mmol/L (21.6-31.8); Chloride 109 mmol/L (96-109); Glucose 79 mg/dL (70-110); Sodium 141 mmol/L (135-145)
== END 2022-09-30 13:16 | disposition home or self-care (01) ==
LOC: EC 15:48 → 6NMEDSUR 18:31
PROVIDERS: ADMIT Hospitalist; ATTEND Hospitalist
DX: E87.6 Hypokalemia (principal); R10.9 Unspecified abdominal pain; I10 Essential (primary) hypertension; Z90.49 Acquired absence of other specified parts of digestive tract; Z98.891 History of uterine scar from previous surgery; Z98.890 Other specified postprocedural states; Z79.899 Other long term (current) drug therapy
CPT/HCPCS: 96376 ×2; 96361 ×2; 96374; 96375; 99285; 36415; 93005; 80053; 80048 ×2; 83605; 83690; 83735; 84484; 85025 ×3; 85610; 85730; 81001; 74176; G0378 ×3; J1885; C9113 ×3; J1170; J0613

== ENCOUNTER 2022-11-27 11:17 | Day surgery (SDC) | payer OTHER ==
[2022-11-23 10:59] VITALS: BMI 42.9
[~2022-11-27 11:17] MED LIST changes: -DEXAMETHASONE SOD PHOSPHATE 4 MG/ML 1 ML VIAL IV ONE; -HYDROmorphone 0.5 MG/0.5 ML SYRINGE IVP PRN; -ONDANSETRON 4 MG/2 ML VIAL IVP ONE
[2022-11-27 12:07] VITALS: TEMP 96.9
[2022-11-27] MEDS ORDERED: LIDOCAINE 2% INJ 20 MG/ML (2 ML VIAL) ONE (13:22)
[2022-11-27] MEDS ORDERED: PROPOFOL 10 MG/ML 20 ML VIAL IV ONE (13:22)
--- NOTE | 2022-11-27 13:29 | P.PCN ---
Date of Procedure: 11/27/22 Procedure(s) Performed: BRIEF HISTORY: Patient is a 31-year-old, pleasant, white female scheduled for an upper endoscopy as a part of evaluation of chronic epigastric pain for the last 2 months duration. She was started on Protonix 40 mg daily with some help.. PROCEDURE PERFORMED: Esophagogastroduodenoscopy with biopsy. PREOPERATIVE DIAGNOSIS: Chronic epigastric pain. IV sedation per anesthesia. PROCEDURE: After informed consent was obtained, the patient was brought into the endoscopy unit. IV sedation was administered by Anesthesia under continuous monitoring. Initially the Olympus GIF-140 video endoscope was inserted into the mouth. Esophagus intubated without any difficulty. It was gradually advanced into the stomach and duodenum and carefully examined. The bulb and the second part of the duodenum appeared normal. Biopsies were done from the duodenum to evaluate for celiac disease. The scope at this time was withdrawn to the stomach, adequately insufflated with air, and upon careful examination, mucosa of the antrum, patchy areas of erythema consistent with gastritis and biopsies were done from this area. Mucosa of the body, cardia and the fundus appeared normal. The scope was then withdrawn into the esophagus. The GE junction was located at 39 cm from the incisors. The esophagus appeared normal. There were no erosions or ulcerations seen and the patient tolerated the procedure well. IMPRESSION: 1. Mild antral gastritis but no evidence of peptic ulcer disease 2. Normal-appearing esophagus with no evidence of esophagitis RECOMMENDATIONS: The findings of this examination were discussed with the patient as well as a family. She was advised to continue with Protonix 40 mg daily and follow antireflux measures. Follow up in office in 3-4 weeks..
[2022-11-27 14:27] VITALS: BP 103/62; PULSE 77; RESP 18
== END 2022-11-27 14:27 | disposition home or self-care (01) ==
LOC: ORWHC2ENDO 11:17
PROVIDERS: ATTEND Internal Medicine Gastroenterology
DX: K29.70 Gastritis, unspecified, without bleeding (principal); J45.909 Unspecified asthma, uncomplicated; K21.9 Gastro-esophageal reflux disease without esophagitis; Z68.42 Body mass index [BMI] 45.0-49.9, adult; E66.01 Morbid (severe) obesity due to excess calories; Z79.899 Other long term (current) drug therapy; Z98.890 Other specified postprocedural states
CPT/HCPCS: 81025; 43239; J2704; J2001; 88305; 88342

== ENCOUNTER → 2023-04-02 | Outpatient (CLI) | payer OTHER ==
--- NOTE | 2023-04-05 04:54 | MR ---
EXAMINATION TYPE: MR knee RT wo con DATE OF EXAM: 04/02/2023 COMPARISON: Outside right knee x-ray March 26, 2023 HISTORY: Rt knee pain and swelling for 2 months TECHNIQUE: Multiplanar, multisequence images of the knee is performed without IV contrast. FINDINGS: MEDIAL MENISCUS: Anterior and posterior horns are intact without tear. LATERAL MENISCUS: Anterior and posterior horns are intact without tear. CRUCIATE LIGAMENTS: The posterior cruciate ligament is intact and unremarkable. Complete tear of ACL is redemonstrated. COLLATERAL LIGAMENTS: The medial collateral ligament and lateral collateral ligament complex are inta ct and unremarkable. EXTENSOR MECHANISM: Visualized quadriceps and patellar tendons are intact. EFFUSION: No significant suprapatellar joint effusion. POPLITEAL CYST: No popliteal/shine cyst. TRICOMPARTMENT SPACES: Mild tricompartment joint space loss and spurring. CARTILAGE: Tricompartmental articular cartilage is preserved. BONE MARROW SIGNAL: Heterogeneity consistent with red marrow reconversion. No suspicious increased T2 signal or focal osseous edema. OTHER: No additional significant abnormality is appreciated. IMPRESSION: Complete tear of the ACL redemonstrated. No new meniscal or ligamentous tear. No suspicio us osseous edema currently.
== END | disposition home or self-care (01) ==
LOC: RADMRIMAIN 06:59
PROVIDERS: ATTEND Internal Medicine
DX: M23.611 Other spontaneous disruption of anterior cruciate ligament of right knee (principal)

== ENCOUNTER → 2023-06-07 | Outpatient (CLI) | payer OTHER ==
--- NOTE | 2023-06-07 09:03 | US ---
EXAMINATION TYPE: US renal artery duplex complete DATE OF EXAM: 06/07/2023 COMPARISON: US & CT CLINICAL INDICATION: Female, 32 years old with history of I10 Essential hypertension; R74.6; HTN MEASUREMENTS: RENAL SIZE: Right Kidney: 7.2 X 3.1 X 3.6 CM- measured on same day US Abdomen Left Kidney: 9.8 X 5.1 X 5.0 CM- measured on same day US Abdomen Abd Aorta: 89 cm/s RESISTANCE INDEX Right: 0.6 Left: 0.6 RA/AO RATIO (< 3.5 ) Right: 0.8 Left: 1.8 RENAL ARTERY VELOCITY ( < 180 cm/s) Right: 71.5 Left: 158.6 Geophysical Drafter Notes: Very limited exam due to morbidly obese pt, atrophic right kidney, and pt conge sted- unable to hold breath well Atrophic right kidney causing limited views of vessels Limited views bilaterally show no evidence of renal artery stenosis IMPRESSION: 1. Mild elevated left arterial velocity suggesting mild degree of stenosis. 2. No evidence for significant right renal artery stenosis.
== END | disposition home or self-care (01) ==
LOC: RADUSWWP 06:55
PROVIDERS: ATTEND Family Medicine
DX: I10 Essential (primary) hypertension (principal); R74.8 Abnormal levels of other serum enzymes; N26.1 Atrophy of kidney (terminal)
CPT/HCPCS: 76700; 93975

== ENCOUNTER 2024-01-13 09:59 | Emergency (ER) | payer OTHER ==
[2024-01-13] MEDS: ACETAMINOPHEN TAB 500 MG TAB PO STA (10:42)
[2024-01-13] MEDS: IBUPROFEN 800 MG TAB PO STA (10:42)
[2024-01-13] MEDS: DEXAMETHASONE SOD PHOSPHATE 10 MG/ML 1 ML VIAL IM STA (10:43)
[2024-01-13] MEDS: BENZONATATE 100 MG CAP PO STA (10:43)
--- NOTE | 2024-01-13 10:49 | ED ---
URI HPI - General Chief Complaint: Fever Stated Complaint: SOB Time Seen by Provider: 01/13/24 10:13 Source: patient, RN notes reviewed Mode of arrival: ambulatory Limitations: no limitations - History of Present Illness Initial Comments: This is a 33-year-old female who presents to the emergency department for fevers, coughing, and congestion. States that it started 4 days ago. She was around her friend's children who had similar symptoms. She has not yet taken any medication for her fever today. She has a history of asthma but is unsure if that is causing problems. Does not take medication for the asthma or use any breathing treatments/inhalers. She was using [id number] Mucinex without much relief. The cough is nonproductive. MD Complaint: fever, cough, nasal congestion - Related Data Previous Rx's Medication Instructions Recorded Albuterol Sulfate [Albuterol 1 - 2 puff PO Q4-6H PRN #8.5 gm 01/13/24 Sulfate Hfa] Azithromycin [Zithromax] 250 mg PO DIRECTED 5 Days #6 tab 01/13/24 Promethazine/Dextromethorphan 5 ml PO Q4-6H PRN #473 ml 01/13/24 [Promethazine-Dm Syrup] Allergies Allergy/AdvReac Type Severity Reaction Status Date / Time No Known Allergies Allergy Verified 01/13/24 10:38 Review of Systems ROS Statement: Those systems with pertinent positive or pertinent negative responses have been documented in the HPI. ROS Other: All systems not noted in ROS Statement are negative. Past Medical History Past Medical History: Asthma, GERD/Reflux, Hypertension Additional Past Medical History / Comment(s): GALLBLADDER DISORDER History of Any Multi-Drug Resistant Organisms: None Reported Past Surgical History: Appendectomy, Section, Cholecystectomy, Orthopedic Surgery Additional Past Surgical History / Comment(s): duodenal surgery in childhood, lt shoulder, Past Anesthesia/Blood Transfusion Reactions: No Reported Reaction Past Psychological History: No Psychological Hx Reported Smoking Status: Never smoker - Past Family History Mother Family Medical History: No Reported History Brother(s) Family Medical History: No Reported History General Exam Limitations: no limitations General appearance: alert, in no apparent distress Head exam: Present: atraumatic, normocephalic, normal inspection Eye exam: Present: normal appearance, PERRL, EOMI. Absent: scleral icterus, conjunctival injection, periorbital swelling Respiratory exam: Present: normal lung sounds bilaterally. Absent: respiratory distress, wheezes, rales, rhonchi, stridor Cardiovascular Exam: Present: regular rate, normal rhythm, normal heart sounds. Absent: systolic murmur, diastolic murmur, rubs, gallop, clicks Neurological exam: Present: alert, oriented X3, CN II-XII intact Psychiatric exam: Present: normal affect, normal mood Skin exam: Present: warm, dry, intact, normal color. Absent: rash Course Vital Signs 01/13/24 01/13/24 01/13/24 10:01 11:50 11:53 Temperature 102.5 F H 101.8 F H Pulse Rate 125 H 120 H 120 H Respiratory 18 20 Rate Blood Pressure 152/115 143/94 O2 Sat by Pulse 95 91 L Oximetry 01/13/24 01/13/24 01/13/24 12:04 12:15 12:22 Temperature 98.6 F Pulse Rate 120 H 115 H 113 H Respiratory Rate Blood Pressure O2 Sat by Pulse 93 L Oximetry Medical Decision Making - Medical Decision Making This is a 33 year female who presents to the emergency department for coughing and congestion. Was pt. sent in by a medical professional or institution? @ -No Did you speak to anyone other than the patient for history? @ -No Did you review nursing and triage notes? @ -Yes, and I agree, it is accurate with regards to the patient's symptoms. Were old charts reviewed? @ -No Differential Diagnosis? @ -Differential Cough: Influenza, Covid, RSV, croup, allergic rhinitis, GERD, pneumonia, bronchitis, COPD, viral pharyngitis, streptococcal pharyngitis, this is not meant to be an all-inclusive list. EKG interpreted by me (3pts min.)? @ -Not obtained X-rays interpreted by me (1pt min.)? @ -Chest x-ray obtained. My interpretation identifies a right lower lobe opacity. CT interpreted by me (1pt min.)? @ -Not obtained U/S interpreted by me (1pt. min.)? @ -Not obtained What testing was considered but not performed? (CT, X-rays, U/S, labs)? Why? @ -None What meds were considered but not given? Why? @ -None Did you discuss the management of the patient with other professionals? @ -No Did you reconcile home meds? @ -No Was smoking cessation discussed for >3mins.? @ -No Was critical care preformed (if so, how long)? @ -No Were there social determinants of health that impacted care today? How? (Homelessness, low income, unemployed, alcoholism, drug addiction, transportation, low edu. Level, literacy, decrease access to med. care, fdc, rehab)? @ -No Was there de-escalation of care discussed even if they declined? (Discuss DNR or withdrawal of care, Hospice)? @ -No What co-morbidities impacted this encounter? (DM, HTN, Smoking, COPD, CAD, Cancer, CVA, Hep., AIDS, mental health diagnosis, sleep apnea, morbid obesity)? @ -Asthma Was patient admitted / discharged? @ -Discharged. COVID, influenza, and RSV testing negative. Chest x-ray demonstrates a right lower lobe pneumonia. Patient was febrile on arrival and treated with ibuprofen and Tylenol. She was also given IM Decadron, Tessalon Perles, and a DuoNeb breathing treatment. Patient for azithromycin, Promethazine DM cough syrup, and an albuterol inhaler provided. Advised she continue with ibuprofen and Tylenol as needed for fevers. Also advised follow- up with her primary care provider for reevaluation of symptoms and to ensure resolution of pneumonia. We did discuss strict return parameters as well. Patient discharged home in stable condition. Case discussed with ED attending Dr. Duarte. Return precautions reviewed in depth, the patient is instructed to return to the emergency department with any new, worsening, or concerning symptoms. Patient verbalized understanding. Undiagnosed new problem with uncertain prognosis? @ -None Drug Therapy requiring intensive monitoring for toxicity (Heparin, Nitro, Insulin, Cardizem)? @ -None Were any procedures done? @ -None Diagnosis/symptom? @ -Pneumonia Acute, or Chronic, or Acute on Chronic? @ -Acute Uncomplicated (without systemic symptoms) or Complicated (systemic symptoms)? @ -Uncomplicated Side effects of treatment? @ -None Exacerbation, Progression, or Severe Exacerbation] @ -Not applicable Poses a threat to life or bodily function? @ -Unlikely - Lab Data Lab Results 01/13/24 Range/Units 10:40 Influenza Type A (PCR) Not Detected (Not Detectd) Influenza Type B (PCR) Not Detected (Not Detectd) RSV (PCR) Not Detected (Not Detectd) SARS-CoV-2 (PCR) Not Detected (Not Detectd) - Radiology Data Radiology results: report reviewed, image reviewed Disposition Clinical Impression: Pneumonia Disposition: HOME SELF-CARE Instructions (If sedation given, give patient instructions): Pneumonia (ED) Additional Instructions: Return to the emergency department with any new, worsening, or concerning symptoms. Take the antibiotic as prescribed for 5 days. Use the albuterol inhaler every 4-6 hours as needed to help with shortness of breath. Take the cough medication every 4-6 hours as needed. Follow up with your primary care provider in 1-2 days. Prescriptions: Albuterol Sulfate [Albuterol Sulfate Hfa] 1 - 2 puff PO Q4-6H PRN #8.5 gm PRN Reason: Shortness Of Breath Promethazine/Dextromethorphan [Promethazine-Dm Syrup] 5 ml PO Q4-6H PRN #473 ml PRN Reason: Cough Azithromycin [Zithromax] 250 mg PO DIRECTED 5 Days #6 tab Is patient prescribed a controlled substance at d/c from ED?: No Referrals: Prudence Forrest MD [Primary Care Provider] - 1-2 days Time of Disposition: 12:00
--- NOTE | 2024-01-13 10:55 | XR ---
EXAMINATION TYPE: XR chest 2V DATE OF EXAM: 01/13/2024 COMPARISON: 10/29/2020 HISTORY: 33-year-old female cough and difficulty in breathing TECHNIQUE: PA and lateral views FINDINGS: Heart upper limits of normal in size. Interstitial density has increased. However, there is more foca l patchy airspace opacity at the right lower lung. IMPRESSION: 1. Correlate for right lower lobe pneumonia. 2. Background increased interstitial density suggesting bronchitis or asthma. [facility], , 01/13/2024 10:53 AM
[2024-01-13] MEDS: IPRATROPIUM-ALBUTEROL 3 ML NEB INHALATION STA (11:53)
[2024-01-13 12:00] VITALS: BP 143/94; RESP 20
[2024-01-13] MEDS: guaiFENesin-Coden 100-10MG/5ML 10 ML CUP PO STA (12:20)
[2024-01-13] MEDS: AZITHROMYCIN 500 MG TAB PO STA (12:20)
[2024-01-13 12:24] VITALS: PULSE 113; TEMP 98.6
== END 2024-01-13 12:25 | disposition home or self-care (01) ==
LOC: EC 09:59
DX: J18.9 Pneumonia, unspecified organism (principal)
CPT/HCPCS: 71046; 87636; 94640; 96372; 99283

== ENCOUNTER 2024-01-20 08:34 | Emergency (ER) | payer OTHER ==
[2024-01-20 08:43] VITALS: RESP 18
--- NOTE | 2024-01-20 08:58 | ED ---
Neck Injury/Pain HPI - General Chief Complaint: Neck Pain/Injury Stated Complaint: NECK PAIN Time Seen by Provider: 01/20/24 08:45 Source: patient, RN notes reviewed Mode of arrival: ambulatory Limitations: no limitations - History of Present Illness Initial Comments: 33-year-old female presents emergency department complaint of neck pain. Patient states that she woke up with around Saturday. Patient states has been persistent she does get some relief with Tylenol Motrin. Patient states she has no weakness states there is some pain and radiates down to her shoulder but states it is only exacerbated by movement. Patient denies any chest pain or shortness of breath no headache no other associated symptoms. - Related Data Previous Rx's Medication Instructions Recorded Albuterol Sulfate [Albuterol 1 - 2 puff PO Q4-6H PRN #8.5 gm 01/13/24 Sulfate Hfa] Azithromycin [Zithromax] 250 mg PO DIRECTED 5 Days #6 tab 01/13/24 Promethazine/Dextromethorphan 5 ml PO Q4-6H PRN #473 ml 01/13/24 [Promethazine-Dm Syrup] Cyclobenzaprine [Flexeril] 10 mg PO TID PRN #15 tab 01/20/24 Ibuprofen [Motrin] 600 mg PO Q8HR PRN #20 tab 01/20/24 Allergies Allergy/AdvReac Type Severity Reaction Status Date / Time No Known Allergies Allergy Verified 01/13/24 10:38 Review of Systems ROS Statement: Those systems with pertinent positive or pertinent negative responses have been documented in the HPI. ROS Other: All systems not noted in ROS Statement are negative. Past Medical History Past Medical History: Asthma, GERD/Reflux, Hypertension Additional Past Medical History / Comment(s): GALLBLADDER DISORDER History of Any Multi-Drug Resistant Organisms: None Reported Past Surgical History: Appendectomy, Section, Cholecystectomy, Orthopedic Surgery Additional Past Surgical History / Comment(s): duodenal surgery in childhood, lt shoulder, Past Anesthesia/Blood Transfusion Reactions: No Reported Reaction Past Psychological History: No Psychological Hx Reported Smoking Status: Never smoker Past Alcohol Use History: None Reported Past Drug Use History: None Reported - Past Family History Mother Family Medical History: No Reported History Brother(s) Family Medical History: No Reported History General Exam Limitations: no limitations General appearance: alert, in no apparent distress Head exam: Present: atraumatic, normocephalic, normal inspection Eye exam: Present: normal appearance, PERRL, EOMI. Absent: scleral icterus, conjunctival injection, periorbital swelling ENT exam: Present: normal exam, mucous membranes moist Neck exam: Present: normal inspection, tenderness (Right trapezius tenderness), full ROM. Absent: meningismus, lymphadenopathy Respiratory exam: Present: normal lung sounds bilaterally. Absent: respiratory distress, wheezes, rales, rhonchi, stridor Cardiovascular Exam: Present: regular rate, normal rhythm, normal heart sounds. Absent: systolic murmur, diastolic murmur, rubs, gallop, clicks Course Vital Signs 01/20/24 08:40 Temperature 97.9 F Pulse Rate 86 Respiratory 18 Rate Blood Pressure 158/109 O2 Sat by Pulse 96 Oximetry Medical Decision Making - Medical Decision Making Was pt. sent in by a medical professional or institution (, PA, AVIATION TACTICAL READINESS OFFICER, urgent care, hospital, or group home...) When possible be specific @ -No Did you speak to anyone other than the patient for history (EMS, parent, family, police, friend...)? What history was obtained from this source @ -No Did you review nursing and triage notes (agree or disagree)? Why? @ -I reviewed and agree with nursing and triage notes Were old charts reviewed (outside hosp., previous admission, EMS record, old EKG, old radiological studies, urgent care reports/EKG's, group home records)? Report findings @ -No old charts were reviewed Differential Diagnosis (chest pain, altered mental status, abdominal pain women, abdominal pain men, vaginal bleeding, weakness, fever, dyspnea, syncope, headache, dizziness, GI bleed, back pain, seizure, CVA, palpatations, mental health, musculoskeletal)? @ -Cervical strain, trapezius muscle spasm, torticollis EKG interpreted by me (3pts min.). @ -None X-rays interpreted by me (1pt min.). @ -None done CT interpreted by me (1pt min.). @ -None done U/S interpreted by me (1pt. min.). @ -None done What testing was considered but not performed or refused? (CT, X-rays, U/S, labs)? Why? @ -None What meds were considered but not given or refused? Why? @ -None Did you discuss the management of the patient with other professionals (professionals i.e. , PA, AVIATION TACTICAL READINESS OFFICER, lab, RT, psych nurse, psychotherapist social worker, pattern developer, teacher, conservation officer, embedded case manager)? Give summary @ -No Was smoking cessation discussed for >3mins.? @ -No Was critical care preformed (if so, how long)? @ -No Were there social determinants of health that impacted care today? How? (Homelessness, low income, unemployed, alcoholism, drug addiction, transportation, low edu. Level, literacy, decrease access to med. care, fpc, rehab)? @ -No Was there de-escalation of care discussed even if they declined (Discuss DNR or withdrawal of care, Hospice)? DNR status @ -No What co-morbidities impacted this encounter? (DM, HTN, Smoking, COPD, CAD, Cancer, CVA, ARF, Chemo, Hep., AIDS, mental health diagnosis, sleep apnea, morbid obesity)? @ -None Was patient admitted / discharged? Hospital course, mention meds given and route, prescriptions, significant lab abnormalities, going to OR and other pertinent info. @ -Discharge patient has right trapezius muscle spasm, tenderness palpation patient treated with anti-inflammatories, muscle x-rays. She will continue heat, ice and stretching and close follow-up with PCP. Patient blood pressure was elevated though she did not take her morning medication she is advised to take her medications as directed. Undiagnosed new problem with uncertain prognosis? @ -No Drug Therapy requiring intensive monitoring for toxicity (Heparin, Nitro, Insulin, Cardizem)? @ -No Were any procedures done? @ -No Diagnosis/symptom? @ -Trapezius muscle spasm Acute, or Chronic, or Acute on Chronic? @ -Acute Uncomplicated (without systemic symptoms) or Complicated (systemic symptoms)? @ -Uncomplicated Side effects of treatment? @ -No Exacerbation, Progression, or Severe Exacerbation? @ -No Poses a threat to life or bodily function? How? (Chest pain, [place], ID, pneumonia, PE, COPD, DKA, ARF, appy, cholecystitis, CVA, Diverticulitis, Homicidal, Suicidal, threat to staff... and all critical care pts) @ -No Disposition Clinical Impression: Trapezius muscle spasm Disposition: HOME SELF-CARE Condition: Stable Instructions (If sedation given, give patient instructions): Spasmodic Torticollis (ED) Additional Instructions: Please return to the Emergency Department if symptoms worsen or any other concerns. Prescriptions: Cyclobenzaprine [Flexeril] 10 mg PO TID PRN #15 tab PRN Reason: Muscle Spasm Ibuprofen [Motrin] 600 mg PO Q8HR PRN #20 tab PRN Reason: Pain Is patient prescribed a controlled substance at d/c from ED?: No Referrals: Prudence Forrest MD [Primary Care Provider] - 1-2 days Time of Disposition: 08:58
[2024-01-20 09:15] VITALS: BP 156/109; PULSE 88; TEMP 98
== END 2024-01-20 09:06 | disposition home or self-care (01) ==
LOC: EC 08:34
DX: M62.830 Muscle spasm of back (principal)
CPT/HCPCS: 99283

== ENCOUNTER 2024-06-26 19:59 | Emergency (ER) | payer OTHER ==
--- NOTE | 2024-06-26 20:22 | ED ---
ENT HPI - General Chief complaint: ENT Stated complaint: Sore throat, ear ache Time Seen by Provider: 06/26/24 20:22 Source: patient Mode of arrival: ambulatory Limitations: no limitations - History of Present Illness Initial comments: 33-year-old female presenting with chief complaint of sore throat. Symptoms started earlier this week. Patient is also complaining of bilateral ear pain and swollen lymph nodes. States that she feels a lot of phlegm forming in her throat and she has a mild cough. Admits to fever. No difficulty breathing. No nausea vomiting or abdominal pain. No hearing changes. Her daughter is sick with similar symptoms - Related Data Previous Rx's Medication Instructions Recorded Albuterol Sulfate [Albuterol 1 - 2 puff PO Q4-6H PRN #8.5 gm 01/13/24 Sulfate Hfa] Azithromycin [Zithromax] 250 mg PO DIRECTED 5 Days #6 tab 01/13/24 Promethazine/Dextromethorphan 5 ml PO Q4-6H PRN #473 ml 01/13/24 [Promethazine-Dm Syrup] Cyclobenzaprine [Flexeril] 10 mg PO TID PRN #15 tab 01/20/24 Ibuprofen [Motrin] 600 mg PO Q8HR PRN #20 tab 01/20/24 Amoxicillin 500 mg PO Q12HR 10 Days #20 cap 06/26/24 Allergies Allergy/AdvReac Type Severity Reaction Status Date / Time No Known Allergies Allergy Verified 06/26/24 20:20 Review of Systems ROS Statement: Those systems with pertinent positive or pertinent negative responses have been documented in the HPI. ROS Other: All systems not noted in ROS Statement are negative. Past Medical History Past Medical History: Asthma, GERD/Reflux, Hypertension Additional Past Medical History / Comment(s): GALLBLADDER DISORDER History of Any Multi-Drug Resistant Organisms: None Reported Past Surgical History: Appendectomy, Section, Cholecystectomy, Orthopedic Surgery Additional Past Surgical History / Comment(s): duodenal surgery in childhood, lt shoulder, Past Anesthesia/Blood Transfusion Reactions: No Reported Reaction Past Psychological History: No Psychological Hx Reported Smoking Status: Never smoker Past Alcohol Use History: None Reported Past Drug Use History: None Reported - Past Family History Mother Family Medical History: No Reported History Brother(s) Family Medical History: No Reported History General Exam - General Exam Comments Initial Comments: Visual Physical Exam Vital signs reviewed General: Well-appearing, nontoxic, no acute distress. Head: Normocephalic, atraumatic Eyes: PERRLA, EOMI ENT: Airway patent Chest: Nonlabored breathing Skin: No visual rash, normal skin tone Neuro: Alert and oriented 3 Musculoskeletal: No gross abnormalities Limitations: no limitations General appearance: alert, in no apparent distress Head exam: Present: atraumatic, normocephalic, normal inspection Eye exam: Present: normal appearance, EOMI. Absent: periorbital swelling ENT exam: Present: TM's normal bilaterally Expanded Throat exam: tonsillar erythema, tonsillomegaly Neck exam: Present: normal inspection, tenderness, lymphadenopathy. Absent: meningismus Respiratory exam: Present: normal lung sounds bilaterally. Absent: respiratory distress, wheezes, rales, rhonchi, stridor Cardiovascular Exam: Present: regular rate, normal rhythm, normal heart sounds. Absent: systolic murmur, diastolic murmur, rubs, gallop, clicks Neurological exam: Present: alert, oriented X3 Psychiatric exam: Present: normal affect, normal mood Skin exam: Present: warm, dry, normal color Course Vital Signs 06/26/24 20:17 Temperature 101 F H Pulse Rate 102 H Respiratory 18 Rate Blood Pressure 164/123 O2 Sat by Pulse 99 Oximetry Medical Decision Making - Medical Decision Making I performed the quick note portion of this visit, electronically signed Isaiah Carreno PA-C Was pt. sent in by a medical professional or institution (ERVIN Johnston, SATELLITE MANAGER, urgent care, hospital, or alf...) When possible be specific @ -No Did you speak to anyone other than the patient for history (EMS, parent, family, police, friend...)? What history was obtained from this source @ -No Did you review nursing and triage notes (agree or disagree)? Why? @ -I reviewed and agree with nursing and triage notes Were old charts reviewed (outside hosp., previous admission, EMS record, old EKG, old radiological studies, urgent care reports/EKG's, alf records)? Report findings @ -No old charts were reviewed Differential Diagnosis (chest pain, altered mental status, abdominal pain women, abdominal pain men, vaginal bleeding, weakness, fever, dyspnea, syncope, headache, dizziness, GI bleed, back pain, seizure, CVA, palpatations, mental health, musculoskeletal)? @ -Differential includes strep pharyngitis, viral pharyngitis, sinusitis, peritonsillar abscess, not an all-inclusive list EKG interpreted by me (3pts min.). @ -As above X-rays interpreted by me (1pt min.). @ -None done CT interpreted by me (1pt min.). @ -None done U/S interpreted by me (1pt. min.). @ -None done What testing was considered but not performed or refused? (CT, X-rays, U/S, labs)? Why? @ -None What meds were considered but not given or refused? Why? @ -None Did you discuss the management of the patient with other professionals (professionals i.e. , PA, SATELLITE MANAGER, lab, RT, psych nurse, social media intern, check writer, teacher, juvenile correctional officer, housing case manager)? Give summary @ -No Was smoking cessation discussed for >3mins.? @ -No Was critical care preformed (if so, how long)? @ -No Were there social determinants of health that impacted care today? How? (Homelessness, low income, unemployed, alcoholism, drug addiction, transportation, low edu. Level, literacy, decrease access to med. care, long term, rehab)? @ -No Was there de-escalation of care discussed even if they declined (Discuss DNR or withdrawal of care, Hospice)? DNR status @ -No What co-morbidities impacted this encounter? (DM, HTN, Smoking, COPD, CAD, Cancer, CVA, ARF, Chemo, Hep., AIDS, mental health diagnosis, sleep apnea, morbid obesity)? @ -None Was patient admitted / discharged? Hospital course, mention meds given and route, prescriptions, significant lab abnormalities, going to OR and other pertinent info. @ -33-year-old female presenting with chief complaint of sore throat. Workup initiated by triage. She is positive for group A strep. Later placed in the [facility] room and examined by myself. She does have enlarged tonsils with erythema. No midline shift. No stridor drooling or voice changes. She will be treated with amoxicillin. Given Motrin and Tylenol for her fever. She is educated on today's findings and treatment plan. Follow-up with PCP. Report back to ER with any new or worsening symptoms. Discussed return parameters and answered all questions. Patient conveyed verbal understanding and agreed to the plan. I discussed this case in detail with my attending Dr. Lewis Undiagnosed new problem with uncertain prognosis? @ -No Drug Therapy requiring intensive monitoring for toxicity (Heparin, Nitro, Insulin, Cardizem)? @ -No Were any procedures done? @ -No Diagnosis/symptom? @ -Strep pharyngitis Acute, or Chronic, or Acute on Chronic? @ -Acute Uncomplicated (without systemic symptoms) or Complicated (systemic symptoms)? @ -complicated Side effects of treatment? @ -No Exacerbation, Progression, or Severe Exacerbation? @ -No Poses a threat to life or bodily function? How? (Chest pain, [place], MA, pneumonia, PE, COPD, DKA, ARF, appy, cholecystitis, CVA, Diverticulitis, Homicidal, Suicidal, threat to staff... and all critical care pts) @ -Potential with any infection, seemingly low likelihood at this time - Lab Data Lab Results 06/26/24 06/26/24 Range/Units 20:21 20:21 Influenza Type A (PCR) Not Detected (Not Detectd) Influenza Type B (PCR) Not Detected (Not Detectd) RSV (PCR) Not Detected (Not Detectd) SARS-CoV-2 (PCR) Not Detected (Not Detectd) Group A Strep (PCR) DETECTED A (Not Detectd) Disposition Clinical Impression: Strep pharyngitis Disposition: HOME SELF-CARE Condition: Good Instructions (If sedation given, give patient instructions): Strep Throat (ED) Additional Instructions: Follow-up with PCP. Report back to ER with any new or worsening symptoms. Take Motrin and Tylenol as needed for fever and pain control. Take medication as prescribed Prescriptions: Amoxicillin 500 mg PO Q12HR 10 Days #20 cap Is patient prescribed a controlled substance at d/c from ED?: No Referrals: Prudence Forrest MD [Primary Care Provider] - 1-2 days Time of Disposition: 21:34
[2024-06-26 21:07] LABS: Influenza A Not Detected (Not Detectd); Influenza B Not Detected (Not Detectd); RSV Not Detected (Not Detectd)
[2024-06-26] MEDS: AMOXICILLIN 500 MG CAP PO STA (22:07)
[2024-06-26] MEDS: IBUPROFEN 600 MG TAB PO STA (22:08)
[2024-06-26] MEDS: ACETAMINOPHEN TAB 325 MG TAB PO STA (22:08)
[2024-06-26 22:36] VITALS: BP 166/126; PULSE 106; RESP 20; TEMP 98.1
== END 2024-06-26 22:44 | disposition home or self-care (01) ==
LOC: EC 19:59
DX: J02.0 Streptococcal pharyngitis (principal); Z11.52 Encounter for screening for COVID-19
CPT/HCPCS: 87636; 87651; 99283

== ENCOUNTER → 2024-10-16 | Outpatient (CLI) | payer OTHER ==
[2024-10-16 15:42] LABS: Basophils # (A) 0.08 X 10*3/uL (0.00-0.10); Basophils % (A) 0.8 %; Eosinophils # (A) 0.36 X 10*3/uL (0.04-0.35); Eosinophils % (A) 3.7 %; HCT 41.8 % (37.2-46.3); HGB 13.4 g/dL (12.0-15.0); Immature Grans, Automated 0.30 %; Lymphocytes # (A) 4.05 X 10*3/uL (0.90-5.00); Lymphocytes % (A) 41.3 %; MCH 27.2 pg (27.0-32.0); MCHC 32.1 g/dL (32.0-37.0); MCV 85.0 FL (80.0-97.0); Monocytes # (A) 1.05 X 10*3/uL (0.20-1.00); Monocytes % (A) 10.7 %; NRBC Per 100 WBC 0 X 10*3/uL (0.00-0.01); Neutrophils # (A) 4.24 X 10*3/uL (1.80-7.70); Neutrophils % (A) 43.2 %; Platelet Count 349 X 10*3/uL (140-440); RBC 4.92 X 10*6/uL (4.10-5.20); RDW 14.4 % (11.5-14.5); WBC 9.81 X 10*3/uL (4.50-10.00)
[2024-10-16 17:17] LABS: Anion Gap 12.7 mmol/L (4.00-12.00); Carbon Dioxide 24.3 mmol/L (21.6-31.8); Chloride 108.0 mmol/L (96-109); Potassium 4.0 mmol/L (3.5-5.5); Sodium 145.0 mmol/L (135-145)
== END | disposition home or self-care (01) ==
LOC: LABPAT 10:44
PROVIDERS: ATTEND Orthopaedic Surgery
DX: M23.92 Unspecified internal derangement of left knee (principal)
CPT/HCPCS: 36415; 80051; 85025